=== PATIENT | male | born 1945 | race Caucasian/White ===

== ENCOUNTER 2019-07-17 12:06 | Outpatient (CLI) | payer MEDICARE, SELFPAY ==
[2019-07-17 12:46] LABS: CRP < 0.5 mg/dL (<1.0)
[2019-07-17 12:52] LABS: Erythrocyte Sedimentation Rate 23 mm/hr (0-20)
[2019-07-17 13:43] LABS: Vitamin D 25 Hydroxy 44.3 ng/mL
[2019-07-20 03:39] LABS: Homocysteine 6.4 umol/L (<11.4)
== END 2019-07-17 12:07 | disposition home or self-care (01) ==
PROVIDERS: PCP Internal Medicine; Visit Provider Internal Medicine
DX: R53.1 Weakness (principal); E55.9 Vitamin D deficiency, unspecified; I11.0 Hypertensive heart disease with heart failure
CPT/HCPCS: 36415; 82306; 83090; 85652; 86140

== ENCOUNTER 2019-08-30 15:19 | Outpatient (CLI) | payer MEDICARE, SELFPAY ==
--- NOTE | ~2019-08-30 | CT_ITS ---
EXAMINATION: CT lung screening DATE: 08/30/2019 15:47 INDICATION: Personal history of nicotine dependence, prior smoker with 35 pack year history TECHNIQUE: Computed tomography (CT) of the chest was performed without intravenous contrast. The dose -length product (DLP) was 03/01/2019 mGy-cm. Automated exposure control and iterative reconstruction technique were employed. COMPARISON: 03/01/2019 FINDINGS: There is a stable 7 mm nodule of the left lower lobe on image 82. Also seen is a stable 6 m m nodule adjacent to the hemidiaphragm the left lower lobe on image 87. A 7 mm nodule is present in t he right upper lobe on image 43 not currently identified on the prior examination, possibly infectiou s or inflammatory. There is moderate emphysema. There is no pleural effusion or pneumothorax. No path ologically enlarged thoracic lymph nodes are identified. The heart size is normal. Calcified right hi lar lymph nodes are consistent with old granulomatous disease. Stones are present in the nondistended gallbladder. There are bridging osteophytes at multiple levels in the spine, consistent with diffuse idiopathic skeletal hyperostosis (DISH). IMPRESSION: 1. Lung-RADS category 4A: Findings for which additional diagnostic testing and/or tissue sampling is recommended. Follow-up CT in three months is recommended. Reviewed, dictated and finalized at location [facility]. IMPRESSION: 1. Lung-RADS category 4A: Findings for which additional diagnostic testing and/ or tissue sampling is recommended. Follow-up CT in three months is recommended.
== END 2019-08-30 15:20 | disposition home or self-care (01) ==
LOC: ANHIMG 15:28
PROVIDERS: PCP Internal Medicine; Visit Provider Internal Medicine
DX: Z12.2 Encounter for screening for malignant neoplasm of respiratory organs (principal); Z87.891 Personal history of nicotine dependence
CPT/HCPCS: G0297

== ENCOUNTER 2019-11-13 13:24 | Outpatient (CLI) | payer MEDICARE, SELFPAY ==
[2019-11-13 14:13] LABS: Anion Gap 7 mmol/L (8-16); Blood Urea Nitrogen 15 mg/dL (9-20); Calcium 8.8 mg/dL (8.4-10.2); Carbon Dioxide 29 mmol/L (22-30); Chloride 104 mmol/L (98-107); Cholesterol 163 mg/dL (0-200); Estimated Glomerular Filt Rate > 60; Glucose 106 mg/dL (75-110); HDL Direct 63 mg/dL; Potassium 4.7 mmol/L (3.4-5.0); Sodium 140 mmol/L (137-145); Triglycerides 120 mg/dL (<150)
[2019-11-13 14:23] LABS: LDL Cholesterol Direct 78 mg/dL
[2019-11-13 14:32] LABS: Hemoglobin A1C 5.6 % (<5.7)
== END 2019-11-13 13:25 | disposition home or self-care (01) ==
PROVIDERS: PCP Internal Medicine; Visit Provider Internal Medicine
DX: Z12.5 Encounter for screening for malignant neoplasm of prostate (principal); E78.2 Mixed hyperlipidemia; I10 Essential (primary) hypertension; Z79.899 Other long term (current) drug therapy
CPT/HCPCS: 36415; 80048; 80061; 83036; 84153; 84443; G0103

== ENCOUNTER 2019-12-06 08:50 | Outpatient (CLI) | payer MEDICARE, SELFPAY ==
--- NOTE | ~2019-12-06 | CT_ITS ---
EXAMINATION: CT chest abdomen wo con DATE: 12/06/2019 09:37 INDICATION: Multiple pulmonary nodules TECHNIQUE: Computed tomography (CT) of the chest and abdomen was performed without intravenous contra st. Automated exposure control and iterative reconstruction technique were employed. Exam dose: 983. 87 mGy-cm total exam DLP. COMPARISON: 08/30/2019 CT lung screening FINDINGS: CHEST CT: Moderate emphysematous changes are again noted. Discoid atelectasis or scarring, lateral right upper lobe. 4 mm nodular density along right greater fissure, possibly a fissural node (series 4 image 70). New approximately 8 mm opacity in the posterior right lower lobe (image 94), associated with linear d iscoid opacity, Stable 7.5 mm peripheral left lower lobe nodule (image 87). Stable 7 mm opacity at posterolateral left lung base, left lower lobe (image 90). No pulmonary consolidation. Heart size is within normal range. Coronary artery calcification. Is aortic and great vessel calcific ation. No hilar or mediastinal mass lesion or lymphadenopathy. ABDOMEN CT: There are numerous small stones in the dependent aspect of the gallbladder. No gallbladder wall thick ening or pericholecystic fluid. No hepatic space-occupying mass lesion. No bile duct or pancreatic duct dilatation. No pancreatic mas s lesion, or calcification. Normal splenic size. There are calcified splenic granulomas consistent with old granulomatous disease . Normal morphology of the adrenal glands. Approximately 4 mm and 3 mm contiguous lower pole nonobstructing left renal calculi. No hydronephrosi s of either kidney. Approximately 2 cm exophytic upper pole right renal cyst. Otherwise no renal space occupying mass les ion is evident on this limited noncontrast examination. There is extensive calcification of the abdominal aorta, celiac, superior mesenteric and renal arteri es as well as common iliac arteries. No abdominal aortic aneurysm. No intraperitoneal or retroperitoneal mass lesion or adenopathy or ascites. Normal appendix. Multiple diverticula of the colon. No bowel obstruction, bowel wall thickening, pneu matosis or intraperitoneal free air. Degenerative changes of the cervical, thoracic and lumbar spine. No suspicious osteolytic or osteobla stic lesions are noted. IMPRESSION: New approximately 9 opacity in the posterior right lower lobe; recommend [address] ches t follow-up Additional stable pulmonary nodules Emphysema Cholelithiasis Nonobstructive left nephrolithiasis 2 cm exophytic upper pole right renal cyst Diverticulosis of the colon Reviewed, dictated and finalized at [facility]. Reviewed, dictated and finalized at location [facility]. IMPRESSION: New approximately 9 opacity in the posterior right lower lobe; rec ommend [address] chest follow-up Additional stable pulmonary nodules Emphysema Cholelithiasis Nonobstructive left nephrolithiasis 2 cm exophytic upper pole right renal cyst Diverticulosis of the colon
== END 2019-12-06 08:51 | disposition home or self-care (01) ==
LOC: ANHIMG 08:51
PROVIDERS: PCP Internal Medicine; Visit Provider Internal Medicine
DX: R91.8 Other nonspecific abnormal finding of lung field (principal); K57.30 Diverticulosis of large intestine without perforation or abscess without bleeding; N28.1 Cyst of kidney, acquired; K80.20 Calculus of gallbladder without cholecystitis without obstruction; J43.9 Emphysema, unspecified
CPT/HCPCS: 71250; 74150

== ENCOUNTER 2020-01-08 09:44 | Outpatient (CLI) | payer MEDICARE, SELFPAY ==
[2020-01-08 10:24] LABS: Alanine Aminotransferase 43 U/L (4-50); Albumin Level 4.2 g/dL (3.5-5.1); Alkaline Phosphatase 56 U/L (38-126); Anion Gap 9 mmol/L (8-16); Aspartate Amino Transferase 38 U/L (17-59); Bilirubin,Total 0.5 mg/dL (0.2-1.3); Blood Urea Nitrogen 18 mg/dL (9-20); Calcium 9.8 mg/dL (8.4-10.2); Carbon Dioxide 31 mmol/L (22-30); Chloride 101 mmol/L (98-107); Cholesterol 160 mg/dL (0-200); Estimated Glomerular Filt Rate > 60; Glucose 115 mg/dL (75-110); HDL Direct 62 mg/dL; Potassium 4.2 mmol/L (3.4-5.0); Sodium 141 mmol/L (137-145); Triglycerides 156 mg/dL (<150)
[2020-01-08 10:35] LABS: LDL Cholesterol Direct 71 mg/dL
[2020-01-11 11:34] LABS: Homocysteine 12.6 umol/L (<11.4)
[2020-01-12 08:01] LABS: Vitamin D 1,25 (OH)2 Total 46 pg/mL (18-72); Vitamin D2 1,25 (OH)2 <8 pg/mL; Vitamin D3 1,25 (OH)2 46 pg/mL
== END 2020-01-08 09:45 | disposition home or self-care (01) ==
PROVIDERS: PCP Internal Medicine; Visit Provider Internal Medicine
DX: E78.2 Mixed hyperlipidemia (principal); E55.9 Vitamin D deficiency, unspecified; I10 Essential (primary) hypertension; R79.89 Other specified abnormal findings of blood chemistry
CPT/HCPCS: 36415; 80048; 80061; 80076; 82652; 83090

== ENCOUNTER 2020-04-03 10:34 | Outpatient (CLI) | payer MEDICARE, SELFPAY ==
--- NOTE | ~2020-04-03 | CT_ITS ---
EXAMINATION: CT diagnostic chest wo con DATE: 04/03/2020 11:15 INDICATION: Multiple pulmonary nodules TECHNIQUE: Computed tomography (CT) of the chest was performed without intravenous contrast. Automate d exposure control and iterative reconstruction technique were employed. Exam dose: 173.97 mGy-cm to miguel ángel exam DLP. COMPARISON: 12/06/2019 CT chest abdomen 08/30/2019 and 03/01/2019 CT lung screening FINDINGS: Emphysematous changes are noted. Chronic discoid scarring, right upper lobe, stable since 12/06/2019 Stable small right greater fissural node. There is diminished prominence of discoid change in the right lower lobe. No new or enlarging right p ulmonary mass lesion is noted. Stable 7.5 mm peripheral left lower lobe pulmonary opacity. No significant change of subcentimeter nodular density at the posterolateral left lung base. Normal heart size. No pericardial or pleural effusion. No hilar or mediastinal mass lesion or lymphadenopathy. Aortic arch calcification. Coronary artery, aortic and great vessel calcifications. Multiple dependent gallstones. No gallbladder wall thickening is evident. Normal morphology of the adrenal glands. Stable exophytic upper pole right renal cyst. IMPRESSION: No new or enlarging pulmonary mass Emphysema Reviewed, dictated and finalized at [facility]. Reviewed, dictated and finalized at [facility]. 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
== END 2020-04-03 10:35 | disposition home or self-care (01) ==
LOC: ANHIMG 10:34
PROVIDERS: Family Provider Internal Medicine; PCP Internal Medicine; Visit Provider Internal Medicine
DX: R91.8 Other nonspecific abnormal finding of lung field (principal); J43.9 Emphysema, unspecified
CPT/HCPCS: 71250

== ENCOUNTER 2020-06-10 13:43 | Outpatient (CLI) | payer MEDICARE, SELFPAY ==
[2020-06-10 15:38] LABS: Hemoglobin A1C 5.8 % (<5.7)
[2020-06-10 15:41] LABS: Alanine Aminotransferase 25 U/L (4-50); Alkaline Phosphatase 53 U/L (38-126); Anion Gap 4 mmol/L (8-16); Aspartate Amino Transferase 26 U/L (17-59); Bilirubin,Total 0.4 mg/dL (0.2-1.3); Blood Urea Nitrogen 10 mg/dL (9-20); Calcium 8.8 mg/dL (8.4-10.2); Carbon Dioxide 32 mmol/L (22-30); Chloride 106 mmol/L (98-107); Cholesterol 153 mg/dL (0-200); Estimated Glomerular Filt Rate > 60; Glucose 101 mg/dL (75-110); HDL Direct 51 mg/dL; Potassium 3.7 mmol/L (3.4-5.0); Sodium 142 mmol/L (137-145); Triglycerides 109 mg/dL (<150)
[2020-06-10 15:51] LABS: LDL Cholesterol Direct 78 mg/dL
[2020-06-10 16:11] LABS: Prostate Specific Antigen 2.3 ng/mL (< OR = 4.0)
== END 2020-06-10 13:44 | disposition home or self-care (01) ==
LOC: ANHLAB 13:46
PROVIDERS: PCP Internal Medicine; Visit Provider Internal Medicine
DX: E78.2 Mixed hyperlipidemia (principal); Z79.899 Other long term (current) drug therapy; Z12.5 Encounter for screening for malignant neoplasm of prostate; I10 Essential (primary) hypertension
CPT/HCPCS: 36415; 80053; 80061; 83036; 84153; 84443; G0103

== ENCOUNTER 2020-11-18 10:48 | Outpatient (CLI) | payer MEDICARE, SELFPAY ==
--- NOTE | ~2020-11-18 | CT_ITS ---
EXAMINATION: CT diagnostic chest wo con DATE: 11/18/2020 11:08 INDICATION: Pulmonary nodules TECHNIQUE: Computed tomography (CT) of the chest was performed without intravenous contrast. The dose -length product (DLP) was 418.96 mGy-cm. Automated exposure control and iterative reconstruction tech [employer] were employed. COMPARISON: 04/03/2020, 12/06/2019, 08/30/2019 FINDINGS: There is moderate emphysema. There is a stable 7 mm subpleural nodule of the left lower lob e. Also seen is a stable 6 mm nodule of the left lower lobe adjacent to the hemidiaphragm on image 81 . No new or suspicious pulmonary nodules are identified. There is mild dependent atelectasis. No pleu ral effusion or pneumothorax is identified. No pathologically enlarged thoracic lymph nodes are ident ified. The heart size is normal. There is moderate bilateral gynecomastia. Calcified coronary artery atherosclerosis is noted. Calcified right hilar lymph nodes are consistent with old granulomatous dis ease. Cholelithiasis is noted. There are bridging osteophytes at multiple levels in the spine, consis tent with diffuse idiopathic skeletal hyperostosis (DISH). IMPRESSION: 1. Stable pulmonary nodules, consistent with old granulomatous disease. Reviewed, dictated and finalized at location A.
== END 2020-11-18 10:49 | disposition home or self-care (01) ==
LOC: ANHIMG 10:49
PROVIDERS: PCP Internal Medicine; Visit Provider Internal Medicine
DX: R91.8 Other nonspecific abnormal finding of lung field (principal)
CPT/HCPCS: 71250

== ENCOUNTER 2020-11-30 08:42 | Outpatient (CLI) | payer MEDICARE, SELFPAY ==
[2020-11-30 09:02] LABS: Basophils Percent Auto 0.3 % (0.2-1.2); Eosinophils Absolute Auto 0.4 K/mm3 (0-0.3); Eosinophils Percent Auto 5.6 % (0-4.4); Hematocrit 43.2 % (42.0-52.0); Hemoglobin 14.6 g/dL (14.0-18.0); Immature Granulocyte Absolute 0.03 K/mm3 (0.00-0.031); Immature Granulocyte Percent A 0.4 % (0-0.5); Lymphocytes Absolute Auto 2.46 K/mm3 (0.9-3.2); Lymphocytes Percent Auto 31.9 % (18.3-44.2); Mean Corpuscular HGB Conc 33.8 g/dl (32-36); Mean Corpuscular Hemoglobin 34.7 pg (26-34); Mean Corpuscular Volume 102.6 fl (80-100); Mean Platelet Volume 10.4 fl (7.4-10.4); Monocytes Absolute Auto 0.9 K/mm3 (0.1-0.6); Monocytes Percent Auto 11.3 % (2.6-8.5); Neutrophils Absolute Auto 3.9 K/mm3 (1.3-6.7); Neutrophils Percent Auto 50.5 % (45.5-73.1); Platelet Count Result 141 k/mm3 (150-375); Red Blood Count 4.21 M/mm3 (4.6-6.20); Red Cell Distribution Width 12.2 % (11.5-14.5); White Blood Count 7.7 K/mm3 (4.5-10.0)
[2020-11-30 09:11] LABS: Anion Gap 9 mmol/L (8-16); Blood Urea Nitrogen 16 mg/dL (9-20); Calcium 9.4 mg/dL (8.4-10.2); Carbon Dioxide 30 mmol/L (22-30); Chloride 102 mmol/L (98-107); Cholesterol 169 mg/dL (0-200); Estimated Glomerular Filt Rate > 60; Glucose 115 mg/dL (65-110); HDL Direct 82 mg/dL; Potassium 3.8 mmol/L (3.4-5.0); Sodium 141 mmol/L (137-145); Triglycerides 138 mg/dL (<150)
[2020-11-30 09:22] LABS: LDL Cholesterol Direct 71 mg/dL
[2020-11-30 09:52] LABS: Hemoglobin A1C 5.7 % (<5.7)
== END 2020-11-30 08:43 | disposition home or self-care (01) ==
PROVIDERS: PCP Internal Medicine; Visit Provider Internal Medicine
DX: E78.2 Mixed hyperlipidemia (principal); I10 Essential (primary) hypertension; Z79.899 Other long term (current) drug therapy
CPT/HCPCS: 36415; 80048; 80061; 83036; 85025

== ENCOUNTER → 2020-12-02 02:33 | Outpatient (CLI) | payer MEDICARE, SELFPAY ==
[2020-12-03 07:19] LABS: SARS-CoV-2 RNA PCR Negative
== END ==
PROVIDERS: PCP Internal Medicine; Visit Provider Internal Medicine
DX: Z20.822 Contact with and (suspected) exposure to COVID-19 (principal)
CPT/HCPCS: C9803; U0003; U0005

== ENCOUNTER 2020-12-16 15:48 | Outpatient (CLI) | payer MEDICARE, SELFPAY ==
--- NOTE | ~2020-12-16 | XR_ITS ---
XR ankle LT min 3V DATE: 12/16/2020 16:33 INDICATION: Chronic swelling, increasing in severity TECHNIQUE: 3 standing views; no true lateral view COMPARISON: None FINDINGS: There is generalized soft tissue swelling of the ankle. There is osteopenia. No fracture or dislocation of the ankle or disruption of the ankle mortise is detected. No periosteal reaction or bone destruction. Slight plantar calcaneal enthesopathy. IMPRESSION: Osteopenia Soft tissue swelling Slight plantar calcaneal enthesopathy Reviewed, dictated and finalized at location [facility].
== END 2020-12-16 15:49 | disposition home or self-care (01) ==
LOC: ANHIMG 16:01
PROVIDERS: PCP Internal Medicine; Visit Provider Podiatrist Foot & Ankle Surgery
DX: M21.172 Varus deformity, not elsewhere classified, left ankle (principal); M85.872 Other specified disorders of bone density and structure, left ankle and foot; M79.89 Other specified soft tissue disorders
CPT/HCPCS: 73610

== ENCOUNTER 2021-04-16 09:28 | Outpatient (CLI) | payer MEDICARE, SELFPAY ==
--- NOTE | 2021-04-16 09:51 | ECHO_ITS ---
Patient Info Name: Ruperto Clements Age: 75 years : 1945 Gender: Male Ht: 71 in Wt: 235 lbs BSA: 2.34 m2 HR: 81 bpm BP: 123 / 67 mmHg Heart Rhythm: Sinus Rhythm Technical Quality: Fair Exam Date: 04/16/2021 10:09 AM Exam Location: [facility] Patient Status: Outpatient Admit Date: 04/16/2021 Staff Ordering Physician: Geraldo Bearden MD Auditing Specialist: Cat Andujar RDCS Attending Provider: Geraldo Bearden MD Referring Physician: Suleiman QUINONEZ; Exam Type: CA echo doppler color flow Study Info Indications - NON RHEUMATIC aortic valve stenosis Complete two-dimensional, color flow and Doppler transthoracic echocardiogram is performed. Summary 1. Complete two-dimensional, color flow and Doppler transthoracic echocardiogram is performed. 2. There is mild concentric increased left ventricular wall thickness. 3. Left ventricular systolic function is normal, estimated at 60-65%. 4. Left atrial chamber dimension is mildly enlarged. 5. There is mild aortic valve stenosis with a peak velocity of 245 cm/s, mean gradient of 14 mmHg, and aortic valve area of 1.6 cm2. Left Ventricle Left ventricular chamber dimension is normal. Left ventricular systolic function is normal, estimated at 60-65%. There is mild concentric increased left ventricular wall thickness. The left ventricular diastolic function is grade I diastolic dysfunction. Right Ventricle Right ventricular chamber dimension is normal. Left Atria Left atrial chamber dimension is mildly enlarged. Right Atria Right atrial chamber dimension is normal. Aortic Valve The aortic valve is trileaflet. There is moderate aortic valve sclerosis. There is mild aortic valve stenosis with a peak velocity of 245 cm/s, mean gradient of 14 mmHg, and aortic valve area of 1.6 cm2. Pulmonic Valve The pulmonic valve is not well visualized. Mitral Valve The mitral valve has normal leaflets. Tricuspid Valve The tricuspid valve leaflets are normal. Pericardium/Pleural The pericardium appears normal. Aorta The aortic root size at the sinus of Valsalva is normal. Left Ventricular Outflow Tract Name Value Normal LVOT 2D LVOT Diameter 2.1 cm LVOT Doppler LVOT Peak Gradient 6 mmHg LVOT Mean Gradient 4 mmHg LVOT VTI 25 cm LVOT VTI/AV VTI Ratio 0.5 LVOT Stroke Volume 86 ml LVOT CO 19.0 l/min LVOT CI 8.1 l/min/m2 Pulmonic Valve Name Value Normal PV Doppler PV Peak Gradient 4 mmHg Mitral Valve Name Value Normal
== END 2021-04-16 09:29 | disposition home or self-care (01) ==
LOC: ANHCARD 09:29
PROVIDERS: PCP Internal Medicine; Visit Provider Internal Medicine
DX: I35.0 Nonrheumatic aortic (valve) stenosis (principal)
CPT/HCPCS: 93306

== ENCOUNTER 2021-05-10 09:41 | Outpatient (CLI) | payer MEDICARE, SELFPAY ==
[2021-05-10 10:06] LABS: Basophils Percent Auto 0.4 % (0.2-1.2); Eosinophils Absolute Auto 0.3 K/mm3 (0-0.3); Eosinophils Percent Auto 3.6 % (0-4.4); Hematocrit 43.3 % (42.0-52.0); Hemoglobin 14.9 g/dL (14.0-18.0); Immature Granulocyte Absolute 0.04 K/mm3 (0.00-0.031); Immature Granulocyte Percent A 0.4 % (0-0.5); Lymphocytes Absolute Auto 2.02 K/mm3 (0.9-3.2); Lymphocytes Percent Auto 21.2 % (18.3-44.2); Mean Corpuscular HGB Conc 34.4 g/dl (32-36); Mean Corpuscular Hemoglobin 35.1 pg (26-34); Mean Corpuscular Volume 102.1 fl (80-100); Mean Platelet Volume 10.6 fl (7.4-10.4); Monocytes Absolute Auto 0.9 K/mm3 (0.1-0.6); Monocytes Percent Auto 9.7 % (2.6-8.5); Neutrophils Absolute Auto 6.2 K/mm3 (1.3-6.7); Neutrophils Percent Auto 64.7 % (45.5-73.1); Platelet Count Result 185 k/mm3 (150-375); Red Blood Count 4.24 M/mm3 (4.6-6.20); Red Cell Distribution Width 12.2 % (11.5-14.5); White Blood Count 9.5 K/mm3 (4.5-10.0)
[2021-05-10 10:22] LABS: Alanine Aminotransferase 46 U/L (4-50); Albumin Level 4.5 g/dL (3.5-5.1); Alkaline Phosphatase 58 U/L (38-126); Anion Gap 10 mmol/L (8-16); Aspartate Amino Transferase 47 U/L (17-59); Bilirubin,Total 0.8 mg/dL (0.2-1.3); Blood Urea Nitrogen 15 mg/dL (9-20); Calcium 9.2 mg/dL (8.4-10.2); Carbon Dioxide 30 mmol/L (22-30); Chloride 99 mmol/L (98-107); Cholesterol 163 mg/dL (0-200); Estimated Glomerular Filt Rate > 60; Glucose 130 mg/dL (65-110); HDL Direct 63 mg/dL; Potassium 3.4 mmol/L (3.4-5.0); Sodium 139 mmol/L (137-145); Triglycerides 118 mg/dL (<150)
[2021-05-10 10:24] LABS: Hemoglobin A1C 5.6 % (<5.7)
[2021-05-10 10:34] LABS: LDL Cholesterol Direct 69 mg/dL
[2021-05-10 10:40] LABS: Free T4 Free Thyroxine 0.99 ng/mL (0.78-2.19); Vitamin D 25 Hydroxy 46.2 ng/mL
[2021-05-10 11:31] LABS: Folic Acid 15.5 ng/mL (2.76->20); Vitamin B12 > 1000.0 pg/mL (239-931)
== END 2021-05-10 09:42 | disposition home or self-care (01) ==
LOC: ANHLAB 09:47
PROVIDERS: PCP Internal Medicine; Visit Provider Internal Medicine
DX: Z13.29 Encounter for screening for other suspected endocrine disorder (principal); Z79.899 Other long term (current) drug therapy; E53.8 Deficiency of other specified B group vitamins; R73.09 Other abnormal glucose; E78.2 Mixed hyperlipidemia; I10 Essential (primary) hypertension; E55.9 Vitamin D deficiency, unspecified
CPT/HCPCS: 36415; 80053; 80061; 82306; 82607; 82746; 83036; 84439; 84443; 85025

== ENCOUNTER 2021-10-06 09:15 | Outpatient (CLI) | payer MEDICARE, SELFPAY ==
[2021-10-06 10:10] LABS: Alanine Aminotransferase 27 U/L (6-50); Albumin Level 4.3 g/dL (3.5-5.1); Alkaline Phosphatase 55 U/L (38-126); Anion Gap 13 mmol/L (8-16); Aspartate Amino Transferase 26 U/L (17-59); Bilirubin,Total 0.4 mg/dL (0.2-1.3); Blood Urea Nitrogen 17 mg/dL (9-20); Calcium 9.3 mg/dL (8.4-10.2); Carbon Dioxide 22 mmol/L (22-30); Chloride 105 mmol/L (98-107); Cholesterol 158 mg/dL (0-200); Estimated Glomerular Filt Rate > 60; Glucose 102 mg/dL (65-110); HDL Direct 54 mg/dL; Potassium 3.6 mmol/L (3.4-5.0); Sodium 140 mmol/L (137-145); Triglycerides 159 mg/dL (<150)
[2021-10-06 10:21] LABS: LDL Cholesterol Direct 64 mg/dL
[2021-10-06 10:25] LABS: Free T4 Free Thyroxine 0.96 ng/mL (0.78-2.19); Vitamin D 25 Hydroxy 44.6 ng/mL
[2021-10-06 10:28] LABS: Hemoglobin A1C 5.6 % (<5.7)
== END 2021-10-06 09:16 | disposition home or self-care (01) ==
PROVIDERS: PCP Internal Medicine; Visit Provider Internal Medicine
DX: E78.2 Mixed hyperlipidemia (principal); I10 Essential (primary) hypertension; Z13.29 Encounter for screening for other suspected endocrine disorder; Z79.899 Other long term (current) drug therapy; R73.09 Other abnormal glucose; E55.9 Vitamin D deficiency, unspecified
CPT/HCPCS: 36415; 80053; 80061; 82306; 83036; 84439; 84443

== ENCOUNTER 2022-03-21 10:00 | Outpatient (CLI) | payer MEDICARE, SELFPAY ==
[2022-03-21 10:30] LABS: Alanine Aminotransferase 28 U/L (6-50); Albumin Level 4.4 g/dL (3.5-5.1); Alkaline Phosphatase 54 U/L (38-126); Anion Gap 7 mmol/L (8-16); Aspartate Amino Transferase 29 U/L (17-59); Bilirubin,Total 0.7 mg/dL (0.2-1.3); Blood Urea Nitrogen 16 mg/dL (9-20); Calcium 8.8 mg/dL (8.4-10.2); Carbon Dioxide 30 mmol/L (22-30); Chloride 102 mmol/L (98-107); Cholesterol 175 mg/dL (0-200); Estimated Glomerular Filt Rate > 60; Glucose 119 mg/dL (65-110); HDL Direct 82 mg/dL; Sodium 139 mmol/L (137-145); Triglycerides 88 mg/dL (<150)
[2022-03-21 10:41] LABS: LDL Cholesterol Direct 62 mg/dL
[2022-03-21 11:01] LABS: Prostate Specific Antigen 4.2 ng/mL (< OR = 4.0)
[2022-03-21 11:37] LABS: Hemoglobin A1C 5.6 % (<5.7)
[2022-03-21 12:40] LABS: Free T4 Free Thyroxine 0.99 ng/mL (0.78-2.19)
== END 2022-03-21 10:01 | disposition home or self-care (01) ==
LOC: ANHLAB 10:02
PROVIDERS: PCP Internal Medicine; Visit Provider Internal Medicine
DX: R73.09 Other abnormal glucose (principal); I10 Essential (primary) hypertension; Z79.899 Other long term (current) drug therapy; Z13.29 Encounter for screening for other suspected endocrine disorder; Z12.5 Encounter for screening for malignant neoplasm of prostate; E55.9 Vitamin D deficiency, unspecified; E78.2 Mixed hyperlipidemia
CPT/HCPCS: 36415; 80053; 80061; 82306; 83036; 84153; 84439; 84443; G0103

== ENCOUNTER 2022-03-30 13:36 | Outpatient (CLI) | payer MEDICARE, SELFPAY ==
--- NOTE | ~2022-03-30 | CT_ITS ---
EXAMINATION: CT diagnostic chest wo con DATE: 03/30/2022 13:57 INDICATION: Lung nodules TECHNIQUE: Computed tomography (CT) of the chest was performed without intravenous contrast. Addition al 3D reconstructions utilizing coronal maximum intensity projection (MIP) were performed. Automated exposure control and iterative reconstruction technique were employed. The dose-length product was 17 0.82 mGy-cm. COMPARISON: 11/18/2020 and 03/01/2019 FINDINGS: Moderate emphysema. No interval change in subpleural nodules in the basilar right left lower lobe eliza suring 8 x 5 mm subpleural nodule posterolaterally and 7 x 5 mm along the dome of the left hemidiaphr agm. New 3 mm right lower lobe nodule on series 4, image 83. Unchanged cluster of a few tiny nodules in the region of more severe emphysema in the left upper lobe. Mild atelectasis at the bilateral lung bases and dependent lower lobes. Additional mild discoid atelectasis posterior right upper lobe. No pneumonia, pulmonary edema or pleural effusion. A few calcified right hilar lymph nodes consistent wi th old granulomatous disease. No pathologically enlarged thoracic lymphadenopathy. Heart size is nor mal. Atherosclerotic coronary artery calcific location. Aortic valve calcific location. Small pericar dial effusion. Thoracic aorta is normal in caliber. There are a few very small gallstones in the depe ndent aspect of the normal gallbladder. 2 cm exophytic right renal cyst. There are small splenic calc ifications consistent with old granulomatous disease. Moderate thoracic spondylosis with bridging ost eophytes at multiple levels consistent with diffuse idiopathic skeletal hyperostosis (DISH). IMPRESSION: 1. New 3 mm right lower lobe nodule with prior Fleischner criteria consider 12 month follow-up low-do se noncontrast chest CT given the underlying moderate emphysema. A few additional larger but unchange d pulmonary nodules which are likely benign sequela of old granulomatous disease. 2. Cholelithiasis. Reviewed, dictated and finalized at location B. 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 New 3 mm right lower lobe nodule with prior Fleischner criteria consider 12 month follow-up low-dose noncontrast chest CT given the underlying moderate emp hysema. A few additional larger but unchanged pulmonary nodules which are likel y benign sequela of old granulomatous disease. 2. Cholelithiasis.
== END 2022-03-30 13:37 | disposition home or self-care (01) ==
PROVIDERS: PCP Internal Medicine; Visit Provider Internal Medicine
DX: R91.8 Other nonspecific abnormal finding of lung field (principal); Z87.891 Personal history of nicotine dependence; K80.20 Calculus of gallbladder without cholecystitis without obstruction
CPT/HCPCS: 71250

== ENCOUNTER 2022-04-13 13:07 | Outpatient (CLI) | payer MEDICARE, SELFPAY ==
--- NOTE | ~2022-04-13 | XR_ITS ---
AP and oblique views of the bilateral ribs, and PA and lateral chest radiographs Clinical History: Pain Findings: No rib fracture is seen. Osseous alignment is anatomic. Lungs are clear, without focal cons olidation or pleural effusion. Cardiomediastinal contour is within normal limits. Soft tissues are un remarkable. Impression: No rib fracture is seen. Reviewed, dictated and finalized at [facility]. 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
== END 2022-04-13 13:08 | disposition home or self-care (01) ==
LOC: ANHIMG 13:10
PROVIDERS: PCP Internal Medicine; Visit Provider Internal Medicine
DX: R07.89 Other chest pain (principal)
CPT/HCPCS: 71046; 71110

== ENCOUNTER 2022-07-29 11:55 | Outpatient (CLI) | payer MEDICARE, SELFPAY ==
[2022-07-29 12:30] LABS: Basophils Percent Auto 0.2 % (0.2-1.2); Eosinophils Absolute Auto 0.5 K/mm3 (0-0.3); Eosinophils Percent Auto 5.8 % (0-4.4); Hematocrit 45.8 % (42.0-52.0); Hemoglobin 15.3 g/dL (14.0-18.0); Immature Granulocyte Absolute 0.03 K/mm3 (0.00-0.031); Immature Granulocyte Percent A 0.4 % (0-0.5); Lymphocytes Absolute Auto 2.67 K/mm3 (0.9-3.2); Lymphocytes Percent Auto 31.6 % (18.3-44.2); Mean Corpuscular HGB Conc 33.4 g/dl (32-36); Mean Corpuscular Hemoglobin 32.6 pg (26-34); Mean Corpuscular Volume 97.7 fl (80-100); Monocytes Absolute Auto 0.8 K/mm3 (0.1-0.6); Monocytes Percent Auto 9.2 % (2.6-8.5); Neutrophils Absolute Auto 4.5 K/mm3 (1.3-6.7); Neutrophils Percent Auto 52.8 % (45.5-73.1); Platelet Count Result 170 k/mm3 (150-375); Red Blood Count 4.69 M/mm3 (4.6-6.20); Red Cell Distribution Width 12.5 % (11.5-14.5); White Blood Count 8.4 K/mm3 (4.5-10.0)
[2022-07-29 12:59] LABS: LDL Cholesterol Direct 71 mg/dL
[2022-07-29 13:29] LABS: Free T4 Free Thyroxine 0.87 ng/mL (0.78-2.19); Vitamin D 25 Hydroxy 49.3 ng/mL
[2022-07-29 13:36] LABS: Hemoglobin A1C 5.8 % (<5.7)
[2022-07-29 14:09] LABS: Alanine Aminotransferase 30 U/L (6-50); Albumin Level 4.7 g/dL (3.5-5.1); Alkaline Phosphatase 56 U/L (38-126); Anion Gap 7 mmol/L (8-16); Aspartate Amino Transferase 28 U/L (17-59); Bilirubin,Total 0.8 mg/dL (0.2-1.3); Blood Urea Nitrogen 10 mg/dL (9-20); Calcium 9.3 mg/dL (8.4-10.2); Carbon Dioxide 32 mmol/L (22-30); Chloride 103 mmol/L (98-107); Cholesterol 173 mg/dL (0-200); Estimated Glomerular Filt Rate > 60; Glucose 114 mg/dL (65-110); HDL Direct 76 mg/dL; Potassium 3.8 mmol/L (3.4-5.0); Sodium 142 mmol/L (137-145); Triglycerides 136 mg/dL (<150)
== END 2022-07-29 11:56 | disposition home or self-care (01) ==
LOC: ANHLAB 11:57
PROVIDERS: PCP Internal Medicine; Visit Provider Internal Medicine
DX: Z13.29 Encounter for screening for other suspected endocrine disorder (principal); I10 Essential (primary) hypertension; Z79.899 Other long term (current) drug therapy; E55.9 Vitamin D deficiency, unspecified; R73.09 Other abnormal glucose; E78.2 Mixed hyperlipidemia
CPT/HCPCS: 36415; 80053; 80061; 82306; 83036; 84439; 84443; 85025

== ENCOUNTER 2022-09-30 14:20 | Outpatient (CLI) | payer MEDICARE, SELFPAY ==
--- NOTE | ~2022-09-30 | US_ITS ---
EXAMINATION: US carotid duplex BI DATE: 09/30/2022 15:15 INDICATION: Personal history of TIA. TECHNIQUE: Grayscale, color Doppler, and pulsed Doppler images of the cervical carotid arteries were obtained. The degree of vessel stenosis is placed in one of the following categories: normal, <50%, 5 0-69%, >=70% but less than near-occlusion, near-occlusion, or total occlusion. Note that percent sten osis relative to normal distal artery lumen diameter is indirectly measured from velocity measurement s as described by Tremayne, et al. Radiology 2003; 229:340-346. Notes: Normal: Peak systolic velocity <125 centimeters/sec and no plaque <50%. Peak systolic velocity <125 ( EDV <40; ICA/CCA PSV ratio <2.0; used these factors only a tandem lesions or low cardiac output or co ntralateral disease) 50-69 %: PSV 125-230 (EDV 40-100; ratio 2-4) >= 70% but less than near occlusion: PSV greater than 230 (EDV > 100; ratio> 4.0) Near Occlusion: PSV that is variable; markedly narrowed lumen Occlusion: Absent flow on color/spectral Doppler and no lumen on romero scale. COMPARISON: None. FINDINGS: RIGHT: The right common carotid artery (CCA) peak systolic velocity (PSV) is 69 cm/s. The right internal car otid artery (ICA) PSV is 62 cm/s. The right ICA end-diastolic velocity (EDV) is 23 cm/s. The right IC A/CCA PSV ratio is 0.9. The external carotid artery (ECA) PSV is 76 cm/s. There is antegrade flow in the right vertebral artery. LEFT: The left CCA PSV is 67 cm/s. The left ICA PSV is 62 cm/s. The left ICA EDV is 12 cm/s. The left ICA/C CA PSV ratio is 0.9. The ECA PSV is 59 cm/s. There is antegrade flow in the left vertebral artery. IMPRESSION: 1. Less than 50% stenosis in the right internal carotid artery by sonographic criteria. 2. Less than 50% stenosis in the left internal carotid artery by sonographic criteria. Reviewed, dictated and finalized at location A. IMPRESSION: 1. Less than 50% stenosis in the right internal carotid artery by sonographic c julius. 2. Less than 50% stenosis in the left internal carotid artery by sonographic ramon avalos.
== END 2022-09-30 14:21 | disposition home or self-care (01) ==
PROVIDERS: PCP Internal Medicine; Visit Provider Internal Medicine
DX: R01.1 Cardiac murmur, unspecified (principal); Z86.73 Personal history of transient ischemic attack (TIA), and cerebral infarction without residual deficits; I65.23 Occlusion and stenosis of bilateral carotid arteries
CPT/HCPCS: 93880

== ENCOUNTER 2022-11-21 15:24 | Outpatient (NON) | payer MEDICARE, SELFPAY | END 2022-11-21 15:25 | disposition home or self-care (01) | LOC: ANHLAB 15:28 | PROVIDERS: PCP Internal Medicine; Visit Provider Nurse Practitioner | DX: C44.329 Squamous cell carcinoma of skin of other parts of face (principal) | CPT/HCPCS: 88305 ==

== ENCOUNTER 2022-12-12 12:52 | Outpatient (NON) | payer MEDICARE, SELFPAY | END 2022-12-12 12:53 | disposition home or self-care (01) | LOC: ANHLAB 12:52 | PROVIDERS: PCP Internal Medicine; Visit Provider Nurse Practitioner | DX: C44.320 Squamous cell carcinoma of skin of unspecified parts of face (principal) | CPT/HCPCS: 88305; 88331 ==

== ENCOUNTER 2022-12-26 13:03 | Outpatient (CLI) | payer MEDICARE, SELFPAY ==
[2022-12-26 13:33] LABS: Appearance Urine Clear (Clear); Bilirubin Urine Negative (Negative); Blood Urine Negative (Negative); Color Urine Yellow (Yellow); Glucose Urine UA Negative (Negative); Ketones Urine Negative (Negative); Leukocyte Esterase Ur Negative LEU/UL (Negative); Nitrate Urine Negative (Negative); Protein Urine Negative (Negative); Specific Grav Ur 1.018 (1.001-1.035); pH Urine 7.5 (5.0-9.0)
[2022-12-26 13:41] LABS: Add Urine Microscopic? NO
[2022-12-26 13:44] LABS: Alanine Aminotransferase 25 U/L (6-50); Albumin Level 4.4 g/dL (3.5-5.1); Alkaline Phosphatase 54 U/L (38-126); Anion Gap 8 mmol/L (8-16); Aspartate Amino Transferase 26 U/L (17-59); Bilirubin,Total 0.7 mg/dL (0.2-1.3); Blood Urea Nitrogen 15 mg/dL (9-20); Calcium 9.3 mg/dL (8.4-10.2); Carbon Dioxide 29 mmol/L (22-30); Chloride 105 mmol/L (98-107); Cholesterol 176 mg/dL (0-200); Estimated Glomerular Filt Rate > 60; Glucose 104 mg/dL (65-110); HDL Direct 69 mg/dL; Potassium 3.9 mmol/L (3.4-5.0); Sodium 142 mmol/L (137-145); Triglycerides 146 mg/dL (<150)
[2022-12-26 13:56] LABS: LDL Cholesterol Direct 78 mg/dL
[2022-12-26 15:43] LABS: Hemoglobin A1C 5.5 % (<5.7)
[2022-12-27 10:01] LABS: Prostate Specific Antigen 3.1 ng/mL (< OR = 4.0)
== END 2022-12-26 13:04 | disposition home or self-care (01) ==
LOC: ANHLAB 13:05
PROVIDERS: PCP Internal Medicine; Visit Provider Internal Medicine
DX: I10 Essential (primary) hypertension (principal); Z79.899 Other long term (current) drug therapy; R73.09 Other abnormal glucose; E78.2 Mixed hyperlipidemia; Z12.5 Encounter for screening for malignant neoplasm of prostate
CPT/HCPCS: 36415; 80053; 80061; 81003; 83036; 84153; G0103

== ENCOUNTER 2023-02-03 00:38 | Emergency (ER) | payer MEDICARE, SELFPAY ==
[2023-02-03] VITALS (8 sets, daily range): BP systolic 65–110; BP diastolic 46–74; PULSE 82–100; RESP 15–25; TEMP 36.2–37; O2SAT 95–98
--- NOTE | ~2023-02-03 | CT_ITS ---
CT head without contrast Indication: Trauma COMPARISON: 02/19/2019 Technique: Serial scans were obtained through the brain without the administration of contrast. Dose reduction technique was used on this scan by utilizing automated exposure control and iterative recon struction technique. The dose-length product (DLP) was 681.00 mGy-cm. Findings: There is no evidence of intracranial hemorrhage, mass lesion, or acute infarct. The ventri cles and subarachnoid spaces are dilated, consistent with mild atrophy. Low attenuation regions are seen within the periventricular white matter bilaterally, likely representing changes from chronic mi crovascular ischemic disease. There is no evidence of edema, mass effect or midline shift. Left cran iotomy again noted. The visualized paranasal sinuses and mastoid air cells are clear. Impression: No intracranial hemorrhage, mass, or acute infarct. Atrophy and chronic white matter changes, as above. Reviewed, dictated and finalized at [facility]. 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 Atrophy and chronic white matter changes, as above.
--- NOTE | ~2023-02-03 | CT_ITS ---
Noncontrast CT scan of the cervical spine Technique: Multiple contiguous axial [address] images of the cervical spine were obtained and rec onstructed in 2D sagittal and coronal planes on the acquisition scanner. Dose reduction technique was used on this scan by utilizing automated exposure control, adjustment of the mA and/or kV according to patient size. The dose-length product (DLP) was 493.02 mGy-cm. Clinical History: Pain Findings: No fractures or dislocations. There is moderate to advanced degenerative disc change throu ghout the cervical spine. There is bilateral neural foraminal narrowing at C3-C4, C4-C5, C5-C6, and C 6-C7. No prevertebral soft tissue swelling. Impression: No fracture or subluxation of the cervical spine. Degenerative change, as above. Reviewed, dictated and finalized at [facility]. 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 Degenerative change, as above.
--- NOTE | ~2023-02-03 | CT_ITS ---
Clinical Indication: Trauma CT Scan of the Chest, Abdomen, and Pelvis with Contrast: Technique: Contiguous sections were acquired throughout the chest, abdomen, and pelvis after intraven ous administration of 100 cc of Omnipaque 350. Dose reduction technique was used on this scan by uti lizing automated exposure control and iterative reconstruction technique. The dose-length product (DL P) was 1739.39 mGy-cm. Findings: There is no evidence of any significant mediastinal, hilar or axillary lymphadenopathy. The mediastin al soft tissues and vascular structures appear normal. There is no evidence of pleural or pericardial effusion. The lungs are clear, aside from mild dependent atelectatic change. There is moderate emphysema in the left upper lobe. There are acute fractures of the left eighth, ninth, 10th, 11th rib.. There is irregularity of the inferior spleen, compatible with splenic laceration. There is perispleni c and perihepatic hemorrhagic ascites. There is an 11 mm round focus of avid contrast enhancement at the inferior margin of the spleen (axial image 124), consistent with a pseudoaneurysm or active extra vasation. The liver, pancreas, adrenal glands are within normal limits. Small gallstones are present. Small non obstructing left lower pole renal stones measuring up to 5 mm. Probable small right renal cyst. There are atherosclerotic calcifications of the aorta. No lymphadenopathy. No bowel obstruction or bowel wall thickening. There is no evidence to suggest acute appendicitis. Urinary bladder is unremarkable. Prostate gland and seminal vesicles are unremarkable. Small amount o f pelvic ascites present. Impression: Splenic laceration, probably grade 3, with 11 mm focus of active extravasation versus pseudoaneurysm of the inferior aspect. Hemorrhagic ascites in the perihepatic, perisplenic, and pelvic regions. Acute fractures of the and left eighth, ninth, 10th, 11th ribs. Cholelithiasis and left nephrolithiasis. Moderate emphysema left upper lobe. Reviewed, dictated and finalized at location [facility] 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 Hemorrhagic ascites in the perihepatic, perisplenic, and pelvic regions. Acute fractures of the and left eighth, ninth, 10th, 11th ribs. Cholelithiasis and left nephrolithiasis. Moderate emphysema left upper lobe.
[2023-02-03 01:44] LABS: Basophils Percent Auto 0.4 % (0.2-1.2); Eosinophils Absolute Auto 0.2 K/mm3 (0-0.3); Eosinophils Percent Auto 1.3 % (0-4.4); Hematocrit 35.4 % (42.0-52.0); Hemoglobin 11.4 g/dL (14.0-18.0); Immature Granulocyte Absolute 0.11 K/mm3 (0.00-0.031); Lymphocytes Absolute Auto 1.61 K/mm3 (0.9-3.2); Lymphocytes Percent Auto 14.3 % (18.3-44.2); Mean Corpuscular HGB Conc 32.2 g/dl (32-36); Mean Corpuscular Hemoglobin 32.9 pg (26-34); Mean Platelet Volume 11.3 fl (7.4-10.4); Monocytes Absolute Auto 0.7 K/mm3 (0.1-0.6); Monocytes Percent Auto 6.2 % (2.6-8.5); Neutrophils Absolute Auto 8.6 K/mm3 (1.3-6.7); Neutrophils Percent Auto 76.8 % (45.5-73.1); Platelet Count Result 150 k/mm3 (150-375); Red Blood Count 3.47 M/mm3 (4.6-6.20); Red Cell Distribution Width 12.7 % (11.5-14.5); White Blood Count 11.2 K/mm3 (4.5-10.0)
[2023-02-03] MEDS: SODIUM CHLORIDE 0.9% IV 1,000 ML 999 ML IV CONT ×3 (01:46→03:28)
[2023-02-03 02:00] LABS: Alanine Aminotransferase 20 U/L (6-50); Albumin Level 3.4 g/dL (3.5-5.1); Alkaline Phosphatase 49 U/L (38-126); Anion Gap 12 mmol/L (8-16); Aspartate Amino Transferase 23 U/L (17-59); Bilirubin,Total 0.3 mg/dL (0.2-1.3); Blood Urea Nitrogen 12 mg/dL (9-20); Calcium 8.2 mg/dL (8.4-10.2); Carbon Dioxide 20 mmol/L (22-30); Chloride 110 mmol/L (98-107); Estimated Glomerular Filt Rate > 60; Glucose 130 mg/dL (65-110); Potassium 3.7 mmol/L (3.4-5.0); Sodium 142 mmol/L (137-145)
[2023-02-03 02:01] LABS: Ethanol 137 mg/dL (<10)
--- NOTE | 2023-02-03 03:27 | ECG_ITS ---
Measurements Intervals [place] Rate: 92 P: 42 MA: 218 QRS: 18 QRSD: 86 T: 67 QT: 368 QTc: 457 Interpretive Statements SINUS RHYTHM WITH FIRST DEGREE AV BLOCK LOW QRS VOLTAGE IN PRECORDIAL LEADS [QRS DEFLECTION < 1.0 mV IN CHEST LEADS] NONSPECIFIC T-WAVE ABNORMALITY ABNORMAL ECG NO PREVIOUS ECG AVAILABLE FOR COMPARISON Electronically Signed On 02-03-2023 13:23:19 GLAZE CARRIER by Anurag Anne M.D.
--- NOTE | 2023-02-03 03:48 | ED.GENADULT ---
HPI - General Adult General Chief complaint: Fall Stated complaint: fall, hit head Time Seen by Provider: 02/03/23 01:03 Related Data Home Medications Medication Instructions Recorded Confirmed ascorbic acid (vitamin C) 500 mg mg PO 09/18/19 01/06/23 capsule cholecalciferol (vitamin D3) 50 50 mcg PO DAILY 03/24/22 01/06/23 mcg (2,000 unit) capsule Allergies Allergy/AdvReac Type Severity Reaction Status Date / Time No Known Allergies Allergy Verified 01/06/23 10:37 [facility] Past Medical History Medical History (Updated 02/03/23 @ 03:57 by Santana López MD) Abnormal finding of blood chemistry, unspecified Abnormal tandem gait test Actinic keratosis Aortic stenosis BMI 30.0-30.9,adult BMI 31.0-31.9,adult BMI 32.0-32.9,adult Carotid bruit Change in mole Chest pain Closed fracture of right ankle Colon cancer screening Elevated glucose Elevated homocysteine Elevated PSA Encounter for Medicare annual wellness exam Encounter for routine adult health examination with abnormal findings Encounter for routine adult health examination without abnormal findings Fracture of shaft of fibula (11/03/17) Fuchs' corneal dystrophy Gait disorder Hearing loss History of CVA in adulthood HTN (hypertension), benign Hx of nicotine dependence Hyperlipidemia Hypersomnia Hypokalemia Left-sided weakness Lung nodules Murmur Occipital cerebral infarction 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 Orthostatic hypotension Other specified abnormal findings of blood chemistry Pedal edema Peripheral neuropathy Skin lesion of face Symptoms of cerebrovascular accident (CVA) Vascular disease Vitamin D deficiency Family History Family History Father Hypertension Mother Hypertension Social History Social History Smoking status: Former smoker Tobacco type: smokeless tobacco Smokeless tobacco user: other Smoking end date: 03/06/99 Alcohol intake: current Substance use: never Lack of Transportation: No Lack of Food: Never True Current Housing: I Have Housing Concerned About Future Housing: No Difficulty Paying Gas/Electric Bills: No Difficulty Paying for Meds: No Currently Unemployed: No Education: Master's Degree or Higher Difficulty w/ Childcare or Family Care: No Living arrangements: with family Occupation/Education: retired Gender identity (if verbalized by the patient): Male Course Vital Signs Vital signs: Vital Signs Temperature 37.0 C 02/03/23 00:39 Pulse Rate 100 02/03/23 00:39 Respiratory Rate 25 H 02/03/23 00:39 Blood Pressure 65/46 L 02/03/23 00:39 Pulse Oximetry 97 02/03/23 00:39 Oxygen Delivery Room Air 02/03/23 00:39 Temperature 37.0 C 02/03/23 00:39 Pulse Rate 90 02/03/23 03:24 Respiratory Rate 15 02/03/23 03:24 Blood Pressure 74/50 L 02/03/23 03:24 Pulse Oximetry 98 02/03/23 03:24 Oxygen Delivery Room Air 02/03/23 00:39 Medical Decision Making MDM Narrative Medical decision making narrative: differential diagnosis includes traumatic injury, rib fractures, CT scan of the head C-spine showed no acute abnormalities. CT chest abdomen pelvis showed a fracture of the left posterior 9th 10th and 11th ribs also the patient was found to have a grade 3 splenic laceration with active hemorrhage and moderate. Splenic hematoma and moderate hemoperitoneum Vital Signs Vital Signs: Vital Signs Temperature 37.0 C 02/03/23 00:39 Pulse Rate 100 02/03/23 00:39 Respiratory Rate 25 H 02/03/23 00:39 Blood Pressure 65/46 L 02/03/23 00:39 Pulse Oximetry 97 02/03/23 00:39 Oxygen Delivery Room Air 02/03/23 00:39 Temperature 37.0 C 02/03/23 00:39 Pulse Rate 90 02/03/23 03:24 Respiratory Rate 15 02/03/23 03:24 Blood Pressure 74/50 L 02/03/23 03:24 Pulse Oximetry 98 02/03/23 03:24 Oxygen Deli
[2023-02-03 03:59] LABS: Troponin I < 0.012 ng/mL (0.000-0.034)
[2023-02-03] MEDS: fentaNYL CITRATE INJ (*CRX) 100 MCG/2 ML VIAL 50 MCG IV PUSH (04:17)
[2023-02-03] MEDS: SODIUM CHLORIDE 0.9% IV 250 ML 30 ML IV CONT (04:19)
[2023-02-03] MEDS: TUBING, BLOOD SET 1 EACH XX ×2 (04:31→05:21)
[2023-02-03 04:43] LABS: Lactic Acid Reflex 3.5 mmol/L (0.7-2.0)
[2023-02-03] MEDS: SODIUM CHLORIDE 0.9% IV 250 ML 500 ML (05:21)
--- NOTE | 2023-02-03 05:34 | PC.NURSE ---
Patient transferred with blood transfusing.
[2023-02-03 07:24] LABS: Reflex Lactic Acid Yes or No Add Lactic
== END 2023-02-03 05:36 | disposition short-term general hospital (02) ==
PROVIDERS: Emergency Provider Emergency Medicine; PCP Internal Medicine
DX: S22.42XA Multiple fractures of ribs, left side, initial encounter for closed fracture (principal); S36.039A Unspecified laceration of spleen, initial encounter; I10 Essential (primary) hypertension; I99.9 Unspecified disorder of circulatory system; E78.5 Hyperlipidemia, unspecified; E55.9 Vitamin D deficiency, unspecified; H18.519 Endothelial corneal dystrophy, unspecified eye; G62.9 Polyneuropathy, unspecified; Z86.73 Personal history of transient ischemic attack (TIA), and cerebral infarction without residual deficits; Z87.891 Personal history of nicotine dependence; Z87.442 Personal history of urinary calculi; Z79.82 Long term (current) use of aspirin; K80.20 Calculus of gallbladder without cholecystitis without obstruction; N20.0 Calculus of kidney; J43.9 Emphysema, unspecified; I44.0 Atrioventricular block, first degree; R94.31 Abnormal electrocardiogram [ECG] [EKG]; W19.XXXA Unspecified fall, initial encounter
CPT/HCPCS: 36415; 36430; 70450; 71260; 72125; 74177; 80053; 80307; 83605; 84484; 85025; 86900; 86901; 86920; 93005; 96361; 96374; 99285; J3010; J7030; J7050; P9016; Q9967

== ENCOUNTER 2023-02-21 16:17 | Outpatient (CLI) | payer MEDICARE, SELFPAY ==
[2023-02-21 17:06] LABS: Basophils Percent Auto 0.4 % (0.2-1.2); Eosinophils Absolute Auto 0.3 K/mm3 (0-0.3); Hemoglobin 12.4 g/dL (14.0-18.0); Immature Granulocyte Absolute 0.03 K/mm3 (0.00-0.031); Immature Granulocyte Percent A 0.4 % (0-0.5); Lymphocytes Absolute Auto 2.23 K/mm3 (0.9-3.2); Lymphocytes Percent Auto 28.9 % (18.3-44.2); Mean Corpuscular Hemoglobin 30.8 pg (26-34); Mean Corpuscular Volume 99.5 fl (80-100); Mean Platelet Volume 10.6 fl (7.4-10.4); Monocytes Absolute Auto 0.9 K/mm3 (0.1-0.6); Monocytes Percent Auto 11.4 % (2.6-8.5); Neutrophils Absolute Auto 4.2 K/mm3 (1.3-6.7); Neutrophils Percent Auto 54.9 % (45.5-73.1); Platelet Count Result 263 k/mm3 (150-375); Red Blood Count 4.02 M/mm3 (4.6-6.20); Red Cell Distribution Width 13.5 % (11.5-14.5); White Blood Count 7.7 K/mm3 (4.5-10.0)
[2023-02-21 17:21] LABS: Anion Gap 10 mmol/L (8-16); Blood Urea Nitrogen 12 mg/dL (9-20); Calcium 9.5 mg/dL (8.4-10.2); Carbon Dioxide 26 mmol/L (22-30); Chloride 105 mmol/L (98-107); Estimated Glomerular Filt Rate > 60; Glucose 100 mg/dL (65-110); Potassium 3.8 mmol/L (3.4-5.0); Sodium 141 mmol/L (137-145)
== END 2023-02-21 16:18 | disposition home or self-care (01) ==
LOC: ANHLAB 16:20
PROVIDERS: PCP Internal Medicine; Visit Provider Internal Medicine
DX: D62 Acute posthemorrhagic anemia (principal); Z79.899 Other long term (current) drug therapy
CPT/HCPCS: 36415; 80048; 85025

== ENCOUNTER 2023-04-04 14:36 | Outpatient (CLI) | payer MEDICARE, SELFPAY ==
--- NOTE | ~2023-04-04 | CT_ITS ---
CT Scan of the Chest without Contrast: Clinical Indication: Nonspecific abnormal finding of lung field, former smoker Technique: Contiguous sections were acquired throughout the chest without intravenous contrast. Dose reduction technique was used on this scan by utilizing automated exposure control and iterative recon struction technique. The dose-length product (DLP) was 342.36 mGy-cm. COMPARISON: 02/03/2023 Findings: There is no evidence of any significant mediastinal, hilar or axillary lymphadenopathy. There are ath erosclerotic calcifications of the aorta and coronary arteries. There is no evidence of pleural or pericardial effusion. There is probable minimal chronic bibasilar interstitial change. There is emphysematous change, most prominent in the left upper lobe. Images through the upper abdomen reveal cholelithiasis. Impression: Probable minimal bibasilar chronic interstitial change. Emphysema, most prominent left upper lobe. Cholelithiasis. Reviewed, dictated and finalized at [facility]. 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 Emphysema, most prominent left upper lobe. Cholelithiasis.
== END 2023-04-04 14:37 | disposition home or self-care (01) ==
LOC: ANHIMG 14:37
PROVIDERS: PCP Internal Medicine; Visit Provider Internal Medicine
DX: J43.9 Emphysema, unspecified (principal); K80.20 Calculus of gallbladder without cholecystitis without obstruction; R91.8 Other nonspecific abnormal finding of lung field
CPT/HCPCS: 71250

== ENCOUNTER 2023-05-23 12:06 | Outpatient (CLI) | payer MEDICARE, SELFPAY ==
[2023-05-23 12:59] LABS: Basophils Percent Auto 0.3 % (0.2-1.2); Eosinophils Absolute Auto 0.5 K/mm3 (0-0.3); Eosinophils Percent Auto 6.1 % (0-4.4); Hematocrit 45.7 % (42.0-52.0); Immature Granulocyte Absolute 0.03 K/mm3 (0.00-0.031); Immature Granulocyte Percent A 0.4 % (0-0.5); Lymphocytes Absolute Auto 2.82 K/mm3 (0.9-3.2); Lymphocytes Percent Auto 37.7 % (18.3-44.2); Mean Corpuscular HGB Conc 32.8 g/dl (32-36); Mean Corpuscular Hemoglobin 31.4 pg (26-34); Mean Corpuscular Volume 95.8 fl (80-100); Mean Platelet Volume 11.3 fl (7.4-10.4); Monocytes Absolute Auto 0.7 K/mm3 (0.1-0.6); Monocytes Percent Auto 8.7 % (2.6-8.5); Neutrophils Absolute Auto 3.5 K/mm3 (1.3-6.7); Neutrophils Percent Auto 46.8 % (45.5-73.1); Platelet Count Result 175 k/mm3 (150-375); Red Blood Count 4.77 M/mm3 (4.6-6.20); Red Cell Distribution Width 14.3 % (11.5-14.5); White Blood Count 7.5 K/mm3 (4.5-10.0)
[2023-05-23 13:05] LABS: Alanine Aminotransferase 24 U/L (6-50); Albumin Level 4.3 g/dL (3.5-5.1); Alkaline Phosphatase 60 U/L (38-126); Anion Gap 8 mmol/L (8-16); Aspartate Amino Transferase 26 U/L (17-59); Bilirubin,Total 0.7 mg/dL (0.2-1.3); Blood Urea Nitrogen 18 mg/dL (9-20); Calcium 9.4 mg/dL (8.4-10.2); Carbon Dioxide 29 mmol/L (22-30); Chloride 103 mmol/L (98-107); Cholesterol 176 mg/dL (0-200); Estimated Glomerular Filt Rate > 60; Glucose 156 mg/dL (65-110); HDL Direct 57 mg/dL; Potassium 3.5 mmol/L (3.4-5.0); Sodium 140 mmol/L (137-145); Triglycerides 144 mg/dL (<150)
[2023-05-23 13:16] LABS: LDL Cholesterol Direct 100 mg/dL
[2023-05-23 13:18] LABS: Hemoglobin A1C 5.9 % (<5.7)
[2023-05-23 13:27] LABS: Free T4 Free Thyroxine 0.83 ng/mL (0.78-2.19)
== END 2023-05-23 12:07 | disposition home or self-care (01) ==
PROVIDERS: PCP Internal Medicine; Visit Provider Internal Medicine
DX: E78.2 Mixed hyperlipidemia (principal); I10 Essential (primary) hypertension; R73.09 Other abnormal glucose; Z79.899 Other long term (current) drug therapy; Z13.29 Encounter for screening for other suspected endocrine disorder
CPT/HCPCS: 36415; 80053; 80061; 83036; 84439; 84443; 85025

== ENCOUNTER 2023-09-29 13:57 | Outpatient (CLI) | payer MEDICARE, SELFPAY ==
[2023-09-29 14:51] LABS: Alanine Aminotransferase 20 U/L (6-50); Albumin Level 4.4 g/dL (3.5-5.1); Alkaline Phosphatase 49 U/L (38-126); Anion Gap 9 mmol/L (4-12); Aspartate Amino Transferase 22 U/L (17-59); Bilirubin,Total 0.5 mg/dL (0.2-1.3); Blood Urea Nitrogen 12 mg/dL (9-20); Calcium 9.7 mg/dL (8.4-10.2); Carbon Dioxide 28 mmol/L (22-30); Chloride 102 mmol/L (98-107); Cholesterol 157 mg/dL (0-200); Estimated Glomerular Filt Rate > 60; Glucose 102 mg/dL (65-110); HDL Direct 54 mg/dL; Potassium 3.9 mmol/L (3.4-5.0); Sodium 139 mmol/L (137-145); Triglycerides 150 mg/dL (<150)
[2023-09-29 14:54] LABS: Hemoglobin A1C 5.8 % (<5.7)
[2023-09-29 15:02] LABS: LDL Cholesterol Direct 78 mg/dL
== END 2023-09-29 13:58 | disposition home or self-care (01) ==
LOC: ANHLAB 14:00
PROVIDERS: PCP Internal Medicine; Visit Provider Internal Medicine
DX: E78.2 Mixed hyperlipidemia (principal); E55.9 Vitamin D deficiency, unspecified; R73.03 Prediabetes; I10 Essential (primary) hypertension
CPT/HCPCS: 36415; 80053; 80061; 82306; 83036

== ENCOUNTER 2024-02-05 10:41 | Outpatient (CLI) | payer MEDICARE, SELFPAY ==
[2024-02-05 11:28] LABS: Alanine Aminotransferase 21 U/L (6-50); Albumin Level 4.5 g/dL (3.5-5.1); Alkaline Phosphatase 59 U/L (38-126); Anion Gap 4 mmol/L (4-12); Aspartate Amino Transferase 22 U/L (17-59); Bilirubin,Total 0.7 mg/dL (0.2-1.3); Blood Urea Nitrogen 12 mg/dL (9-20); Calcium 9.6 mg/dL (8.4-10.2); Carbon Dioxide 31 mmol/L (22-30); Chloride 107 mmol/L (98-107); Cholesterol 180 mg/dL (0-200); Estimated Glomerular Filt Rate > 60; Glucose 97 mg/dL (65-110); HDL Direct 68 mg/dL; Potassium 4.4 mmol/L (3.4-5.0); Sodium 142 mmol/L (137-145); Triglycerides 197 mg/dL (<150)
[2024-02-05 11:34] LABS: Add Urine Microscopic? YES; Appearance Urine Clear (Clear); Bacteria Urine None Seen /hpf; Bilirubin Urine Negative (Negative); Blood Urine Negative (Negative); Calcium Oxalate Crystals Urine Present /hpf; Color Urine Dark Yellow (Yellow); Glucose Urine UA Negative (Negative); Hyaline Casts Urine Present /lpf; Ketones Urine Trace mg/dL (Negative); Leukocyte Esterase Ur 2+ LEU/UL (Negative); Need Manual Microscopic Reviewed; Nitrate Urine Positive (Negative); Protein Urine Negative (Negative); RBC Urine 0-2 /hpf (0-2); Specific Grav Ur 1.016 (1.001-1.035); Squamous Epithelial Cell Urine Occasional /hpf (Few); WBC Urine 21-50 /hpf (0-3)
[2024-02-05 11:40] LABS: LDL Cholesterol Direct 71 mg/dL
[2024-02-05 11:54] LABS: Hemoglobin A1C 5.6 % (<5.7)
[2024-02-05 12:06] LABS: Free T4 Free Thyroxine 0.93 ng/mL (0.78-2.19)
[2024-02-05 12:40] LABS: Folic Acid > 20.0 ng/mL (2.76->20); Vitamin B12 > 1000.0 pg/mL (239-931)
== END 2024-02-05 10:42 | disposition home or self-care (01) ==
PROVIDERS: PCP Internal Medicine; Visit Provider Internal Medicine
DX: E78.5 Hyperlipidemia, unspecified (principal); I10 Essential (primary) hypertension; E55.9 Vitamin D deficiency, unspecified; R73.03 Prediabetes; Z79.899 Other long term (current) drug therapy
CPT/HCPCS: 36415; 80053; 80061; 81001; 82607; 82746; 83036; 84439; 84443; 87086

== ENCOUNTER 2024-02-15 01:28 | Day surgery (SDC) | payer MEDICARE, SELFPAY ==
[2024-02-05 13:02] VITALS: BMI 29.2
[2024-02-15 07:42] VITALS: BP 130/79; PULSE 91; RESP 18; TEMP 37; O2SAT 97
[2024-02-15] MEDS: LACTATED RINGERS 1,000 ML 150 ML IV CONT (07:52)
--- NOTE | 2024-02-15 08:09 | P.PNAN_ITS ---
Anes - Initial Pre Proc Eval Procedure: Operation Date: 02/15/24 09:00 Proposed Procedures p Screening Colonoscopy - Juanjose Pozo MD Date/Time: 02/15/24 08:09 Surgeon: Juanjose Pozo MD Pre Op Diagnosis: personal hx colon polyps Patient Data Age: 78 Gender: M Height: 1.8 m Weight: 95.5 kg Last Vital Signs Temp 98.6 F 02/15/24 07:42 Pulse 91 02/15/24 07:42 Resp 18 02/15/24 07:42 BP 130/79 02/15/24 07:42 Pulse Ox 97 02/15/24 07:42 O2 Del Method Room Air 02/15/24 07:42 Allergies Allergy/AdvReac Type Severity Reaction Status Date / Time No Known Allergies Allergy Verified 02/05/24 12:58 Home Medications ?Medication ?Instructions ?Recorded ?Confirmed ?Type multivitamin 1 cap PO DAILY #90 caps 02/04/19 02/15/24 Rx cyanocobalamin (vitamin B-12) 1,000 mcg PO DAILY 02/08/23 02/15/24 History 1,000 mcg tablet folic acid 1 mg tablet 1 mg PO DAILY 02/08/23 02/15/24 History omega-3 fatty acids 1,000 mg 3,000 mg PO DAILY 02/08/23 02/15/24 History capsule acetaminophen 500 mg tablet 1,000 mg (2 x 500 mg) PO Q6H #90 02/16/23 02/15/24 Rx tabs tamsulosin 0.4 mg capsule 0.4 mg PO HS #30 caps 02/16/23 02/15/24 Rx olmesartan 5 mg tablet 10 mg (2 x 5 mg) PO DAILY #90 tabs 12/11/23 02/15/24 Rx rosuvastatin 20 mg tablet See Rx Instructions .Route 12/18/23 02/15/24 Rx .COMPLEX #90 tabs Aspir-81 81 mg PO DAILY 02/05/24 02/15/24 History aspirin 81 mg chewable tablet 1 tablet PO DAILY 02/05/24 02/15/24 History ciprofloxacin HCl 500 mg tablet 500 mg PO Q12H #20 tabs 02/05/24 02/15/24 Rx peg 3350-electrolytes 236 240 ml PO Q15M #4,000 mL 02/07/24 Rx gram-22.74 gram-6.74 gram-5.86 gram solution (Golytely) Patient hx anesthesia problems: none Family hx anesthesia problems: none Results Review: All pre-operative results and documents have been reviewed as part of the pre- operative evaluation. [facility] Past Medical History Medical History Abnormal finding of blood chemistry, unspecified Abnormal tandem gait test Actinic keratosis Aortic stenosis BMI 30.0-30.9,adult BMI 31.0-31.9,adult BMI 32.0-32.9,adult Carotid bruit Change in mole Chest pain Chronic seasonal allergic rhinitis Closed fracture of right ankle Colon cancer screening Elevated glucose Elevated homocysteine Elevated PSA Embolism of splenic artery Encounter for Medicare annual wellness exam Encounter for routine adult health examination with abnormal findings Encounter for routine adult health examination without abnormal findings Fracture of shaft of fibula (11/03/17) Fuchs' corneal dystrophy Gait disorder Hearing loss History of CVA in adulthood HTN (hypertension), benign Hx of nicotine dependence Hyperlipidemia Hypersomnia Hypokalemia Impacted cerumen of both ears Left-sided weakness Lung nodules Murmur Occipital cerebral infarction 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 Orthostatic hypotension Other specified abnormal findings of blood chemistry Pedal edema Peripheral neuropathy Pre-diabetes Skin lesion of face Symptoms of cerebrovascular accident (CVA) UTI (urinary tract infection) Vascular disease Vitamin D deficiency Family History Family History Father Hypertension Mother Hypertension Social History Social History Smoking status: Former smoker Tobacco type: cigarettes Smokeless tobacco user: other Smoking end date: 03/06/99 Additional smoking assessment comments: CURRENTLY USES NICOTINE GUM Alcohol intake: current Drinks per week: 7 Substance use: current Substance use type: does not use Lack of Transportation: No Lack of Food: Never True Current Housing: I Have Housing Concerned About Future Housing: No Difficulty Paying Gas/Electric Bills: No Difficulty Paying for Meds: No Currently Unemployed: No Education: Master's Degree or Higher Difficulty w/ Childcare or Family Care: No Living arrangements: with family Occupation/Education: retired Gender identity (if verbalized by the patient): Male Spiritual care concerns: No Anes - Eval Final PreProcedure Day of Procedure 02/15/24 08:09 Patient weight: normal Heart: regular rate and rhythm Lungs: clear to auscultation Airway: Mallampati scale class II Neurological: alert and oriented Last oral intake: >/= 8 hours ASA classification: III Emergent: no Anesthetic plan: proceed Anesthesia type and monitoring: general GIVS and standard monitoring Results Review: All pre-operative results and documents have been reviewed as part of the pre- operative evaluation. Informed Consent: The patient's anesthetic plan and its attendant risks and benefits were discussed with the patient/family/POA. Questions were solicited and answers provided to the satisfaction of the patient/family/POA.
--- NOTE | 2024-02-15 08:39 | PM.HPGS ---
History of Present Illness History of Present Illness Consent: Risks, benefits, and alternatives have been discussed and questions answered. Patient agrees to proceed with procedure. Chief complaint: personal hx colon polyps Narrative: Ruperto Clements is a 78 year old male with colon polyp 2017 Review of Systems Review of Systems: All systems reviewed & are unremarkable except as noted in HPI and below PMFSH Past Medical History Medical History (Updated 02/15/24 @ 08:40 by Juanjose Pozo MD) Colon polyp Impacted cerumen of both ears Pre-diabetes Embolism of splenic artery UTI (urinary tract infection) BMI 32.0-32.9,adult Encounter for routine adult health examination without abnormal findings Encounter for routine adult health examination with abnormal findings BMI 30.0-30.9,adult Chronic seasonal allergic rhinitis Colon cancer screening Elevated PSA Encounter for Medicare annual wellness exam BMI 31.0-31.9,adult Orthostatic hypotension Closed fracture of right ankle Hypersomnia Fracture of shaft of fibula (11/03/17) Change in mole Carotid bruit Abnormal tandem gait test Peripheral neuropathy Hypokalemia History of CVA in adulthood Skin lesion of face Pedal edema Elevated glucose Other specified abnormal findings of blood chemistry Symptoms of cerebrovascular accident (CVA) Elevated homocysteine Vitamin D deficiency Lung nodules Actinic keratosis Vascular disease Chest pain Abnormal finding of blood chemistry, unspecified Aortic stenosis Occipital cerebral infarction 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 Fuchs' corneal dystrophy Hearing loss Gait disorder Left-sided weakness Murmur Hx of nicotine dependence Hyperlipidemia HTN (hypertension), benign Family History Family History Father Hypertension Mother Hypertension Social History Social History Smoking status: Former smoker Tobacco type: cigarettes Smokeless tobacco user: other Smoking end date: 03/06/99 Additional smoking assessment comments: CURRENTLY USES NICOTINE GUM Alcohol intake: current Drinks per week: 7 Substance use: current Substance use type: does not use Lack of Transportation: No Lack of Food: Never True Current Housing: I Have Housing Concerned About Future Housing: No Difficulty Paying Gas/Electric Bills: No Difficulty Paying for Meds: No Currently Unemployed: No Education: Master's Degree or Higher Difficulty w/ Childcare or Family Care: No Living arrangements: with family Occupation/Education: retired Gender identity (if verbalized by the patient): Male Spiritual care concerns: No Meds Home Medications and Allergies Home Medications ?Medication ?Instructions ?Recorded ?Confirmed ?Type multivitamin 1 cap PO DAILY #90 caps 02/04/19 02/15/24 Rx cyanocobalamin (vitamin B-12) 1,000 mcg PO DAILY 02/08/23 02/15/24 History 1,000 mcg tablet folic acid 1 mg tablet 1 mg PO DAILY 02/08/23 02/15/24 History omega-3 fatty acids 1,000 mg 3,000 mg PO DAILY 02/08/23 02/15/24 History capsule acetaminophen 500 mg tablet 1,000 mg (2 x 500 mg) PO Q6H #90 02/16/23 02/15/24 Rx tabs tamsulosin 0.4 mg capsule 0.4 mg PO HS #30 caps 02/16/23 02/15/24 Rx olmesartan 5 mg tablet 10 mg (2 x 5 mg) PO DAILY #90 tabs 12/11/23 02/15/24 Rx rosuvastatin 20 mg tablet See Rx Instructions .Route 12/18/23 02/15/24 Rx .COMPLEX #90 tabs Aspir-81 81 mg PO DAILY 02/05/24 02/15/24 History aspirin 81 mg chewable tablet 1 tablet PO DAILY 02/05/24 02/15/24 History ciprofloxacin HCl 500 mg tablet 500 mg PO Q12H #20 tabs 02/05/24 02/15/24 Rx peg 3350-electrolytes 236 240 ml PO Q15M #4,000 mL 02/07/24 Rx gram-22.74 gram-6.74 gram-5.86 gram solution (Golytely) Allergies Allergy/AdvReac Type Severity Reaction Status Date / Time No Known Allergies Allergy Verified 02/05/24 12:58 Vital Signs Vital Signs - 24 hr 02/15/24 07:42 Temperature 98.6 F Pulse Rate 91 Respiratory Rate 18 Blood Pressure 130/79 Pulse Oximetry 97 Oxygen Delivery Room Air Exam Const: General: comfortable and no acute distress HENMT: Face/Nose/Sinus: Normal nares present Eyes: General: appearance normal, both eyes and all related structures Neck: Neck: no JVD Resp: Auscultation: clear to auscultation bilaterally Cardio: Rate: regular rate Rhythm: regular rhythm GI: Inspection: non-distended GI Palp: Yes Soft to palpation Skin: General skin exam: normal color Neuro: General: gait normal Speech: normal speech Extrem: General: normal to inspection Psych: Mental Status: mental status grossly normal Assessment and Plan Assessment and plan (1) Colon polyp: Code(s): K63.5 - Polyp of colon Status: Acute Assessment and Plan: colonoscopy
[2024-02-15 08:54] VITALS: BP 88/53; PULSE 71; RESP 20; O2SAT 98
[2024-02-15 09:04] VITALS: BP 96/57; PULSE 68; RESP 18; O2SAT 99
[2024-02-15 09:14] VITALS: BP 122/64; PULSE 60; RESP 18; O2SAT 100
== END 2024-02-15 09:27 | disposition home or self-care (01) ==
PROVIDERS: PCP Internal Medicine; Visit Provider Internal Medicine Gastroenterology
PROC: 0DJD8ZZ Inspection of Lower Intestinal Tract, Via Natural or Artificial Opening Endoscopic (ICD-10-PCS; CPT 45378; principal; 2024-02-15 09:00)
DX: Z12.11 Encounter for screening for malignant neoplasm of colon (principal); D12.2 Benign neoplasm of ascending colon; K57.30 Diverticulosis of large intestine without perforation or abscess without bleeding; K64.8 Other hemorrhoids; Z87.891 Personal history of nicotine dependence
CPT/HCPCS: 45385; 88305; J2003; J2704; J7120

== ENCOUNTER 2024-04-16 09:31 | Outpatient (CLI) | payer MEDICARE, SELFPAY ==
--- NOTE | ~2024-04-16 | CT_ITS ---
CT Scan of the Chest without Contrast: Clinical Indication: Lung cancer screening, nicotine dependence Technique: Contiguous sections were acquired throughout the chest without intravenous contrast. Dose reduction technique was used on this scan by utilizing automated exposure control and iterative recon struction technique. The dose-length product (DLP) was 148.92 mGy-cm. COMPARISON: 04/04/2023 Findings: There is no evidence of any significant mediastinal, hilar or axillary lymphadenopathy. Atherosclerot ic calcifications of the aorta and coronary arteries are present. There is no evidence of pleural or pericardial effusion. Stable 5 mm peripheral left lower lobe pulmonary nodule (axial image 82). There are mild peripheral c hronic interstitial changes in the lungs. Mild emphysema. Images through the upper abdomen reveal small gallstones. 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 Impression: Lung RADS 2: Benign appearance. 12 month follow-up screening CT advised. Reviewed, dictated and finalized at [facility]. NG FELLER Impression: Lung RADS 2: Benign appearance. 12 month follow-up screening CT advised.
--- OUTSIDE RECORDS SUMMARY | 2024-04-16 10:24 | XMS_ITS | Referral Summary ---
Author Organization [facility] Address [address] [place] [address] Care Team Providers Care Crime Scene Photographer Name Role Phone Geraldo Bearden MD Primary Care Provider [phone] Source Comments [facility],non-owned Affiliates and Associated Physician Practices is amultiple site organization consisting of ambulatory clinics and hospital sitesin [place], [place], [place] and [place]. This disclosure is being madepursuant to the Care Everywhere program and may not contain all information available regarding this patient. Last updated 17.[facility] Allergies No known active allergies Medications * Be aware that medications may not be up to date on this document. Alwaysverify current medications with the patient. Medication Sig Dispensed Refills Start Date End Date Status aspirin (ASPIRIN) 81 MG tablet Take 1 (one) tablet by mouth once daily Active Liberty-3 Fatty Acids (FISH OIL) 1200 MG Active multivitamin daily (THERAGRAN) tablet Take 1 tablet by mouth daily with food Active Cyanocobalamin 1000 MCG Take 1,000 mcg by mouth once daily Active tamsulosin (Flomax) 0.4 MG capsule Take 1 (one) capsule by mouth at bedtime 01/27/2023 Active acetaminophen (Tylenol) 500 MG tablet Take 2 (two) tablets by mouth every 6 hours Maximum allowable Acetaminophen amount = 4 Grams (4000 mg) / 24 hours. 02/08/2023 Active rosuvastatin (Crestor) 10 MG tablet Take 1 (one) tablet by mouth once daily 02/08/2023 Active lidocaine (Lidoderm) 5 % patch Apply 2 (two) patches to skin every 24 hours Apply patch to most painful area and remove after 12 hours. May reapply a new patch 12 hours later. 02/08/2023 Active folic acid (Folvite) 1 MG tablet Take 1 (one) tablet by mouth once daily 02/09/2023 Active polyethylene glycol 3350 (Miralax) 17 g packet Take 17 (seventeen) g by mouth once daily 02/09/2023 Active senna-docusate (Senokot-S) 8.6-50 MG tablet Take 1 (one) tablet by mouth 2 times daily 02/08/2023 Active melatonin 3 MG tablet Take 1 (one) tablet by mouth at bedtime 02/08/2023 Active thiamine (Vitamin B-1) 100 MG tablet Take 1 (one) tablet by mouth once daily 02/09/2023 Active oxyCODONE, immediate release, (Roxicodone) 5 MG tabletIndications:A cute Pain Take 1 (one) tablet by mouth every 4 hours as needed Reasons: Acute Pain 02/08/2023 Active Active Problems Problem Noted Date Diagnosed Date Acute pain due to injury 02/05/2023 Hypoxia 02/05/2023 Fracture of multiple ribs of left side 3 Impaired mobility and ADLs 02/05/2023 Acute blood loss anemia 02/05/2023 Laceration of spleen, initial encounter 02/04/20 23 Immunizations Name Administration Dates Next Due HIB-PRP-T 4 DOSE 02/08/2023(Deferred: Patient Re fused) INFLUENZA VACCINE, ADJUVANTE D, QUADR. (FLUAD QUADRIVALENT; 65Y+) (AIIV4) 02/08/2023(Deferred: Patient Refused) INFLUENZA VACCINE, HIGH-DOSE , QUADR. (FLUZONE HIGH-DOSE QUADRIVALENT; 65Y+), 0.7 ML (HD-IIV4) 11/27/2019,12/22/2017 MENINGOCOCCAL CONJUGATE (MCV4P) 02/08/2023(Defer red: Patient Refused) Meningococcal B Recombinant 2 Dose, IM 3(Deferred: Patient Refused) PNEUMOCOCCAL PCV20 CONJ VAC IM 02/08/2023(Deferr ed: Patient Refused) Social History Tobacco Use Types Packs/Day Years Used Date Smoking Tobacco: Never Passive Smoke Exposure: Never Smokeless Tobacco: Never Tobacco Cessation:Counseling Given: Not Answered Alcohol Use Standard Drinks/Week Comments Yes 14 (1 standard drink = 0.6 oz pu re alcohol) AUDIT-C Answer Date Recorded Q1: How often do you have a drink containing alcohol? 4 or more times a week 02/03/2023 Q2: How many drinks containi ng alcohol do you have on a typical day when you are drinking? 1 or 2 3 Q3: How often do you have si x or more drinks on one occasion? Monthly 02/03/2023 Overall Financial Resource Strain (CARDIA) Answe r Date Recorded How hard is it for you to pa y for the very basics like food, housing, medical care, and heating? Not very hard 02/03/2023 [facility] - Occupational Stress Questionnaire Answer Date Recorded Do you feel stress - tense, restless, nervous, or anxious, or unable to sleep at night because your mind is troubled all the time - these days? Not at all 02/03/2023 Hunger Vital Sign Answer Date Recorded Within the past 12 months, y ou worried that your food would run out before you got the money to buy more. Never true 02/05/20 23 Within the past 12 months, t he food you bought just didn't last and you didn't have money to get more. Never true 02/04/2023 PRAPARE - Transportation Answer Date Re corded In the past 12 months, has l ack of transportation kept you from medical appointments or from getting medications? No 03/2022 In the past 12 months, has l ack of transportation kept you from meetings, work, or from getting things needed for daily living? No 02/03/2023 Housing Stability Vital Sign Answer Bienvenido e Recorded In the last 12 months, was t here a time when you were not able to pay the mortgage or rent on time? No 02/03/2023 In the last 12 months, how many places have you lived? 1 02/03/2023 In the last 12 months, was t here a time when you did not have a steady place to sleep or slept in a correction (including now)? No 02/03/2023 Sex and Gender Information Value Date Recorded Sex Assigned at Not on file Gender Identity Not on file Sexual Orientation Not on file Last Filed Vital Signs Vital Sign Reading Time Taken Comments Blood Pressure 144/67 02/08/2023 8:04 AM SCHOOL PHOTOGRAPHER Pulse 71 02/08/2023 8:04 AM SCHOOL PHOTOGRAPHER Temperature 36.6 C (97.9 F) 02/08/2023 8:04 AM SCHOOL PHOTOGRAPHER Respiratory Rate 20 02/07/2023 12:20 PM SCHOOL PHOTOGRAPHER Oxygen Saturation 94% 02/08/2023 8:04 AM SCHOOL PHOTOGRAPHER Inhaled Oxygen Concentration - - Weight 104.3 kg (230 lb) 02/03/2023 6:11 AM SCHOOL PHOTOGRAPHER Height 180.3 cm (5' 11 ) 02/03/2023 6:11 AM SCHOOL PHOTOGRAPHER Body Mass Index 32.08 02/03/2023 6:11 AM SCHOOL PHOTOGRAPHER Functional Status Functional Status Response Date of Assess ment Is person deaf or have serious hearing difficult y? Yes 02/03/2023 Is person blind or have serious difficulty seein g? No 02/03/2023 Does person have serious dif ficulty walking/climbing stairs? No 02/03/2023 Does person have difficulty dressing/bathing? No 02/03/2023 Does person have difficulty doing errands alone? No 02/03/2023 Cognitive Status Response Date of Assessm ent Does person have difficulty concentrating/remembering/making decisions? No 02/03/2023 Plan of Treatment Not on file Medical Devices Implanted Type Area Credentials Specialist Device Identifier Shelf Expiration Date Model / Serial / Lot Plug Ocl 7mm Mvp Gian Vasc [facility] V03 Strl Implanted:Qty: 1 on 02/03/2023 by Santiago Ruelas MD at [facility] Left: Arterial [employer] 06/03/2024 MVP-[id number] / / [id number] Advance Directives * Full Code (Latest Code Status on File) Date Activated Date Inactivated Comments 02/03/2023 7:07 AM 02/08/2023 1:53 PM Care Teams Crime Scene Photographer Relationship Specialty Start Date End Date Geraldo Bearden MD [address] [place] [id number] PCP - General 01/05/10
--- OUTSIDE RECORDS SUMMARY | 2024-04-16 10:24 | XMS_ITS | Patient Health Summary ---
Author Organization [facility] x[facility] Address [address] [place] [address] Care Team Providers Care Stem Frazer Name Role Phone Geraldo Bearden MD Primary Care Provider [phone] Note from [facility],non-owned Affiliates and Associated Physician Practices is amultiple site organization consisting of ambulatory clinics and hospital sitesin [place], [place], [place]. This disclosure is being madepursuant to the Care Everywhere program and may not contain all information available regarding this patient. Last updated 17.[facility] Allergies No known active allergies Medications * Be aware that medications may not be up to date on this document. Alwaysverify current medications with the patient. * aspirin (ASPIRIN) 81 MG tablet Take 1 (one) tablet by mouth once daily * Plato-3 Fatty Acids (FISH OIL) 1200 MG * multivitamin daily (THERAGRAN) tablet Take 1 tablet by mouth daily with food * Cyanocobalamin 1000 MCG Take 1,000 mcg by mouth once daily * tamsulosin (Flomax) 0.4 MG capsule(Started 01/27/2023) Take 1 (one) capsule by mouth at bedtime * acetaminophen (Tylenol) 500 MG tablet(Started 02/08/2023) Take 2 (two) tablets by mouth every 6 hours Maximum allowable Acetaminophen amount = 4 Grams (4000 mg) / 24 hours. * rosuvastatin (Crestor) 10 MG tablet(Started 02/08/2023) Take 1 (one) tablet by mouth once daily * lidocaine (Lidoderm) 5 % patch(Started 02/08/2023) Apply 2 (two) patches to skin every 24 hours Apply patch to most painful area and remove after 12 hours. May reapply a new patch 12 hours later. * folic acid (Folvite) 1 MG tablet(Started 02/09/2023) Take 1 (one) tablet by mouth once daily * polyethylene glycol 3350 (Miralax) 17 g packet(Started 02/09/2023) Take 17 (seventeen) g by mouth once daily * senna-docusate (Senokot-S) 8.6-50 MG tablet(Started 02/08/2023) Take 1 (one) tablet by mouth 2 times daily * melatonin 3 MG tablet(Started 02/08/2023) Take 1 (one) tablet by mouth at bedtime * thiamine (Vitamin B-1) 100 MG tablet(Started 02/09/2023) Take 1 (one) tablet by mouth once daily * oxyCODONE, immediate release, (Roxicodone) 5 MG tablet(Started 02/08/2023) Take 1 (one) tablet by mouth every 4 hours as needed Reasons: Acute Pain Active Problems Problem Noted Date Diagnosed Date Acute pain due to injury 02/05/2023 Hypoxia 02/05/2023 Fracture of multiple ribs of left side 3 Impaired mobility and ADLs 02/05/2023 Acute blood loss anemia 02/05/2023 Laceration of spleen, initial encounter 02/04/20 23 Immunizations * INFLUENZA VACCINE, HIGH-DOSE, QUADR. (FLUZONE HIGH-DOSE QUADRIVALENT; 65Y+), 0.7 ML (HD-IIV4)(Given 11/27/2019, 12/22/2017) Social History Tobacco Use Types Packs/Day Years [...] care, and heating? Not very hard 02/03/2023 [facility] [place] [facility] Occupat ional Health - Occupational Stress [...] place to sleep or slept in a custodial (including now)? No 02/03/2023 Sex and Gender Information Value Date Recorded Sex Assigned at Not on file Gender Identity Not on file Sexual Orientation Not on file Last Filed Vital Signs Vital Sign Reading Time Taken Comments Blood Pressure 144/67 02/08/2023 8:04 AM RN [facility] Pulse 71 02/08/2023 8:04 AM RN [facility] Temperature 36.6 C (97.9 F) 02/08/2023 8:04 AM RN [facility] Respiratory Rate 20 02/07/2023 12:20 PM RN [facility]ATAL ICU Oxygen Saturation 94% 02/08/2023 8:04 AM RN [facility]AT[facility] ICU Inhaled Oxygen Concentration - - Weight 104.3 kg (230 lb) 02/03/2023 6:11 AM RN [facility] ICU Height 180.3 cm (5' 11 ) 02/03/2023 6:11 AM RN [facility] ICU Body Mass Index 32.08 02/03/2023 6:11 AM RN [facility]ONATAL ICU Medical Devices Implanted Type Area Manager Critical Care Device Identifier Shelf Expiration Date Model / Serial / Lot Plug Ocl 7mm Mvp Gian Vasc [facility] V03 Strl Implanted:Qty: 1 on 02/03/2023 by Santiago Ruelas MD at [facility] Left: Arterial [employer] 06/03/2024 MVP-7Q / / [id number] Procedures * CBC W/O DIFFERENTIAL(Performed 02/07/2023) * CBC W/O DIFFERENTIAL(Performed 02/06/2023) * CT CHEST ABDOMEN PELVIS W CONT(Performed 02/05/2023) Performed for Laceration of spleen, initial encounter * PHOSPHORUS BLOOD(Performed 02/05/2023) * MAGNESIUM BLOOD(Performed 02/05/2023) * CBC W/O DIFFERENTIAL(Performed 02/05/2023) * BASIC METABOLIC PANEL (CALCIUM TOTAL)(Performed 02/05/2023) * CBC W/O DIFFERENTIAL(Performed 02/04/2023) * HEMOGLOBIN A1C(Performed 02/03/2023) * VITAMIN B12(Performed 02/03/2023) * FOLATE(Performed 02/03/2023) * VITAMIN B1(Performed 02/03/2023) * MAGNESIUM BLOOD(Performed 02/03/2023) * PHOSPHORUS BLOOD(Performed 02/03/2023) * CALCIUM IONIZED WHOLE BLOOD(Performed 02/03/2023) * CBC W/O DIFFERENTIAL(Performed 02/03/2023) * BASIC METABOLIC PANEL (CALCIUM TOTAL)(Performed 02/03/2023) * CBC W/O DIFFERENTIAL(Performed 02/03/2023) * TEG 6S PLATELET MAPPING(Performed 02/03/2023) * BLOOD TYPE VERIFICATION(Performed 02/03/2023) * CBC W/O DIFFERENTIAL(Performed 02/03/2023) * PREPARE PLATELET PHERESIS UNIT(S)(Performed 02/03/2023) * IR VISCERAL ANGIO(Performed 02/03/2023) Performed for Laceration of spleen, initial encounter * URINE DRUG SCREEN IMMUNOASSAY(Performed 02/03/2023) * TYPE + SCREEN PANEL(Performed 02/03/2023) * TEG 6S PLATELET MAPPING(Performed 02/03/2023) * TEG 6 GLOBAL HEMOSTASIS W/ LYSIS(Performed 02/03/2023) * PTT SLH(Performed 02/03/2023) * PT-INR SL(Performed 02/03/2023) * CBC W AUTO DIFFERENTIAL(Performed 02/03/2023) * BASIC METABOLIC PANEL (CALCIUM TOTAL)(Performed 02/03/2023) * ALCOHOL ETHYL BLOOD(Performed 02/03/2023) * CT LUMBAR SPINE WO CONTRAST(Performed 02/03/2023) Performed for Fall, initial encounter * CT THORACIC SPINE WO CONTRAST(Performed 02/03/2023) Performed for Fall, initial encounter * CT CHEST ABDOMEN PELVIS W CONT(Performed 02/03/2023) Performed for Fall, initial encounter * CT CERVICAL SPINE WO CONTRAST(Performed 02/03/2023) Performed for Fall, initial encounter * CT HEAD WO CONTRAST(Performed 02/03/2023) Performed for Fall, initial encounter * XR PELVIS 1 OR 2VW(Performed 02/03/2023) Performed for Fall, initial encounter * XR CHEST 1VW PORTABLE(Performed 02/03/2023) Performed for Fall, initial encounter * INFLUENZA A+B - POINT OF CARE (AMB)(Performed 03/02/2017) Performed for Influenza A Results * (ABNORMAL) CBC W/O DIFFERENTIAL (02/07/2023 1:55 AM RN [facility] ICU) Only the most recent of7 resultswithin the time period is included. WBC 9.4 3.5 - 10.5 10 3/uL 02/07/2023 3:32 AM [facility] RBC 3.25(L) 4.30 - 5.70 10 6/uL 02/07/2023 3:32 AM [facility] Hemoglobin 10.4(L) 12.0 - 17.6 g/dL 02/07/2023 3:32 AM [facility] Hematocrit 30.9(L) 35.2 - 51.7 % 02/07/2023 3:32 AM [facility] MCV 95.1 80.7 - 98.3 fL 02/07/2023 3:32 AM [facility] MCH 32.0 26.7 - 34.0 pg 02/07/2023 3:32 AM [facility] MCHC 33.7 30.8 - 35.9 g/dL 02/07/2023 3:32 AM [facility] RDW-SD 49.1 36.0 - 50.0 fL 02/07/2023 3:32 AM [facility] RDW-CV 14.0 11.2 - 14.8 % 02/07/2023 3:32 AM [facility] Platelet Count 146(L) 150 - 400 10 3/uL 02/07/2023 3:32 AM [facility] MPV 11.5 9.4 - 12.9 fL 02/07/2023 3:32 AM [facility] Immature Platelet Fraction 7.8(H) 1.1 - 6.2 % 02/07/2023 3:32 AM [facility] nRBC Absolute 0.00 0 10 3/uL 02/07/2023 3:32 AM [facility] nRBC Auto 0.0 0 /100 WBC 02/07/2023 3:32 AM [facility] Blood BLOOD SPECIMEN / Unknown Lab Venipuncture / Unknown 02/07/2023 1:55 AM RN [facility] 02/07/2023 3:25 AM RN [facility] ICU Jia Moreira LEAD ELECTRICAL CONTROLS ENGINEER-LETTERSET PRESS SET UP OPERATOR LAB - HEMATOLOGY ORDERABLES [facility] [address] [place] [id number], [facility] [phone] * CT CHEST ABDOMEN PELVIS W CONT (02/05/2023 3:55 PM RN [facility] ICU) Only the most recent of2 resultswithin the time period is included. Anatomical Region Laterality Modality Chest, Abdomen, Pelvis Computed Tomography 02/05/2023 4:30 PM RN [facility] Impressions 02/05/2023 4:39 PM RN [facility] ICU IMPRESSION: 1. Again seen is a splenic laceration with perisplenic hematoma, similar to prior. Interval development of moderate hemoperitoneum in the pelvis, likely due to hemorrhage from the spleen. 2. Increased size of small bilateral pleural effusions with lower lung atelectasis. 3. Multiple rib fractures again seen. 4. Intestinal malrotation. 5. Liver surface nodularity could represent hepatic parenchyma disease. > Interpreting Provider: Lalito Thomas MD on 02/05/2023 4:39 PM Narrative 02/05/2023 4:39 PM RN [facility] ICU PROCEDURE: CT CHEST ABDOMEN PELVIS W CONT DATE/TIME OF EXAM: 02/05/2023 4:13 PM CLINICAL INFORMATION: None relevant/not provided if blank. Indication: S36.039A: Laceration of spleen, initial encounter Additional History: COMPARISON: 02/03/2023. TECHNIQUE: CT of the chest, abdomen and pelvis was performed following intravenous contrast utilizing standard protocol. CT dose reduction technique was used, including Automated Exposure Control. CONTRAST: IOPAMIDOL 76 % IV SOLN:100 mL FINDINGS: Chest: Interval increased size of moderate bilateral pleural effusion with lung atelectasis. There is no pneumothorax. There is a focal area of lucency in the left upper lobe seen on series 4 image 39, similar to prior could represent emphysema or congenital hyperinflation. Heart is normal in size. There is no pericardial effusion. Thoracic aorta is normal in caliber with atherosclerotic calcifications. There are coronary artery calcifications and calcifications of the great vessels in the thorax. There is no chest lymphadenopathy. Abdomen and pelvis: The liver is normal in size. There is no focal there is mild liver surface nodularity that could represent hepatic parenchymal disease. There is vicarious excretion of contrast into the gallbladder. Again seen is a splenic laceration with perisplenic hematoma, similar to the prior exam. There are also calcified splenic granulomas. Both adrenal glands are normal. The pancreas is normal. Both kidneys are normal in size with no hydronephrosis with symmetric enhancement. There is a cyst in the upper pole of the right kidney and nonobstructive left kidney stones. The urinary bladder is normal. Interval development of moderate volume hemoperitoneum in the pelvis, likely due to the splenic laceration. The small and large bowel are normal in caliber with no bowel obstruction. There is intestinal malrotation. There is no free intraperitoneal gas. Abdominal aorta is normal in caliber with atherosclerotic calcifications. Portal vein is patent. Multiple rib fractures again seen.. Procedure Note Lalito Thomas MD - 02/05/2023 PROCEDURE: CT CHEST ABDOMEN PELVIS W CONT DATE/TIME OF EXAM: 02/05/2023 4:13 PM CLINICAL INFORMATION: None relevant/not provided if blank. Indication: S36.039A: Laceration of spleen, initial encounter Additional History: COMPARISON: 02/03/2023. TECHNIQUE: CT of the chest, abdomen and pelvis was performed following intravenous contrast utilizing standard protocol. CT dose reduction technique was used, including Automated ExposureControl. CONTRAST: IOPAMIDOL 76 % IV SOLN:100 mL FINDINGS: Chest: Interval increased size of moderate bilateral pleural effusion with lung atelectasis. There is no pneumothorax. There is a focal area of lucency in the left upper lobe seen on series 4 image 39, similar to prior could represent emphysema or congenital hyperinflation. Heart is normal in size. There is no pericardial effusion. Thoracicaorta is normal in caliber with atherosclerotic calcifications. There are coronary artery calcifications and calcifications of the great vesselsin the thorax. There is no chest lymphadenopathy. Abdomen and pelvis: The liver is normal in size. There is no focal there is mild liversurface nodularity that could represent hepatic parenchymal disease. There is vicarious excretion of contrast into the gallbladder. Again seen is a splenic laceration with perisplenic hematoma, similar to the prior exam. There are also calcified splenic granulomas. Both adrenal glands are normal. The pancreas is normal. Both kidneys are normal in size with no hydronephrosis with symmetric enhancement. There is a cyst in the upper pole of the right kidney and nonobstructive left kidney stones. The urinary bladder is normal. Interval development of moderate volume hemoperitoneum in the pelvis, likely due to the splenic laceration. The small and large bowel are normal in caliber with no bowelobstruction. There is intestinal malrotation. There is no free intraperitoneal gas. Abdominal aorta is normal in caliber with atheroscleroticcalcifications. Portal vein is patent. Multiple rib fractures again seen.. IMPRESSION: 1. Again seen is a splenic laceration with perisplenic hematoma, similarto prior. Interval development of moderate hemoperitoneum in the pelvis, likely due to hemorrhage from the spleen. 2. Increased size of small bilateral pleural effusions with lower lung atelectasis. 3. Multiple rib fractures again seen. 4. Intestinal malrotation. 5. Liver surface nodularity could represent hepatic parenchyma disease. > Interpreting Provider: Lalito Thomas MD on 02/05/2023 4:39 PM Jia Moreira LEAD ELECTRICAL CONTROLS ENGINEER-LETTERSET PRESS SET UP OPERATOR CT ORDERABLES * (ABNORMAL) BASIC METABOLIC PANEL (CALCIUM TOTAL) (02/05/2023 3:02 AM RN [facility]ONAT[facility] ICU) Only the most recent of3 resultswithin the time period is included. BUN 8 7 - 26 mg/dL 02/05/2023 4:47 AM [facility] Creatinine 0.68(L) 0.71 - 1.16 mg/dL 02/05/2023 4:47 AM [facility] Sodium 139 136 - 145 mmol/L 02/05/2023 4:47 AM [facility] Potassium 3.9 3.5 - 4.5 mmol/L 02/05/2023 4:47 AM [facility] Chloride 107 98 - 107 mmol/L 02/05/2023 4:47 AM [facility] CO2 24 22 - 29 mmol/L 02/05/2023 4:47 AM [facility] Glucose 85 70 - 115 mg/dL 02/05/2023 4:47 AM [facility] Calcium 8.7 8.4 - 10.2 mg/dL 02/05/2023 4:47 AM [facility] Anion Gap 8 6 - 16 02/05/2023 4:47 AM [facility] BUN/Creatinine Ratio 12 7 - 23 02/05/2023 4:47 AM [facility] Osmolality Calculated 286 275 - 295 mOsm/kg 02/05/2023 4:47 AM [facility] eGFR by CKD-EPI >90 >=90 mL/min/1.7 3 m2 02/05/2023 4:47 AM [facility] Blood BLOOD SPECIMEN / Unknown Lab Venipuncture / Unknown 02/05/2023 3:02 AM RN [facility] ICU 02/05/2023 4:11 AM [facility] Jia Moreira LEAD ELECTRICAL CONTROLS ENGINEER-LETTERSET PRESS SET UP OPERATOR LAB - CHEMISTRY O RDERABLES [address] [address], [facility] [phone] * PHOSPHORUS BLOOD (02/05/2023 3:02 AM RN [facility]ONATAL ICU) Only the most recent of2 resultswithin the time period is included. Phosphorus 2.8 2.8 - 5.1 mg/dL 02/05/2023 4:47 AM RN NEONATAL ICU [facility] Blood BLOOD SPECIMEN / Unknown Lab Venipuncture / Unknown 02/05/2023 3:02 AM RN [facility] ICU 02/05/2023 4:11 AM RN [facility] ICU Jia Edgar Harish LEAD ELECTRICAL CONTROLS ENGINEER-LETTERSET PRESS SET UP OPERATOR LAB - CHEMISTRY O RDERABLES [address] [address], [facility] [phone] * MAGNESIUM BLOOD (02/05/2023 3:02 AM RN NEONATAL ICU) Only the most recent of2 resultswithin the time period is included. Magnesium 1.7 1.6 - 2.6 mg/dL 02/05/2023 4:47 AM RN NEONATAL ICU [facility] Blood BLOOD SPECIMEN / Unknown Lab Venipuncture / Unknown 02/05/2023 3:02 AM RN [facility] 02/05/2023 4:11 AM RN [facility] ICU Jia Tala Harish LEAD ELECTRICAL CONTROLS ENGINEER-LETTERSET PRESS SET UP OPERATOR LAB - CHEMISTRY O RDERABLES Performing Organization Address [facility]/ZIP Co de Phone Number [address] [address], [place] [phone] * (ABNORMAL) CALCIUM IONIZED WHOLE BLOOD (02/03/2023 11:36 PM RN NEONATAL ICU) Calcium Ionized 1.16 mmol/L 02/03/2023 11:44 PM RN NEONATAL ICU [facility] pH 7.35 7.35 - 7.45 pH 02/03/2023 11:44 PM RN NEONATAL ICU [facility] Ionized Calcium pH Adjusted 1.14(L) 1.19 - 1.34 mmol/L 02/03/2023 11:44 PM RN NEONATAL ICU [facility] Blood BLOOD SPECIMEN / Unknown Venipuncture / Unknown 02/03/2023 11:36 PM RN [facility] ICU 02/03/2023 11:40 PM RN [facility]ONATAL ICU Jeff Schulz PA-C LAB - CHEMISTRY O RDERABLES [address] [place] [address], [facility] [phone] * VITAMIN B1 (02/03/2023 11:36 PM RN NEONATAL ICU) Pathologist [facility] Vitamin B1 Whole Blood 178 70 - 180 nmol/L 02/08/2023 4:30 AM RN NEONATAL ICU [facility] ([facility]) Comment: INTERPRETIVE INFORMATION: Vitamin B1, Whole Blood This assay measures the concentration of thiamine diphosphate (TDP), the primary active form of vitamin B1. Approximately 90 percent of vitamin B1 present in whole blood is TDP. Thiamine and thiamine monophosphate, which comprise the remaining 10 percent, are not measured. This test was developed and its performance characteristics determined by [facility]. It has not been cleared or approved by the US Food and Drug Administration. This test was performed in a CLIA certified laboratory and is intended for clinical purposes. Performed By: [facility] [employer] [address] [place] [address] Blueprint Clerk: Matti Rodriguez MD, PhD CLIA Number: [id number] Blood BLOOD SPECIMEN / Unknown Venipuncture / Unknown 02/03/2023 11:36 PM RN [facility]AT[facility] ICU 02/03/2023 11:41 PM RN NEONATAL ICU Jeff Schulz PA-C LAB - CHEMISTRY O RDERABLES [facility]) [address] [place] [address] * HEMOGLOBIN A1C (02/03/2023 11:36 PM RN NEONATAL ICU) [facility] Hemoglobin A1c 5.4 <=5.6 % 02/04/2023 1:23 PM RN NEONATAL ICU [facility] Estimated Average Glucose 108 mg/dL 02/04/2023 1:23 PM RN NEONATAL ICU [facility] Comment: HbA1c Interpretation: Normal : < 5.7% Pre-diabetes: 5.7-6.4% Diabetes: Equal to or greater than 6.5% Test results diagnostic of diabetes should be repeated for confirmation. Treatment target values recommended by ADA and other clinical organizations should be used to evaluate metabolic control in patients. Reference: [place] [employer], Standards of Care in Diabetes -2020 In patients 70 years and older consider HbA1c target range of 7.0-7.5% (Reference: Fuentes A, et al. MARVINDA. 2012) The Sebia assay for the measurement of HbA1c is a National Glycohemoglobin Standardization Program (NGSP) certified method. Blood BLOOD SPECIMEN / Unknown Venipuncture / Unknown 02/03/2023 11:36 PM RN [facility] ICU 02/03/2023 11:42 PM RN [facility]ONATAL ICU Jeff Schulz PA-C LAB - CHEMISTRY O RDERAJESS Performing Organization Address City/[facility]/ZIP Co de Phone Number [address] [address], [place] [phone] * FOLATE (02/03/2023 11:36 PM RN NEONATAL ICU) Folate 17.5 7.0 - 31.4 ng/mL 02/04/2023 1:19 AM RN NEONATAL ICU [facility] Blood BLOOD SPECIMEN / Unknown Venipuncture / Unknown 02/03/2023 11:36 PM RN [facility]AT[facility] ICU 02/03/2023 11:42 PM RN NEONATAL ICU Jeff Schulz PA-C LAB - CHEMISTRY O RDERABLES Performing Organization Address [facility] Co de Phone Number [address] [address], [place] [phone] * (ABNORMAL) VITAMIN B12 (02/03/2023 11:36 PM RN NEONATAL ICU) Vitamin B12 >2,000(H) 213 - 816 pg/mL 02/04/2023 1:08 AM RN NEONATAL ICU [facility] Blood BLOOD SPECIMEN / Unknown Venipuncture / Unknown 02/03/2023 11:36 PM RN [facility]AT[facility] ICU 02/03/2023 11:42 PM RN NEONATAL ICU Jeff Schulz PA-C LAB - CHEMISTRY O RDERABLES Performing Organization Address City/[facility] Co de Phone Number [address] [address], [place] [phone] * (ABNORMAL) TEG 6S PLATELET MAPPING (02/03/2023 6:33 PM RN NEONATAL ICU) Only the most recent of2 resultswithin the time period is included. TEGPLM (Max Amplitude) [place] 65.6 53.0 - 68.0 mm 02/03/2023 7:54 PM [facility] TEGPLM (Max Amplitude) ACTF 13.8 2.0 - 19.0 mm 02/03/2023 7:54 PM [facility] TEGPLM (Max Amplitude) ADP 47.4 45.0 - 69.0 mm 02/03/2023 7:54 PM [facility] TEGPLM (Max Amplitude) AA 59.1 51.0 - 71.0 mm 02/03/2023 7:54 PM [facility] TEGPLM %Inhibition ADP 35.1(H) 0.0 - 17.0 % 02/03/2023 7:54 PM [facility] TEGPLM %Inhibition AA 12.5(H) 0.0 - 11.0 % 02/03/2023 7:54 PM [facility] TEGPLM %Aggregation ADP 64.9(L) 83.0 - 100.0 % 02/03/2023 7:54 PM [facility] TEGPLM % Aggregation AA 87.5(L) 89.0 - 100.0 % 02/03/2023 7:54 PM [facility] Blood BLOOD SPECIMEN / Unknown Venipuncture / Unknown 02/03/2023 6:33 PM RN [facility] ICU 02/03/2023 6:44 PM RN NEONATAL ICU Jeff Schulz PA-C LAB - HEMATOLOGY ORDERABLES [address] [address], [facility] [phone] * BLOOD TYPE VERIFICATION (02/03/2023 6:30 PM RN NEONATAL ICU) ABO Rh A POS 02/03/2023 6:5 8 PM RN NEONATAL ICU [facility] BLOOD BANK LAB Blood Bank BLOOD SPECIMEN / Unknown 02/03/2023 6:30 PM RN NEONATAL ICU 02/03/2023 6:38 PM RN NEONATAL ICU Clarke Hinojosa MD LAB - BLOOD BANK ORD ERABLES Performing Organization Address City/[facility]/ZIP Co de Phone Number [facility] BLOOD BANK LAB [address] [place] [address], [facility] [phone] * TRANSFUSE PLATELET PHERESIS UNIT(S) (02/03/2023 1:56 PM RN NEONATAL ICU) Ayana Love DO NURSING - BLOOD PRO D TRANSFUSION * PREPARE PLATELET PHERESIS UNIT(S), 1 Units (02/03/2023 1:10 PM RN NEONATAL ICU) Unit Description LR PLT Phere B7 [facility] BLOOD BANK LAB Unit ABO A [facility] BLOOD [facility]ANK LAB Unit Rh POS [facility] BLOOD BANK LAB Product Number P28 [facility] B LOOD BANK LAB Unit Donor # [id number] [facility] BLOOD BANK LAB Unit Status transfused [facility] BLO OD BANK LAB Product Code [id number] [facility] BLO OD BANK LAB Blood Type Barcode 6200 [facility] BLOOD BANK LAB Expiration Date S BLOOD BANK LAB Blood Bank BLOOD SPECIMEN / Unknown 02/03/2023 7:00 AM RN NEONATAL ICU Ayana Love DO LAB - BLOOD BANK OR DERABLES Performing Organization Address [facility] Co de Phone Number [facility] BLOOD BANK LAB [address] [place] [address], [facility] [phone] * IR VISCERAL ANGIO (02/03/2023 8:40 AM RN NEONATAL ICU) Anatomical Region Laterality Modality Abdomen X-Ray Angiograph y 02/25/2023 1:28 PM RN NEONATAL ICU Impressions 02/25/2023 1:46 PM RN NEONATAL ICU IMPRESSION: Successful endovascular plug embolization of the mid splenic artery to treat active contrast extravasation status post traumatic fracture of the spleen. I, Dr. Ruelas, was present and performed/supervised the entire procedure. Moderate sedation on this adult patient was ordered by me, administered intravenously in my presence, and monitored by the procedure nurse as an independent trained observer who was present throughout the procedure. The following parameters were monitored: oxygen saturation, heart rate, blood pressure, and response to care. Intra-service sedation start time was 0743 hours and end time was 0835 hours during which I was present. For details on pre-moderate sedation and post-moderate sedation patient evaluation, please review the evaluation forms in [facility]. For details on monitored clinical parameters during the intra-service sedation time, please review the procedure nurse documentation in [facility]. > Interpreting Provider: Santiago Ruelas MD on 02/25/2023 1:46 PM Narrative 02/25/2023 1:46 PM RN NEONATAL ICU Procedure: Splenic artery angiogram. Splenic artery embolization. Preprocedure diagnosis: Splenic laceration, trauma. Postprocedure diagnosis: Same. Attending: Santiago Ruelas M.D. Resident: Almaz Anesthesia: Local anesthesia ~ 10 mL of 1% lidocaine Intravenous conscious sedation: Versed 1 mg and Fentanyl 50 mcg Other medications: None. Consent: The procedure, risks, and possible complications were explained to the patient in detail and informed consent was obtained. Procedure/findings: Patient was brought to interventional radiology suite and placed on table supine. [place] time out protocol performed. The right groin region was prepped and draped in the usual aseptic fashion. After infiltration of the skin soft tissues with 1% lidocaine, the right common femoral artery was punctured using a 21-gauge needle under direct ultrasound visualization. Next, using standard Seldinger technique a 5 Algerian vascular sheath was inserted. Working through sheath and over a guidewire a 5 Algerian angiographic catheter was advanced and utilized to selectively catheterize the celiac artery DSA images demonstrate normal conventional 3 vessel anatomy. Superselective catheterization of the splenic artery was performed. DSA images obtained demonstrate a lacerated spleen with the positive contrast extravasation. Next, the indwelling 5 Algerian vascular sheath was removed and exchanged for a 6 Algerian [facility] vascular sheath the tip of which was placed in the proximal splenic artery over a guidewire. This point a endovascular 5-7 mm MVP plug device was advanced and successfully deployed in the mid segment of the splenic artery, distal to the origin of the dorsal pancreatic artery, without difficulty. Follow-up DSA imaging demonstrates persistent flow through the clot. A very small amount of Gelfoam slurry was injected to achieve complete stasis. Follow-up DSA imaging demonstrates complete stasis and patency of the dorsal pancreatic artery postembolization. Procedure was ended at this point. Lines and catheters removed. Puncture site successfully closed using a 6 Algerian Angio-Seal device. Procedure was ended at this point. Patient tolerated the procedure well. Complications: None. EBL: None. DISPOSITION: Back to his room in good condition. Procedure Note Santiago Ruelas MD - 02/25/2023 Procedure: Splenic artery angiogram. Splenic artery embolization. Preprocedure diagnosis: Splenic laceration, trauma. Postprocedure diagnosis: Same. Attending: Santiago Ruelas M.D. Resident: None Anesthesia: Local anesthesia ~ 10 mL of 1% lidocaine Intravenous conscious sedation: Versed 1 mg and Fentanyl 50 mcg Other medications: None. Consent: The procedure, risks, and possible complications were explainedto the patient in detail and informed consent was obtained. Procedure/findings: Patient was brought to interventional radiologysuite and placed on table supine. [place] time out protocol performed. The right groin region was prepped and draped in the usual asepticfashion. After infiltration of the skin soft tissues with 1% lidocaine, the right common femoral artery was punctured using a 21-gauge needle under direct ultrasound visualization. Next, using standard Seldinger technique a 5 Algerian vascular sheath was inserted. Working through sheath and over a guidewire a 5 Algerian angiographic catheter was advanced and utilized to selectively catheterize the celiac artery DSA images demonstrate normal conventional 3 vessel anatomy. Superselective catheterization of the splenic artery was performed. DSA images obtained demonstrate alacerated spleen with the positive contrast extravasation. Next, the indwelling 5 Algerian vascular sheath was removed and exchanged for a 6 Algerian [facility] vascular sheath the tip of which was placed in the proximal splenicartery over a guidewire. This point a endovascular 5-7 mm MVP plug device was advanced and successfully deployed in the mid segment of the splenic artery, distal to the origin of the dorsal pancreatic artery, without difficulty. Follow-up DSA imaging demonstrates persistent flow throughthe clot. A very small amount of Gelfoam slurry was injected to achieve complete stasis. Follow-up DSA imaging demonstrates complete stasis and patency of the dorsal pancreatic artery postembolization. Procedure was ended at this point. Lines and catheters removed. Puncture site successfully closed using a 6 Algerian Angio-Seal device. Procedure was ended at this point. Patient tolerated the procedure well. Complications: None. EBL: None. DISPOSITION: Back to his room in good condition. IMPRESSION: Successful endovascular plug embolization of the mid splenic artery to treat active contrast extravasation status post traumatic fracture of the spleen. I, Dr. Ruelas, was present and performed/supervised the entire procedure. Moderate sedation on this adult patient was ordered by me, administered intravenously in my presence, and monitored by theprocedure nurse as an independent trained observer who was present throughout the procedure. The following parameters were monitored: oxygen saturation, heart rate, blood pressure, and response to care. Intra-service sedation start time was 0743 hours and end time was 0835 hours during which I was present. For details on pre-moderate sedation and post-moderate sedation patient evaluation, please review the evaluation forms in [facility]. Fordetails on monitored clinical parameters during the intra-service sedation time, please review the procedure nurse documentation in [facility]. > Interpreting Provider: Santiago Ruelas MD on 02/25/2023 1:46PM Santiago Ruelas MD IR ORDERABL ES * (ABNORMAL) URINE DRUG SCREEN IMMUNOASSAY (02/03/2023 7:05 AM [facility]) Amphetamines Screen Urine Negative Negative : < 1000 ng/mL 02/03/2023 7:35 AM [facility] Barbiturates Screen Urine Negative Negative : < 200 ng/mL 02/03/2023 7:35 AM [facility] Benzodiazepine Screen Urine Negative Negative : < 200 ng/mL 02/03/2023 7:35 AM [facility] Opiates Urine Negative Negative : < 300 ng/mL 02/03/2023 7:35 AM [facility] Cocaine Metabolites Urine Negative Negative : < 300 ng/mL 02/03/2023 7:35 AM [facility] Phencyclidine Screen Urine Negative Negative : < 25 ng/ml 02/03/2023 7:35 AM [facility] Cannabinoids Screen Urine Negative Negative : <50 ng/mL 02/03/2023 7:35 AM [facility] Methadone Screen Urine Negative Negative : < 300 ng/mL 02/03/2023 7:35 AM [facility] Fentanyl Screen Urine Positive(A) Negative : <1.5 ng/mL 02/03/2023 7:35 AM [facility] Comment:Positive urine fenta nyl screening results should be confirmed by another generally accepted non-immunological method such as gas chromatography or mass spectrometry. Urine URINE / Unknown Collection / Unknown 02/03/2023 7:05 AM RN NEONATAL ICU 02/03/2023 7:10 AM RN NEONATAL ICU Narrative [facility] - 02/03/2023 7:35 AM RN NEONATAL ICU The Urine Toxicology Screening Panel does not screen for Propoxyphene, Meprobamate, Carisoprodol, Trazodone, [id number] medications and/or volatiles (Acetone, Isopropanol, Methanol or Ethylene Glycol). Ethanol, Salicylate, Acetaminophen, Tricyclic Antidepressants and several therapeutic drugs may be individually assayed in serum or plasma specimen. Toxicology testing by the [facility] is an aid to medical diagnosis and treatment of patients. No documented chain of custody was maintained. Results are intended to be used for clinical purposes only. Clarke Hinojosa MD LAB - URINE CHEMISTR Y ORDERABLES [facility] [address] [place] [id number], [facility] [phone] * TEG 6 GLOBAL HEMOSTASIS W/ LYSIS (02/03/2023 6:52 AM RN NEONATAL ICU) Citrated Kaolin R (Reaction Time) 4.6 4.6 - 9.1 min 02/03/2023 8:04 AM [facility] Citrated Kaolin LY30 (Lysis) 0.0 0.0 - 2.6 % 02/03/2023 8:04 AM [facility] Citrated Functional Fibrinogen MA (Max Amplitude) 19.6 15.0 - 32.0 mm 02/03/2023 8:04 AM [facility] Citrated RapidTEG MA (Max Amplitude) 59.9 52.0 - 70.0 mm 02/03/2023 8:04 AM [facility] Blood BLOOD SPECIMEN / Unknown Venipuncture / Unknown 02/03/2023 6:52 AM RN NEONATAL ICU 02/03/2023 6:57 AM RN NEONATAL ICU Clarke Hinojosa MD LAB - HEMATOLOGY ORD ERABLES Performing Organization Address City/[facility]/ZIP Co de Phone Number [facility] [address] [place] [address], [facility] [phone] * PTT [facility] (02/03/2023 6:52 AM RN NEONATAL ICU) APTT 24.7 23.0 - 38.4 Seconds 02/03/2023 7:18 AM [facility] Comment:Suggested therapeuti c range for full dose I.V. unfractionated heparin therapy for venous thromboembolism is 71 to 109 seconds. Blood BLOOD SPECIMEN / Unknown Venipuncture / Unknown 02/03/2023 6:52 AM RN NEONATAL ICU 02/03/2023 6:57 AM RN NEONATAL ICU Clarke Hinojosa MD LAB - COAGULATION OR DERABLES Performing Organization Address [facility]/ZIP Co de Phone Number [address] [address], [facility] [phone] * PT-INR [facility] (02/03/2023 6:52 AM RN NEONATAL ICU) PT 14.0 12.1 - 14.8 Seconds 02/03/2023 7:18 AM RN NEONATAL ICU [facility] INR 1.1 See Comment 02/03/2023 7:18 AM RN NEONATAL ICU [facility] Comment:The suggested therap eutic range for standard coumadin (warfarin) therapy is an INR of 2.0-3.0. For high-risk patients (Mechanical Mitral Valve Prosthesis, etc.), the suggested prophylactic therapeutic range is an INR of 2.5-3.5. Blood BLOOD SPECIMEN / Unknown Venipuncture / Unknown 02/03/2023 6:52 AM RN NEONATAL ICU 02/03/2023 6:57 AM RN NEONATAL ICU Clarke Hinojosa MD LAB - COAGULATION OR DERABLES [facility] [address] [place] [id number], [place] [phone] * TYPE + SCREEN PANEL (02/03/2023 6:52 AM RN NEONATAL ICU) Antibody Screen NEG 7:37 AM [facility] BLOOD BANK LAB ABO Rh A POS 02/03/2023 7:37 AM [facility] BLOOD BANK LAB Blood Bank BLOOD SPECIMEN / Unknown Venipuncture / Unknown 02/03/2023 6:52 AM RN NEONATAL ICU 02/03/2023 7:00 AM [facility] Clarke Hinojosa MD LAB - BLOOD BANK ORD ERABLES [facility] BLOOD BANK LAB [address] [place] [address], [facility] [phone] * (ABNORMAL) CBC W AUTO DIFFERENTIAL (02/03/2023 6:52 AM [facility]) [facility] WBC 10.6(H) 3.5 - 10.5 10 3/uL 02/03/2023 7:08 AM [facility] RBC 3.67(L) 4.30 - 5.70 10 6/uL 02/03/2023 7:08 AM [facility] Hemoglobin 11.7(L) 12.0 - 17.6 g/dL 02/03/2023 7:08 AM [facility] Hematocrit 35.7 35.2 - 51.7 % 02/03/2023 7:08 AM [facility] MCV 97.3 80.7 - 98.3 fL 02/03/2023 7:08 AM [facility] MCH 31.9 26.7 - 34.0 pg 02/03/2023 7:08 AM [facility] MCHC 32.8 30.8 - 35.9 g/dL 02/03/2023 7:08 AM [facility] RDW-SD 52.5(H) 36.0 - 50.0 fL 02/03/2023 7:08 AM [facility] RDW-CV 14.7 11.2 - 14.8 % 02/03/2023 7:08 AM [facility] Platelet Count 105(L) 150 - 400 10 3/uL 02/03/2023 7:08 AM [facility] MPV 11.5 9.4 - 12.9 fL 02/03/2023 7:08 AM [facility] nRBC Absolute 0.00 0 10 3/uL 02/03/2023 7:08 AM [facility] nRBC Auto 0.0 0 /100 WBC 02/03/2023 7:08 AM [facility] Neutrophils % 76.0(H) 35.0 - 70.0 % 02/03/2023 7:08 AM [facility] Lymphocytes % 15.7(L) 20.0 - 43.0 % 02/03/2023 7:08 AM [facility] Monocytes % 7.3 5.0 - 13.0 % 02/03/2023 7:08 AM [facility] Eosinophils % 0.2 0.0 - 6.0 % 02/03/2023 7:08 AM [facility] Basophil % 0.2 0.0 - 2.0 % 02/03/2023 7:08 AM [facility] Neutrophils Absolute 8.06(H) 1.60 - 7.00 10 3/uL 02/03/2023 7:08 AM [facility] Lymphocyte Absolute 1.66 1.10 - 3.90 10 3/uL 02/03/2023 7:08 AM [facility] Monocytes Absolute 0.77 0.26 - 1.07 10 3/uL 02/03/2023 7:08 AM [facility] Eosinophils Absolute 0.02 0.00 - 0.47 10 3/uL 02/03/2023 7:08 AM [facility] Basophils Absolute 0.02 0.00 - 0.08 10 3/uL 02/03/2023 7:08 AM [facility] Immature Granulocytes % 0.6 0.0 - 1.0 % 02/03/2023 7:08 AM [facility] Immature Granulocytes Absolute 0.06 02/03/2023 7:08 AM [facility] Blood BLOOD SPECIMEN / Unknown Venipuncture / Unknown 02/03/2023 6:52 AM RN NEONATAL ICU 02/03/2023 6:57 AM RN NEONATAL ICU Clarke Hinojosa MD LAB - HEMATOLOGY ORD ERABLES [facility] [address] [place] [address], [facility] [phone] * (ABNORMAL) ALCOHOL ETHYL BLOOD (02/03/2023 6:52 AM RN NEONATAL ICU) Ethanol (mg/dL) 52(H) <10 mg/dL 7:24 AM RN NEONATAL ICU [facility] Ethanol Calculated (g/dL) 0.052(H) <=0.010 g/dL 02/03/2023 7:24 AM [facility] Blood BLOOD SPECIMEN / Unknown Venipuncture / Unknown 02/03/2023 6:52 AM RN NEONATAL ICU 02/03/2023 6:57 AM RN NEONATAL ICU Narrative [facility] - 02/03/2023 7:24 AM RN NEONATAL ICU Ethanol Interp <10: None Detected. 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 Ethanol's contribution to the osmolar gap can be estimated by dividing the concentration of ethanol in mg/dL by 4.6. This test is for clinical use only and does not equal a LARRY for legal purposes. Clarke Hinojosa MD LAB - CHEMISTRY BRIE [facility] Organization Address City/State/ZIP Co de Phone Number [place] [phone] [place] [address], [facility] [phone] * CT LUMBAR SPINE WO CONTRAST - T/L-spine trauma, Spine fracture (02/03/2023 6:49 AM RN NEONATAL ICU) Anatomical Region Laterality Modality Spine Computed Tomogra phy 02/03/2023 7:11 AM RN NEONATAL ICU Impressions 02/03/2023 9:18 AM RN NEONATAL ICU IMPRESSION: 1.No acute intracranial process. 2.No evidence of acute fracture in the cervical, thoracic, or lumbar spine. 3.Mildly displaced acute fractures of the posterior lateral left 10th and 11th ribs. 4.Splenic laceration with surrounding hemorrhage. Please refer to the report of concurrent CT of the abdomen and pelvis for further details. The report is dictated by Parveen Solo MD (president and ceo) Jorge Alberto Guthrie MD have personally reviewed and interpreted this examination/study. > Interpreting Provider: Jorge Alberto Iverson MD on 02/03/2023 9:18 AM Narrative 02/03/2023 9:18 AM RN NEONATAL ICU PROCEDURE: CT THORACIC SPINE WO CONTRAST, CT LUMBAR SPINE WO CONTRAST, CT CERVICAL SPINE WO CONTRAST, CT HEAD WO CONTRAST, DATE/TIME OF EXAM: 02/03/2023 6:50 AM, LOCATION [facility] INDICATION: Trauma EXAMINATION: 1.Computed tomography (CT) of the head without contrast 2.CT of the cervical spine without contrast 3.CT of the thoracic spine without contrast 4.CT of the lumbar spine without contrast TECHNIQUE: CT of the head and cervical spine were performed without contrast according to standard protocol. Reformatted axial, sagittal, and coronal images of the thoracic and lumbar spine were obtained by the technologist from a concurrently performed body CT and sent to the workstation for review. CT dose reduction technique was used, including Automated Exposure Control. COMPARISON: 03/12/2010 CT head FINDINGS: Head: The posterior fossa is degraded by streaky and beam hardening artifacts. 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 There is a small encephalomalacia in the high medial left frontal lobe. No acute intracranial hemorrhage or intra- or extra-axial fluid collections are identified. There is moderate cerebral volume loss with associated ex vacuo ventricular dilatation. The basal cisterns are patent. No mass effect or midline shift is seen. The romero-white matter differentiation is normal. Periventricular white matter hypoattenuation is a nonspecific finding that may be indicative of chronic small vessel ischemic disease. There is atherosclerotic calcification of the carotid siphons. Other than bilateral cataract extractions and mild paranasal sinus disease, the visualized portions of the orbits, paranasal sinuses, and mastoids appear normal. No acute calvarial fracture is identified. Cervical spine: The alignment is normal. The prevertebral soft tissue is normal in thickness. The bones are severely osteopenic. Vertebral bodies are normal in height without evidence of acute fracture. Other than middle atlantoaxial joint osteoarthritis, the craniocervical junction appears normal. There is moderate to severe multilevel degenerative disc disease. The central canal is patent. There are varying degrees of mild to moderate multiple facet osteoarthritis. There are varying degrees of mild to moderate multilevel uncovertebral joint osteoarthritis with the same degree of neural foraminal stenosis at these levels. There is atherosclerotic calcification of the carotid bifurcations. Thoracic spine: Chronic appearing anterior wedge compression deformity of T12 with approximately 25% height loss. Dextroscoliosis of the thoracic spine is seen. Otherwise, the alignment appears normal. The bones are severely osteopenic. Vertebral bodies are normal in height without evidence of acute fracture. There is up to moderate multilevel degenerative disc disease. There is fusion of the lower thoracic vertebral bodies. 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 The central canal is patent. There are varying degrees of mild facet osteoarthritis. No neural foraminal stenosis is seen. There is subsegmental atelectasis in the dependent portions of the lung bases. Atherosclerotic calcification of the thoracic aorta is seen. Lumbar spine: The alignment is normal. The bones are severely osteopenic. Vertebral bodies are normal in height without evidence of acute fracture. There is up to moderate multilevel degenerative disc disease. The central canal is patent. There are varying degrees of up to moderate facet osteoarthritis with the same degree of neural foraminal stenosis at these levels. Mildly displaced acute fractures of the posterior lateral left 10th and 11th ribs. There is a laceration in the right aspect of the spleen. There is moderate amount of a hemorrhage surrounding the spleen and the measures portions of the stomach. Atherosclerotic calcifications in the aorta and its major branches. Please refer to the report of a concurrent CT of the abdomen pelvis for further details. Procedure Note Jorge Alberto Iverson MD - 02/03/2023 PROCEDURE: CT THORACIC SPINE WO CONTRAST, CT LUMBAR SPINE WO CONTRAST,CT CERVICAL SPINE WO CONTRAST, CT HEAD WO CONTRAST, DATE/TIME OF EXAM: 02/03/2023 6:50 AM, LOCATION [facility] INDICATION: Trauma EXAMINATION: 1.Computed tomography (CT) of the head without contrast 2.CT of the cervical spine without contrast 3.CT of the thoracic spine without contrast 4.CT of the lumbar spine without contrast TECHNIQUE: CT of the head and cervical spine were performed without contrast according to standard protocol. Reformatted axial, sagittal,and coronal images of the thoracic and lumbar spine were obtained by the technologist from a concurrently performed body CT and sent to the workstation for review. CT dose reduction technique was used, including Automated Exposure Control. COMPARISON: 03/12/2010 CT head FINDINGS: Head: The posterior fossa is degraded by streaky and beam hardening artifacts. 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 There is a small encephalomalacia in the high medial left frontal lobe. No acute intracranial hemorrhage or intra- or extra-axial fluidcollections are identified. There is moderate cerebral volume loss with associatedex vacuo ventricular dilatation. The basal cisterns are patent. No masseffect or midline shift is seen. The romero-white matter differentiation isnormal. Periventricular white matter hypoattenuation is a nonspecific findingthat may be indicative of chronic small vessel ischemic disease. There is atherosclerotic calcification of the carotid siphons. Other than bilateral cataract extractions and mild paranasal sinusdisease, the visualized portions of the orbits, paranasal sinuses, and mastoids appear normal. No acute calvarial fracture is identified. Cervical spine: The alignment is normal. The prevertebral soft tissue is normal in thickness. The bones are severely osteopenic. Vertebral bodies arenormal in height without evidence of acute fracture. Other than middle atlantoaxial joint osteoarthritis, the craniocervical junction appears normal. There is moderate to severe multilevel degenerative discdisease. The central canal is patent. There are varying degrees of mild tomoderate multiple facet osteoarthritis. There are varying degrees of mild to moderate multilevel uncovertebral joint osteoarthritis with the samedegree of neural foraminal stenosis at these levels. There is atherosclerotic calcification of the carotid bifurcations. Thoracic spine: Chronic appearing anterior wedge compression deformity of T12 with approximately 25% height loss. Dextroscoliosis of the thoracic spine is seen. Otherwise, the alignment appears normal. The bones are severely osteopenic. Vertebral bodies are normal in height without evidence of acute fracture. There is up to moderate multilevel degenerative disc disease. There is fusion of thelower thoracic vertebral bodies. 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 The central canal is patent.There are varying degrees of mild facet osteoarthritis. No neural foraminal stenosis is seen. There is subsegmental atelectasis in the dependent portions of the lung bases. Atherosclerotic calcification of the thoracic aorta is seen. Lumbar spine: The alignment is normal. The bones are severely osteopenic. Vertebral bodies are normal in height without evidence of acute fracture. There isup to moderate multilevel degenerative disc disease. The central canal is patent. There are varying degrees of up to moderate facet osteoarthritis with the same degree of neural foraminal stenosis at these levels. Mildly displaced acute fractures of the posterior lateral left 10th and 11th ribs. There is a laceration in the right aspect of the spleen. There ismoderate amount of a hemorrhage surrounding the spleen and the measures portionsof the stomach. Atherosclerotic calcifications in the aorta and its major branches. Please refer to the report of a concurrent CT of the abdomen pelvis for further details. IMPRESSION: 1.No acute intracranial process. 2.No evidence of acute fracture in the cervical, thoracic, or lumbarspine. 3.Mildly displaced acute fractures of the posterior lateral left 10thand 11th ribs. 4.Splenic laceration with surrounding hemorrhage. Please refer to the report of concurrent CT of the abdomen and pelvis for further details. The report is dictated by Parveen Solo MD (president and ceo) Jorge Alberto Guthrie MD have personally reviewed and interpreted this examination/study. > Interpreting Provider: Jorge Alberto Iverson MD on 02/03/2023 9:18 AM Clarke Hinojosa MD CT ORDERABLES * CT THORACIC SPINE WO CONTRAST - T/L-spine trauma, spine fracture (02/03/2023 6:49 AM RN [facility]ONAT[facility] ICU) Anatomical Region Laterality Modality Spine Computed Tomogra phy 02/03/2023 7:11 AM RN [facility] ICU Impressions 02/03/2023 9:18 AM RN [facility]AT[facility] ICU IMPRESSION: 1.No acute intracranial process. 2.No evidence of acute fracture in the cervical, thoracic, or lumbar spine. 3.Mildly displaced acute fractures of the posterior lateral left 10th and 11th ribs. 4.Splenic laceration with surrounding hemorrhage. Please refer to the report of concurrent CT of the abdomen and pelvis for further details. The report is dictated by Parveen Solo MD (president and ceo) Jorge Alberto Guthrie MD have personally reviewed and interpreted this examination/study. > Interpreting Provider: Jorge Alberto Iverson MD on 02/03/2023 9:18 AM Narrative 02/03/2023 9:18 AM RN [facility]AT[facility] ICU PROCEDURE: CT THORACIC SPINE WO CONTRAST, CT LUMBAR SPINE WO CONTRAST, CT CERVICAL SPINE WO CONTRAST, CT HEAD WO CONTRAST, DATE/TIME OF EXAM: 02/03/2023 6:50 AM, LOCATION [facility] INDICATION: Trauma EXAMINATION: 1.Computed tomography (CT) of the head without contrast 2.CT of the cervical spine without contrast 3.CT of the thoracic spine without contrast 4.CT of the lumbar spine without contrast TECHNIQUE: CT of the head and cervical spine were performed without contrast according to standard protocol. Reformatted axial, sagittal, and coronal images of the thoracic and lumbar spine were obtained by the technologist from a concurrently performed body CT and sent to the workstation for review. CT dose reduction technique was used, including Automated Exposure Control. COMPARISON: 03/12/2010 CT head FINDINGS: Head: The posterior fossa is degraded by streaky and beam hardening artifacts. 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 There is a small encephalomalacia in the high medial left frontal lobe. No acute intracranial hemorrhage or intra- or extra-axial fluid collections are identified. There is moderate cerebral volume loss with associated ex vacuo ventricular dilatation. The basal cisterns are patent. No mass effect or midline shift is seen. The romero-white matter differentiation is normal. Periventricular white matter hypoattenuation is a nonspecific finding that may be indicative of chronic small vessel ischemic disease. There is atherosclerotic calcification of the carotid siphons. Other than bilateral cataract extractions and mild paranasal sinus disease, the visualized portions of the orbits, paranasal sinuses, and mastoids appear normal. No acute calvarial fracture is identified. Cervical spine: The alignment is normal. The prevertebral soft tissue is normal in thickness. The bones are severely osteopenic. Vertebral bodies are normal in height without evidence of acute fracture. Other than middle atlantoaxial joint osteoarthritis, the craniocervical junction appears normal. There is moderate to severe multilevel degenerative disc disease. The central canal is patent. There are varying degrees of mild to moderate multiple facet osteoarthritis. There are varying degrees of mild to moderate multilevel uncovertebral joint osteoarthritis with the same degree of neural foraminal stenosis at these levels. There is atherosclerotic calcification of the carotid bifurcations. Thoracic spine: Chronic appearing anterior wedge compression deformity of T12 with approximately 25% height loss. Dextroscoliosis of the thoracic spine is seen. Otherwise, the alignment appears normal. The bones are severely osteopenic. Vertebral bodies are normal in height without evidence of acute fracture. There is up to moderate multilevel degenerative disc disease. There is fusion of the lower thoracic vertebral bodies. 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 The central canal is patent. There are varying degrees of mild facet osteoarthritis. No neural foraminal stenosis is seen. There is subsegmental atelectasis in the dependent portions of the lung bases. Atherosclerotic calcification of the thoracic aorta is seen. Lumbar spine: The alignment is normal. The bones are severely osteopenic. Vertebral bodies are normal in height without evidence of acute fracture. There is up to moderate multilevel degenerative disc disease. The central canal is patent. There are varying degrees of up to moderate facet osteoarthritis with the same degree of neural foraminal stenosis at these levels. Mildly displaced acute fractures of the posterior lateral left 10th and 11th ribs. There is a laceration in the right aspect of the spleen. There is moderate amount of a hemorrhage surrounding the spleen and the measures portions of the stomach. Atherosclerotic calcifications in the aorta and its major branches. Please refer to the report of a concurrent CT of the abdomen pelvis for further details. Procedure Note Jorge Alberto Iverson MD - 02/03/2023 PROCEDURE: CT THORACIC SPINE WO CONTRAST, CT LUMBAR SPINE WO CONTRAST,CT CERVICAL SPINE WO CONTRAST, CT HEAD WO CONTRAST, DATE/TIME OF EXAM: 02/03/2023 6:50 AM, LOCATION [facility] INDICATION: Trauma EXAMINATION: 1.Computed tomography (CT) of the head without contrast 2.CT of the cervical spine without contrast 3.CT of the thoracic spine without contrast 4.CT of the lumbar spine without contrast TECHNIQUE: CT of the head and cervical spine were performed without contrast according to standard protocol. Reformatted axial, sagittal,and coronal images of the thoracic and lumbar spine were obtained by the technologist from a concurrently performed body CT and sent to the workstation for review. CT dose reduction technique was used, including Automated Exposure Control. COMPARISON: 03/12/2010 CT head FINDINGS: Head: The posterior fossa is degraded by streaky and beam hardening artifacts. 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 There is a small encephalomalacia in the high medial left frontal lobe. No acute intracranial hemorrhage or intra- or extra-axial fluidcollections are identified. There is moderate cerebral volume loss with associatedex vacuo ventricular dilatation. The basal cisterns are patent. No masseffect or midline shift is seen. The romero-white matter differentiation isnormal. Periventricular white matter hypoattenuation is a nonspecific findingthat may be indicative of chronic small vessel ischemic disease. There is atherosclerotic calcification of the carotid siphons. Other than bilateral cataract extractions and mild paranasal sinusdisease, the visualized portions of the orbits, paranasal sinuses, and mastoids appear normal. No acute calvarial fracture is identified. Cervical spine: The alignment is normal. The prevertebral soft tissue is normal in thickness. The bones are severely osteopenic. Vertebral bodies arenormal in height without evidence of acute fracture. Other than middle atlantoaxial joint osteoarthritis, the craniocervical junction appears normal. There is moderate to severe multilevel degenerative discdisease. The central canal is patent. There are varying degrees of mild tomoderate multiple facet osteoarthritis. There are varying degrees of mild to moderate multilevel uncovertebral joint osteoarthritis with the samedegree of neural foraminal stenosis at these levels. There is atherosclerotic calcification of the carotid bifurcations. Thoracic spine: Chronic appearing anterior wedge compression deformity of T12 with approximately 25% height loss. Dextroscoliosis of the thoracic spine is seen. Otherwise, the alignment appears normal. The bones are severely osteopenic. Vertebral bodies are normal in height without evidence of acute fracture. There is up to moderate multilevel degenerative disc disease. There is fusion of thelower thoracic vertebral bodies. 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 The central canal is patent.There are varying degrees of mild facet osteoarthritis. No neural foraminal stenosis is seen. There is subsegmental atelectasis in the dependent portions of the lung bases. Atherosclerotic calcification of the thoracic aorta is seen. Lumbar spine: The alignment is normal. The bones are severely osteopenic. Vertebral bodies are normal in height without evidence of acute fracture. There isup to moderate multilevel degenerative disc disease. The central canal is patent. There are varying degrees of up to moderate facet osteoarthritis with the same degree of neural foraminal stenosis at these levels. Mildly displaced acute fractures of the posterior lateral left 10th and 11th ribs. There is a laceration in the right aspect of the spleen. There ismoderate amount of a hemorrhage surrounding the spleen and the measures portionsof the stomach. Atherosclerotic calcifications in the aorta and its major branches. Please refer to the report of a concurrent CT of the abdomen pelvis for further details. IMPRESSION: 1.No acute intracranial process. 2.No evidence of acute fracture in the cervical, thoracic, or lumbarspine. 3.Mildly displaced acute fractures of the posterior lateral left 10thand 11th ribs. 4.Splenic laceration with surrounding hemorrhage. Please refer to the report of concurrent CT of the abdomen and pelvis for further details. The report is dictated by Parveen Solo MD (president and ceo) Jorge Alberto Guthrie MD have personally reviewed and interpreted this examination/study. > Interpreting Provider: Jorge Alberto Iverson MD on 02/03/2023 9:18 AM Clarke Hinojosa MD CT ORDERABLES * CT CERVICAL SPINE WO CONTRAST - C-Spine Trauma, Spine fracture (02/03/2023 6:49 AM RN [facility] ICU) Anatomical Region Laterality Modality Spine Computed Tomogra phy 02/03/2023 7:11 AM RN [facility] ICU Impressions 02/03/2023 9:18 AM RN [facility] ICU IMPRESSION: 1.No acute intracranial process. 2.No evidence of acute fracture in the cervical, thoracic, or lumbar spine. 3.Mildly displaced acute fractures of the posterior lateral left 10th and 11th ribs. 4.Splenic laceration with surrounding hemorrhage. Please refer to the report of concurrent CT of the abdomen and pelvis for further details. The report is dictated by Parveen Solo MD (president and ceo) Jorge Alberto Guthrie MD have personally reviewed and interpreted this examination/study. > Interpreting Provider: Jorge Alberto Iverson MD on 02/03/2023 9:18 AM Narrative 02/03/2023 9:18 AM RN [facility]ONAT[facility] ICU PROCEDURE: CT THORACIC SPINE WO CONTRAST, CT LUMBAR SPINE WO CONTRAST, CT CERVICAL SPINE WO CONTRAST, CT HEAD WO CONTRAST, DATE/TIME OF EXAM: 02/03/2023 6:50 AM, LOCATION [facility] INDICATION: Trauma EXAMINATION: 1.Computed tomography (CT) of the head without contrast 2.CT of the cervical spine without contrast 3.CT of the thoracic spine without contrast 4.CT of the lumbar spine without contrast TECHNIQUE: CT of the head and cervical spine were performed without contrast according to standard protocol. Reformatted axial, sagittal, and coronal images of the thoracic and lumbar spine were obtained by the technologist from a concurrently performed body CT and sent to the workstation for review. CT dose reduction technique was used, including Automated Exposure Control. COMPARISON: 03/12/2010 CT head FINDINGS: Head: The posterior fossa is degraded by streaky and beam hardening artifacts. 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 There is a small encephalomalacia in the high medial left frontal lobe. No acute intracranial hemorrhage or intra- or extra-axial fluid collections are identified. There is moderate cerebral volume loss with associated ex vacuo ventricular dilatation. The basal cisterns are patent. No mass effect or midline shift is seen. The romero-white matter differentiation is normal. Periventricular white matter hypoattenuation is a nonspecific finding that may be indicative of chronic small vessel ischemic disease. There is atherosclerotic calcification of the carotid siphons. Other than bilateral cataract extractions and mild paranasal sinus disease, the visualized portions of the orbits, paranasal sinuses, and mastoids appear normal. No acute calvarial fracture is identified. Cervical spine: The alignment is normal. The prevertebral soft tissue is normal in thickness. The bones are severely osteopenic. Vertebral bodies are normal in height without evidence of acute fracture. Other than middle atlantoaxial joint osteoarthritis, the craniocervical junction appears normal. There is moderate to severe multilevel degenerative disc disease. The central canal is patent. There are varying degrees of mild to moderate multiple facet osteoarthritis. There are varying degrees of mild to moderate multilevel uncovertebral joint osteoarthritis with the same degree of neural foraminal stenosis at these levels. There is atherosclerotic calcification of the carotid bifurcations. Thoracic spine: Chronic appearing anterior wedge compression deformity of T12 with approximately 25% height loss. Dextroscoliosis of the thoracic spine is seen. Otherwise, the alignment appears normal. The bones are severely osteopenic. Vertebral bodies are normal in height without evidence of acute fracture. There is up to moderate multilevel degenerative disc disease. There is fusion of the lower thoracic vertebral bodies. 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 The central canal is patent. There are varying degrees of mild facet osteoarthritis. No neural foraminal stenosis is seen. There is subsegmental atelectasis in the dependent portions of the lung bases. Atherosclerotic calcification of the thoracic aorta is seen. Lumbar spine: The alignment is normal. The bones are severely osteopenic. Vertebral bodies are normal in height without evidence of acute fracture. There is up to moderate multilevel degenerative disc disease. The central canal is patent. There are varying degrees of up to moderate facet osteoarthritis with the same degree of neural foraminal stenosis at these levels. Mildly displaced acute fractures of the posterior lateral left 10th and 11th ribs. There is a laceration in the right aspect of the spleen. There is moderate amount of a hemorrhage surrounding the spleen and the measures portions of the stomach. Atherosclerotic calcifications in the aorta and its major branches. Please refer to the report of a concurrent CT of the abdomen pelvis for further details. Procedure Note Jorge Alberto Iverson MD - 02/03/2023 PROCEDURE: CT THORACIC SPINE WO CONTRAST, CT LUMBAR SPINE WO CONTRAST,CT CERVICAL SPINE WO CONTRAST, CT HEAD WO CONTRAST, DATE/TIME OF EXAM: 02/03/2023 6:50 AM, LOCATION [facility] INDICATION: Trauma EXAMINATION: 1.Computed tomography (CT) of the head without contrast 2.CT of the cervical spine without contrast 3.CT of the thoracic spine without contrast 4.CT of the lumbar spine without contrast TECHNIQUE: CT of the head and cervical spine were performed without contrast according to standard protocol. Reformatted axial, sagittal,and coronal images of the thoracic and lumbar spine were obtained by the technologist from a concurrently performed body CT and sent to the workstation for review. CT dose reduction technique was used, including Automated Exposure Control. COMPARISON: 03/12/2010 CT head FINDINGS: Head: The posterior fossa is degraded by streaky and beam hardening artifacts. 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 There is a small encephalomalacia in the high medial left frontal lobe. No acute intracranial hemorrhage or intra- or extra-axial fluidcollections are identified. There is moderate cerebral volume loss with associatedex vacuo ventricular dilatation. The basal cisterns are patent. No masseffect or midline shift is seen. The roemro-white matter differentiation isnormal. Periventricular white matter hypoattenuation is a nonspecific findingthat may be indicative of chronic small vessel ischemic disease. There is atherosclerotic calcification of the carotid siphons. Other than bilateral cataract extractions and mild paranasal sinusdisease, the visualized portions of the orbits, paranasal sinuses, and mastoids appear normal. No acute calvarial fracture is identified. Cervical spine: The alignment is normal. The prevertebral soft tissue is normal in thickness. The bones are severely osteopenic. Vertebral bodies arenormal in height without evidence of acute fracture. Other than middle atlantoaxial joint osteoarthritis, the craniocervical junction appears normal. There is moderate to severe multilevel degenerative discdisease. The central canal is patent. There are varying degrees of mild tomoderate multiple facet osteoarthritis. There are varying degrees of mild to moderate multilevel uncovertebral joint osteoarthritis with the samedegree of neural foraminal stenosis at these levels. There is atherosclerotic calcification of the carotid bifurcations. Thoracic spine: Chronic appearing anterior wedge compression deformity of T12 with approximately 25% height loss. Dextroscoliosis of the thoracic spine is seen. Otherwise, the alignment appears normal. The bones are severely osteopenic. Vertebral bodies are normal in height without evidence of acute fracture. There is up to moderate multilevel degenerative disc disease. There is fusion of thelower thoracic vertebral bodies. 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 The central canal is patent.There are varying degrees of mild facet osteoarthritis. No neural foraminal stenosis is seen. There is subsegmental atelectasis in the dependent portions of the lung bases. Atherosclerotic calcification of the thoracic aorta is seen. Lumbar spine: The alignment is normal. The bones are severely osteopenic. Vertebral bodies are normal in height without evidence of acute fracture. There isup to moderate multilevel degenerative disc disease. The central canal is patent. There are varying degrees of up to moderate facet osteoarthritis with the same degree of neural foraminal stenosis at these levels. Mildly displaced acute fractures of the posterior lateral left 10th and 11th ribs. There is a laceration in the right aspect of the spleen. There ismoderate amount of a hemorrhage surrounding the spleen and the measures portionsof the stomach. Atherosclerotic calcifications in the aorta and its major branches. Please refer to the report of a concurrent CT of the abdomen pelvis for further details. IMPRESSION: 1.No acute intracranial process. 2.No evidence of acute fracture in the cervical, thoracic, or lumbarspine. 3.Mildly displaced acute fractures of the posterior lateral left 10thand 11th ribs. 4.Splenic laceration with surrounding hemorrhage. Please refer to the report of concurrent CT of the abdomen and pelvis for further details. The report is dictated by Parveen Solo MD (president and ceo) I, Jorge Alberto Iverson MD have personally reviewed and interpreted this examination/study. > Interpreting Provider: Jorge Alberto Iverson MD on 02/03/2023 9:18 AM Clarke Hinojosa MD CT ORDERABLES * CT HEAD WO CONTRAST - Head Trauma, CSF leak, mental status changes (02/03/2023 6:49 AM RN [facility] ICU) Anatomical Region Laterality Modality Head Computed Tomogra phy 02/03/2023 7:11 AM RN [facility] ICU Impressions 02/03/2023 9:18 AM RN NEONATAL ICU IMPRESSION: 1.No acute intracranial process. 2.No evidence of acute fracture in the cervical, thoracic, or lumbar spine. 3.Mildly displaced acute fractures of the posterior lateral left 10th and 11th ribs. 4.Splenic laceration with surrounding hemorrhage. Please refer to the report of concurrent CT of the abdomen and pelvis for further details. The report is dictated by Parveen Solo MD (president and ceo) I, Jorge Alberto Iverson MD have personally reviewed and interpreted this examination/study. > Interpreting Provider: Jorge Alberto Iverson MD on 02/03/2023 9:18 AM Narrative 02/03/2023 9:18 AM RN [facility]ONAT[facility] ICU PROCEDURE: CT THORACIC SPINE WO CONTRAST, CT LUMBAR SPINE WO CONTRAST, CT CERVICAL SPINE WO CONTRAST, CT HEAD WO CONTRAST, DATE/TIME OF EXAM: 02/03/2023 6:50 AM, LOCATION [facility] INDICATION: Trauma EXAMINATION: 1.Computed tomography (CT) of the head without contrast 2.CT of the cervical spine without contrast 3.CT of the thoracic spine without contrast 4.CT of the lumbar spine without contrast TECHNIQUE: CT of the head and cervical spine were performed without contrast according to standard protocol. Reformatted axial, sagittal, and coronal images of the thoracic and lumbar spine were obtained by the technologist from a concurrently performed body CT and sent to the workstation for review. CT dose reduction technique was used, including Automated Exposure Control. COMPARISON: 03/12/2010 CT head FINDINGS: Head: The posterior fossa is degraded by streaky and beam hardening artifacts. 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 There is a small encephalomalacia in the high medial left frontal lobe. No acute intracranial hemorrhage or intra- or extra-axial fluid collections are identified. There is moderate cerebral volume loss with associated ex vacuo ventricular dilatation. The basal cisterns are patent. No mass effect or midline shift is seen. The romero-white matter differentiation is normal. Periventricular white matter hypoattenuation is a nonspecific finding that may be indicative of chronic small vessel ischemic disease. There is atherosclerotic calcification of the carotid siphons. Other than bilateral cataract extractions and mild paranasal sinus disease, the visualized portions of the orbits, paranasal sinuses, and mastoids appear normal. No acute calvarial fracture is identified. Cervical spine: The alignment is normal. The prevertebral soft tissue is normal in thickness. The bones are severely osteopenic. Vertebral bodies are normal in height without evidence of acute fracture. Other than middle atlantoaxial joint osteoarthritis, the craniocervical junction appears normal. There is moderate to severe multilevel degenerative disc disease. The central canal is patent. There are varying degrees of mild to moderate multiple facet osteoarthritis. There are varying degrees of mild to moderate multilevel uncovertebral joint osteoarthritis with the same degree of neural foraminal stenosis at these levels. There is atherosclerotic calcification of the carotid bifurcations. Thoracic spine: Chronic appearing anterior wedge compression deformity of T12 with approximately 25% height loss. Dextroscoliosis of the thoracic spine is seen. Otherwise, the alignment appears normal. The bones are severely osteopenic. Vertebral bodies are normal in height without evidence of acute fracture. There is up to moderate multilevel degenerative disc disease. There is fusion of the lower thoracic vertebral bodies. 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 The central canal is patent. There are varying degrees of mild facet osteoarthritis. No neural foraminal stenosis is seen. There is subsegmental atelectasis in the dependent portions of the lung bases. Atherosclerotic calcification of the thoracic aorta is seen. Lumbar spine: The alignment is normal. The bones are severely osteopenic. Vertebral bodies are normal in height without evidence of acute fracture. There is up to moderate multilevel degenerative disc disease. The central canal is patent. There are varying degrees of up to moderate facet osteoarthritis with the same degree of neural foraminal stenosis at these levels. Mildly displaced acute fractures of the posterior lateral left 10th and 11th ribs. There is a laceration in the right aspect of the spleen. There is moderate amount of a hemorrhage surrounding the spleen and the measures portions of the stomach. Atherosclerotic calcifications in the aorta and its major branches. Please refer to the report of a concurrent CT of the abdomen pelvis for further details. Procedure Note Jorge Alberto Iverson MD - 02/03/2023 PROCEDURE: CT THORACIC SPINE WO CONTRAST, CT LUMBAR SPINE WO CONTRAST,CT CERVICAL SPINE WO CONTRAST, CT HEAD WO CONTRAST, DATE/TIME OF EXAM: 02/03/2023 6:50 AM, LOCATION [facility] INDICATION: Trauma EXAMINATION: 1.Computed tomography (CT) of the head without contrast 2.CT of the cervical spine without contrast 3.CT of the thoracic spine without contrast 4.CT of the lumbar spine without contrast TECHNIQUE: CT of the head and cervical spine were performed without contrast according to standard protocol. Reformatted axial, sagittal,and coronal images of the thoracic and lumbar spine were obtained by the technologist from a concurrently performed body CT and sent to the workstation for review. CT dose reduction technique was used, including Automated Exposure Control. COMPARISON: 03/12/2010 CT head FINDINGS: Head: The posterior fossa is degraded by streaky and beam hardening artifacts. 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 There is a small encephalomalacia in the high medial left frontal lobe. No acute intracranial hemorrhage or intra- or extra-axial fluidcollections are identified. There is moderate cerebral volume loss with associatedex vacuo ventricular dilatation. The basal cisterns are patent. No masseffect or midline shift is seen. The romero-white matter differentiation isnormal. Periventricular white matter hypoattenuation is a nonspecific findingthat may be indicative of chronic small vessel ischemic disease. There is atherosclerotic calcification of the carotid siphons. Other than bilateral cataract extractions and mild paranasal sinusdisease, the visualized portions of the orbits, paranasal sinuses, and mastoids appear normal. No acute calvarial fracture is identified. Cervical spine: The alignment is normal. The prevertebral soft tissue is normal in thickness. The bones are severely osteopenic. Vertebral bodies arenormal in height without evidence of acute fracture. Other than middle atlantoaxial joint osteoarthritis, the craniocervical junction appears normal. There is moderate to severe multilevel degenerative discdisease. The central canal is patent. There are varying degrees of mild tomoderate multiple facet osteoarthritis. There are varying degrees of mild to moderate multilevel uncovertebral joint osteoarthritis with the samedegree of neural foraminal stenosis at these levels. There is atherosclerotic calcification of the carotid bifurcations. Thoracic spine: Chronic appearing anterior wedge compression deformity of T12 with approximately 25% height loss. Dextroscoliosis of the thoracic spine is seen. Otherwise, the alignment appears normal. The bones are severely osteopenic. Vertebral bodies are normal in height without evidence of acute fracture. There is up to moderate multilevel degenerative disc disease. There is fusion of thelower thoracic vertebral bodies. 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 The central canal is patent.There are varying degrees of mild facet osteoarthritis. No neural foraminal stenosis is seen. There is subsegmental atelectasis in the dependent portions of the lung bases. Atherosclerotic calcification of the thoracic aorta is seen. Lumbar spine: The alignment is normal. The bones are severely osteopenic. Vertebral bodies are normal in height without evidence of acute fracture. There isup to moderate multilevel degenerative disc disease. The central canal is patent. There are varying degrees of up to moderate facet osteoarthritis with the same degree of neural foraminal stenosis at these levels. Mildly displaced acute fractures of the posterior lateral left 10th and 11th ribs. There is a laceration in the right aspect of the spleen. There ismoderate amount of a hemorrhage surrounding the spleen and the measures portionsof the stomach. Atherosclerotic calcifications in the aorta and its major branches. Please refer to the report of a concurrent CT of the abdomen pelvis for further details. IMPRESSION: 1.No acute intracranial process. 2.No evidence of acute fracture in the cervical, thoracic, or lumbarspine. 3.Mildly displaced acute fractures of the posterior lateral left 10thand 11th ribs. 4.Splenic laceration with surrounding hemorrhage. Please refer to the report of concurrent CT of the abdomen and pelvis for further details. The report is dictated by Parveen Solo MD (president and ceo) I, Jorge Alberto Iverson MD have personally reviewed and interpreted this examination/study. > Interpreting Provider: Jorge Alberto Iverson MD on 02/03/2023 9:18 AM Clarke Hinojosa MD CT ORDERABLES * XR PELVIS 1 OR 2VW (02/03/2023 6:29 AM RN NEONATAL ICU) Anatomical Region Laterality Modality Pelvis Radiographic Naya ging 02/03/2023 6:51 AM RN NEONATAL ICU Narrative 02/03/2023 9:50 AM RN NEONATAL ICU PROCEDURE: XR PELVIS 1 OR 2VW, DATE/TIME OF EXAM: 02/03/2023 6:29 AM, LOCATION [facility] INDICATION: Trauma Fracture suspected COMPARISON: None. FINDINGS: Residual contrast within the bladder partly degrading visualization of the bony pelvis. Overlying soft tissues also degrade visualization. No displaced pelvic fracture is present. There is no sacroiliac joint or pubic symphysis diastasis. Report dictated by Obed Flynn MD (president and ceo). Agapito Guthrie MD have personally reviewed and interpreted this examination/study. > Interpreting Provider: Agapito Lu MD on 02/03/2023 9:50 AM Procedure Note Agapito Lu MD - 02/03/2023 PROCEDURE: XR PELVIS 1 OR 2VW, DATE/TIME OF EXAM: 02/03/2023 6:29 AM, LOCATION [facility] INDICATION: Trauma Fracture suspected COMPARISON: None. FINDINGS: Residual contrast within the bladder partly degrading visualization ofthe bony pelvis. Overlying soft tissues also degrade visualization. No displaced pelvic fracture is present. There is no sacroiliac joint or pubic symphysis diastasis. Report dictated by Obed Flynn MD (president and ceo). Agapito Guthrie MD have personally reviewed and interpreted this examination/study. > Interpreting Provider: Agapito Lu MD on 02/03/2023 9:50 AM Clarke Hinojosa MD DIAGNOSTIC IMAGING O RDERABLES * XR CHEST 1VW PORTABLE (02/03/2023 6:28 AM RN NEONATAL ICU) Anatomical Region Laterality Modality Chest Radiographic Naya ging 02/03/2023 6:44 AM RN NEONATAL ICU Narrative 02/03/2023 9:42 AM RN NEONATAL ICU PROCEDURE: XR CHEST 1VW PORTABLE, DATE/TIME OF EXAM: 02/03/2023 6:29 AM, LOCATION [facility] INDICATION: Trauma COMPARISON: CT of chest on 02/03/2023 at 6:30 AM FINDINGS/IMPRESSION: Cervical collar is present. Lung volumes are low with bronchovascular crowding . There is no confluent consolidation, pleural effusion, or pneumothorax. Widening of upper mediastinal contour is most likely positional, comparing to the CT of chest. Multiple rib fractures in the left side are better visualized in the CT of the chest. Report dictated by Obed Flynn MD (president and ceo). Agapito Guthrie MD have personally reviewed and interpreted this examination/study. > Interpreting Provider: Agapito Lu MD on 02/03/2023 9:42 AM Procedure Note Agapito Lu MD - 02/03/2023 PROCEDURE: XR CHEST 1VW PORTABLE, DATE/TIME OF EXAM: 02/03/2023 6:29AM, LOCATION [facility] INDICATION: Trauma COMPARISON: CT of chest on 02/03/2023 at 6:30 AM FINDINGS/IMPRESSION: Cervical collar is present. Lung volumes are low with bronchovascular crowding . There is noconfluent consolidation, pleural effusion, or pneumothorax. Widening of upper mediastinal contour is most likely positional,comparing to the CT of chest. Multiple rib fractures in the left side are better visualized in the CTof the chest. Report dictated by Obed Flynn MD (president and ceo). IAgapito MD have personally reviewed and interpreted this examination/study. 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
--- OUTSIDE RECORDS SUMMARY | 2024-04-16 10:24 | XMS_ITS | Referral Summary ---
Author Organization [facility] [address] [facility] [address] Address [address] [place] [address] Care Team Providers Care Show Host Or Hostess Name Role Phone Geraldo Bearden MD Primary Care Provider Encounters Date Type Department Care Team Description 02/05/2024 10:00 AM CARPENTER FORM Office Visit [facility] Cardiology [address] [facility] [address] [place] [address] Anurag Anne MD Coronary artery disease involving [place] coronary artery of [place] heart without angina pectoris (Primary Dx) from Last 3 Months Allergies No known active allergies Medications candesartan (ATACAND) 16 mg tablet 1 tablet (16 mg total) daily 02/20/2019 Active omega-3 fatty acids-fish oil 360-1,200 mg capsule Take 1 tablet by mouth daily Active multivitamin capsule Take 1 capsule by mouth daily Active rosuvastatin (CRESTOR) 40 mg tablet Take 1 tablet (40 mg total) by mouth daily Active aspirin 81 mg enteric coated tablet Take 1 tablet (81 mg total) by mouth daily Active ascorbic acid (VITAMIN C) 500 mg tablet,chewable Acti ve cyanocobalamin, vitamin B-12, 5,000 mcg tablet, sublingual Place under the tongue Active Active Problems Problem Noted Date Diagnosed Date Coronary artery disease invo lving [place] coronary artery of [place] heart without angina pectoris 05/21/2019 Social History Tobacco Use Types Packs/Day Years Used Date Smoking Tobacco: Former Smokeless Tobacco: Never Tobacco Cessation:Counseling Given: Not Answered Sex and Gender Information Value Date Recorded Sex Assigned at Not on file Legal Sex Male 4:16 PM CARPENTER FORM Gender Identity Not on file Sexual Orientation Not on file Last Filed Vital Signs Vital Sign Reading Time Taken Comments Blood Pressure 130/70 02/05/2024 9:59 AM CARPENTER FORM Pulse 89 02/05/2024 9:59 AM CARPENTER FORM Temperature - - Respiratory Rate - - Oxygen Saturation 90% 02/05/2024 9:59 AM CARPENTER FORM Inhaled Oxygen Concentration - - Weight 98.4 kg (217 lb) 02/05/2024 9:59 AM CARPENTER FORM Height 180.3 cm (5' 11 ) 02/05/2024 9:59 AM CARPENTER FORM Body Mass Index 30.27 02/05/2024 9:59 AM CARPENTER FORM Plan of Treatment Not on file Insurance MEDICARE MEDICARE [facility] MEDICARE SUPPLEMENT Member Subscriber Plan / Payer (Ef fective 2024-Present) Name:Ruperto Jacobo Relation to Subscriber:Self Name:Ruperto Jacobo Payer ID:[id number] Group ID:Not on file Type:COMMERCIAL Address: [facility] [id number] [place] [id number] Care Teams Show Host Or Hostess Relationship Specialty Start Date End Date Geraldo Bearden MD [address] [place] [address] [facility]IC[facility] [place] [id number] PCP - General Internal Medicine 03/05/19
--- OUTSIDE RECORDS SUMMARY | 2024-04-16 10:24 | XMS_ITS | Clinical Summary ---
Author Organization [facility] Address [address] [place] [address] Care Team Providers Care Pourer Crane Ladle Name Role Phone Geraldo Bearden MD Primary Care Provider [phone] Social History Tobacco Use Types Packs/Day Years Used Date Smoking Tobacco: Never Assessed Sex and Gender Information Value Date Recorded Sex Assigned at Not on file Legal Sex Male 7:51 AM CDT Gender Identity Not on file Sexual Orientation Not on file Plan of Treatment Health Maintenance Due Date Last Done Comments Hepatitis C 09/23/1963 DTaP, Tdap and Td Vaccines (1 - Tdap) 1964 Annual Medicare Wellness Visit 2010 COVID-19 Vaccine ( season) 2023 12/09/2022, 12/06/2021, 06/25/2021, Additional history exists Influenza Adult (#1) 2023 12/27/2018, 12/23/19 18 Zoster Vaccines Completed 04/24/2019, 02/04/2019 Pneumococcal Vaccine: 65+ Years Completed 03/08/2023, 02/05/2020, 02/04/2019 RSV Immunization or 60+ Years Completed 03/08/2023 Meningococcal B Vaccine Aged Out No l onger eligible based on patient's age to complete this topic Meningococcal Vaccine Aged Out No thaddeus yessy eligible based on patient's age to complete this topic RSV Immunizations Under 20 Months Aged Out No longer eligible based on patient's age to complete this topic Insurance [facility] MEDICARE Care Teams Pourer Crane Ladle Relationship Specialty Start Date End Date Geraldo Bearden MD [address] [place] [address] PCP - General INTERNAL MEDICINE 06/09/23
--- OUTSIDE RECORDS SUMMARY | 2024-04-16 10:24 | XMS_ITS | Clinical Summary ---
Author Organization [facility] Address [address] [facility] [place] [address] Care Team Providers Care Senior Games Technician Name Role Phone Geraldo Bearden MD Primary Care Provider [phone] Source Comments [facility],non-owned Affiliates and Associated Physician Practices is amultiple site organization consisting of ambulatory clinics and hospital sitesin [place], [place], [place] and [place]. This disclosure is being madepursuant to the Care Everywhere program and may not contain all information available regarding this patient. Last updated 17.[facility] Allergies No known active allergies Medications * Be aware that medications may not be up to date on this document. Alwaysverify current medications with the patient. Medication Sig Dispensed Refills Start Date End Date Status aspirin (ASPIRIN) 81 MG tablet Take 1 (one) tablet by mouth once daily Active [place]-3 Fatty Acids (FISH OIL) 1200 MG Active [...] care, and heating? Not very hard 02/03/2023 [facility] - Occupational [...] place to sleep or slept in a jail (including now)? No 02/03/2023 Sex and Gender Information Value Date Recorded Sex Assigned at Not on file Gender Identity Not on file Sexual Orientation Not on file Last Filed Vital Signs Vital Sign Reading Time Taken Comments Blood Pressure 144/67 02/08/2023 8:04 AM INDIAN NANNY Pulse 71 02/08/2023 8:04 AM INDIAN NANNY Temperature 36.6 C (97.9 F) 02/08/2023 8:04 AM INDIAN NANNY Respiratory Rate 20 02/07/2023 12:20 PM INDIAN NANNY Oxygen Saturation 94% 02/08/2023 8:04 AM INDIAN NANNY Inhaled Oxygen Concentration - - Weight 104.3 kg (230 lb) 02/03/2023 6:11 AM INDIAN NANNY Height 180.3 cm (5' 11 ) 02/03/2023 6:11 AM INDIAN NANNY Body Mass Index 32.08 02/03/2023 6:11 AM INDIAN NANNY Plan of Treatment Health Maintenance Due Date Last Done Comments MEDICARE AWV 12 MONTHS 1945 HEPATITIS C SCREENING 09/18/1963 DTAP/TDAP/TD VACCINES (1 - Tdap) 1964 PNEUMOCOCCAL VACCINE 50+ (1 of 1 - PCV) 09/23/1995 ZOSTER VACCINE (1 of 2) 09/23/1995 Respiratory Syncytial Virus (RSV) Vaccine Pt: or over 60 yrs (1 - 1-dose 75+ series) 2020 COVID-19 VACCINE (3 - 2023-2 5 season) 2023 05/08/2020, 04/11/2020 INFLUENZA VACCINE (#1) 2023 0, 12/22/2017 DEPRESSION SCREENING 03/06/2024 HEPATITIS B VACCINE Aged Out No longe r eligible based on patient's age to complete this topic HIB VACCINE Aged Out No longer eligi ble based on patient's age to complete this topic HPV VACCINE Aged Out No longer eligi ble based on patient's age to complete this topic MENINGOCOCCAL (Group B) VACCINE Aged Out No longer eligible b ased on patient's age to complete this topic MENINGOCOCCAL VACCINE Aged Out No thaddeus yessy eligible based on patient's age to complete this topic Medical Devices Implanted Type Area Studio Model Device Identifier Shelf Expiration Date Model / Serial / Lot Plug Ocl 7mm Mvp Gian Vasc [facility] V03 Strl Implanted:Qty: 1 on 02/03/2023 by Santiago Ruelas MD at [facility] Left: Arterial [employer] 06/03/2024 MVP-[id number] / / [id number] Advance Directives * Full Code (Latest Code Status on File) Date Activated Date Inactivated Comments 02/03/2023 7:07 AM 02/08/2023 1:53 PM Care Teams Senior Games Technician Relationship Specialty Start Date End Date Geraldo Bearden MD [address] [place] [address] PCP - General 01/05/10
--- OUTSIDE RECORDS SUMMARY | 2024-04-16 10:24 | XMS_ITS | Clinical Summary ---
Author Organization [facility] [place] [address] [facility] [address] [place] [address] Care Team Providers Care Dietetic Intern Name Role Phone Geraldo Bearden MD Primary Care Provider [phone] Allergies No known active allergies Medications candesartan [...] Diagnosed Date Coronary artery disease invo lving [place] coronary artery of [place] heart without angina pectoris 05/21/2019 Encounters Date Type Department Care Team Description 02/05/2024 10:00 AM SUPERVISOR RIDES Office Visit [facility] Cardiology [address] [place] [address] Anurag Anne MD Coronary artery disease involving [place] coronary artery of [place] heart without angina pectoris (Primary Dx) from Last 3 Months Social History Tobacco Use Types Packs/Day Years Used Date Smoking Tobacco: Former Smokeless Tobacco: Never Tobacco Cessation:Counseling Given: Not Answered Sex and Gender Information Value Date Recorded Sex Assigned at Not on file Legal Sex Male 4:16 PM SUPERVISOR RIDES Gender Identity Not on file Sexual Orientation Not on file Obstetrics History Last Filed Vital Signs Vital Sign Reading Time Taken Comments Blood Pressure 130/70 02/05/2024 9:59 AM SUPERVISOR RIDES Pulse 89 02/05/2024 9:59 AM SUPERVISOR RIDES Temperature - - Respiratory Rate - - Oxygen Saturation 90% 02/05/2024 9:59 AM SUPERVISOR RIDES Inhaled Oxygen Concentration - - Weight 98.4 kg (217 lb) 02/05/2024 9:59 AM SUPERVISOR RIDES Height 180.3 cm (5' 11 ) 02/05/2024 9:59 AM SUPERVISOR RIDES Body Mass Index 30.27 02/05/2024 9:59 AM SUPERVISOR RIDES Plan of Treatment Health Maintenance Due Date Last Done Comments Depression Screening 1945 Fall Risk Assessment 1945 Hepatitis C Screening 1945 DTaP/Tdap/Td Vaccine (1 - Tdap) 1956 Hepatitis B Screening 09/23/1963 Well Visit 65+ 2010 Pneumococcal vaccine 65+ (2 of 2 - PPSV23 or PCV20) 02/05/2020 02/04/2019 Influenza Vaccine (#1) 2023 12/27/2018, 2017 Zoster Vaccine Completed 04/24/2019, 02/04/2019 Abdominal Aortic Aneurysm (AAA) Screen Completed , 02/03/2023 Insurance MEDICARE MEDICARE [facility] MEDICARE SUPPLEMENT Care Teams Dietetic Intern Relationship Specialty Start Date End Date Geraldo Bearden MD [address] [place] [address] INTERNAL MEDICINE [place], [place] [id number] PCP - General Internal Medicine 03/05/19
--- OUTSIDE RECORDS SUMMARY | 2024-04-16 10:24 | XMS_ITS | Continuity of Care Document ---
Author Organization [facility] Address [address] [place] [address] Phone Care Team Providers Care Mergers And Acquisitions Consultant Name Role Phone Taylor OD, Layo Unavailable Unavailable Procedures Procedure Date Optic Nerve Topography Optic Nerve Topography Office/outpatient Visit, Est Frames Deluxe Progressive Lens, Polycarb Tint Photochromatic, Polycarb 9 Anti-reflective Coating Polycarb Lens Per Lens Eye Exam & Treatment Refraction Optic Nerve Topography Optic Nerve Topography Visual Field Examination(s) Office/outpatient Visit, Est Office/outpatient Visit, Est Fundus Photography W/ Report Visual Field Examination(s) Office/outpatient Visit, Est Optic Nerve Topography Optic Nerve Topography Advance Directives Directive Yes / No Effective Date File Name No Information Encounters Encounter Description Practice Location Reason(s) For Visit Diagnoses Date Provider Providers Copied on Encounter [facility], [address], [place], [place], [address], [place] tel:[phone] [facility] No Information Dec- 5-201 0 Taylor OD Layo. [address] , [address], [place], [address], [place]. tel:[phone] Referring Provider: Layo Taylor OD A, [address], [place], [address]. tel:[phone] Office/outpat ient Visit, Est [facility], [address], [place], [place], [address], [place] tel:[phone] SEC [facility] No Information 0-201 0 Taylor OD Layo. [address] , [address], [place], [address], [place]. tel:[phone] [facility], [address], [place], [place], [address], [place] tel:[phone] SEC [facility] No Information 1200 [address] [employer] . [address] [facility], [address], [place], [place], [address], [place]. tel:[phone] Referring Provider: Layo Taylor OD A, [facility], [place], [address]. tel:[phone] g Provider: Angie Mistry, [address] [place], [address]. tel:[phone] [facility], [address], [place], [place], [address], [place] tel:[phone] SEC [facility] No Information 0-200 9 Taylor OD Layo. [address] , [address], [place], [address], [place]. tel:[phone] [facility], [address], [place], [place], [address], [place] tel:[phone] SEC [facility] No Information 0-200 9 Taylor OD Layo. [address] , [address], [place], [address], [place]. tel:[phone] Referring Provider: Layo Taylor OD A, [address], [place], [address]. tel:[phone] [facility], [address] [place] [address] [address], [place], [place], [address], tel:[phone] SEC [facility] No Information 3-200 9 Taylor OD Layo. [address] [place], [place] [address]ate [address], [address], [place], [place], [facility], [place]. tel:[phone] Referring Provider: Layo Taylor OD A, [facility] [address], [place], [facility]. tel:[phone] Office/outpat ient Visit, [facility], [address], [place], [place], [address], tel:[phone] SEC [facility] No Information 5-200 8 Taylor OD Layo. [address] [place], [place] [address]ate [address], [address], [place], [place], [facility], [place]. tel:[phone] Office/outpat ient Visit, [facility] [address] [place] [address] [address], [place], [place], [address], [place] tel:[phone] SEC [facility] No Information 8-200 7 Taylor OD Layo. [address] [place], [place] [address]ate [address], [address], [place], [address], [place]. tel:[phone] Referring Provider: Layo Taylor OD A, [facility] [address], [place], [address]. tel:[phone] [facility], [address] [place] [address] [address], [place], [place], [address], [place] tel:[phone] SEC [facility] No Information 3-200 7 Taylor OD Layo. [address] [place], [place] [address]ate [address], [address], [place], [place], [facility], [place]. tel:[phone] Referring Provider: Layo Taylor OD A, [address], [place], [address]. tel:[phone] Office/outpat ient Visit, Est [facility], [address] [place] [address] [address], [place], [place], [address], tel:[phone] SEC [facility] [place] No Information Apr-2 5-200 7 Taylor OD Layo. [address] [place] [address] , [address], [place], [address], [place]. tel:[phone] [facility], [address], [place], [place], [address], [place] tel:[phone] SEC [facility] No Information Dec-2 9-200 6 Taylor OD Layo. [address] [place] [address] , [address], [place], [address], [place]. tel:[phone] Referring Provider: Layo Campo, [address] [place], [place] [address]ate [place] [address], [place], [address]. tel:[phone] Family History Family Member Type Diagnosis Age At Onset No Information Payers Payer name Insurance type Covered republican ID Authoriza tion(s) No Information Social History Type Description Quantity Date Captured Comments Sex Male Smoking Status No Information Chief Complaint And Reason For Visit No Information Reason For Referral Reason For Referral No Information History Of Present Illness Encounter Date Complaint History Of Prese nt Illness No Information Functional Status Date Functional Assessmen t No Information Instructions Date Instruction Additional Infor mation No Information Assessments Type Assessment Date No Information Patient Care Teams Name Effective Dates (start - stop) Status Members No Information
== END 2024-04-16 09:32 | disposition home or self-care (01) ==
PROVIDERS: PCP Internal Medicine; Visit Provider Internal Medicine
DX: Z12.2 Encounter for screening for malignant neoplasm of respiratory organs (principal); Z87.891 Personal history of nicotine dependence; R91.8 Other nonspecific abnormal finding of lung field
CPT/HCPCS: 71271

== ENCOUNTER 2024-06-25 13:20 | Outpatient (CLI) | payer MEDICARE, SELFPAY ==
[2024-06-25 13:59] LABS: Alanine Aminotransferase 25 U/L (6-50); Albumin Level 4.2 g/dL (3.5-5.1); Alkaline Phosphatase 62 U/L (38-126); Anion Gap 7 mmol/L (4-12); Aspartate Amino Transferase 24 U/L (17-59); Bilirubin,Total 0.7 mg/dL (0.2-1.3); Blood Urea Nitrogen 9 mg/dL (9-20); Calcium 9.3 mg/dL (8.4-10.2); Carbon Dioxide 29 mmol/L (22-30); Chloride 105 mmol/L (98-107); Cholesterol 182 mg/dL (0-200); Estimated Glomerular Filt Rate > 60; Glucose 108 mg/dL (65-110); HDL Direct 53 mg/dL; Potassium 4.1 mmol/L (3.4-5.0); Sodium 141 mmol/L (137-145); Triglycerides 171 mg/dL (<150)
[2024-06-25 14:10] LABS: LDL Cholesterol Direct 85 mg/dL
[2024-06-25 14:24] LABS: Hemoglobin A1C 5.8 % (<5.7)
[2024-06-25 14:35] LABS: Vitamin D 25 Hydroxy 47.5 ng/mL
--- OUTSIDE RECORDS SUMMARY | 2024-06-25 15:08 | XMS_ITS | Clinical Summary ---
Author Organization [facility] Address [address] [place] [address] Care Team Providers Care Supervisor Spinning Name Role Phone Geraldo Bearden MD Primary Care Provider [phone] Source Comments [facility],non-owned Affiliates and Associated Physician Practices is amultiple site organization consisting of ambulatory clinics and hospital sitesin [place], [place], [place] and [place]. This disclosure is being madepursuant to the Care Everywhere program and may not contain all information available regarding this patient. Last updated 17.[facility] Allergies No known active allergies Medications * Be aware that medications may not be up to date on this document. Alwaysverify current medications with the patient. aspirin (ASPIRIN) 81 MG tablet Take 1 (one) tablet by mouth once daily Active [place]-3 Fatty Acids (FISH OIL) 1200 MG Active multivitamin daily (THERAGRAN) tablet Take 1 tablet by mouth daily with food Active Cyanocobalamin 1000 MCG Take 1,000 mcg by mouth once daily Active tamsulosin (Flomax) 0.4 MG capsule Take 1 (one) capsule by mouth at bedtime 3 Active acetaminophen (Tylenol) 500 MG tablet Take 2 (two) tablets by mouth every 6 hours Maximum allowable Acetaminophen amount = 4 Grams (4000 mg) / 24 hours. 3 Active rosuvastatin (Crestor) 10 MG tablet Take 1 (one) tablet by mouth once daily 3 Active lidocaine (Lidoderm) 5 % patch Apply 2 (two) patches to skin every 24 hours Apply patch to most painful area and remove after 12 hours. May reapply a new patch 12 hours later. 3 Active folic acid (Folvite) 1 MG tablet Take 1 (one) tablet by mouth once daily 3 Active polyethylene glycol 3350 (Miralax) 17 g packet Take 17 (seventeen) g by mouth once daily 3 Active senna-docusate (Senokot-S) 8.6-50 MG tablet Take 1 (one) tablet by mouth 2 times daily 3 Active melatonin 3 MG tablet Take 1 (one) tablet by mouth at bedtime 3 Active thiamine (Vitamin B-1) 100 MG tablet Take 1 (one) tablet by mouth once daily 3 Active oxyCODONE, immediate release, (Roxicodone) 5 MG tabletIndicati ons:Acute Pain Take 1 (one) tablet by mouth every 4 hours as needed Reasons: Acute Pain 3 Active Active Problems Problem Noted Date Diagnosed Date Acute pain due to injury 02/05/2023 Hypoxia 02/05/2023 Fracture of multiple ribs of left side 3 Impaired mobility and ADLs 02/05/2023 Acute blood loss anemia 02/05/2023 Laceration of spleen, initial encounter 02/04/20 23 Immunizations Immunization Administration Dates Next Due HIB-PRP-T 4 DOSE 02/08/2023(Deferred: Patient Re fused) INFLUENZA VACCINE, ADJUVANTE D, QUADR. (FLUAD QUADRIVALENT; 65Y+) (AIIV4) 02/08/2023(Deferred: Patient Refused) INFLUENZA VACCINE, HIGH-DOSE , QUADR. (FLUZONE HIGH-DOSE QUADRIVALENT; 65Y+), 0.7 ML (HD-IIV4) 11/27/2019,12/22/2017 MENINGOCOCCAL ACWY (MCV4P) VAC IM 02/08/2023(Def erred: Patient Refused) Meningococcal B Recombinant 2 Dose, [...] care, and heating? Not very hard 02/03/2023 [facility] [place] [facility] Occupat ional Health - Occupational Stress [...] place to sleep or slept in a residential (including now)? No 02/03/2023 Sex and Gender Information Value Date Recorded Sex Assigned at Not on file Legal Sex Male 6:56 PM DIRECTOR OF AVIATION Gender Identity Not on file Sexual Orientation Not on file Last Filed Vital Signs Vital Sign Reading Time Taken Comments Blood Pressure 144/67 02/08/2023 8:04 AM DIRECTOR OF AVIATION Pulse 71 02/08/2023 8:04 AM DIRECTOR OF AVIATION Temperature 36.6 C (97.9 F) 02/08/2023 8:04 AM DIRECTOR OF AVIATION Respiratory Rate 20 02/07/2023 12:20 PM DIRECTOR OF AVIATION Oxygen Saturation 94% 02/08/2023 8:04 AM DIRECTOR OF AVIATION Inhaled Oxygen Concentration - - Weight 104.3 kg (230 lb) 02/03/2023 6:11 AM DIRECTOR OF AVIATION Height 180.3 cm (5' 11 ) 02/03/2023 6:11 AM DIRECTOR OF AVIATION Body Mass Index 32.08 02/03/2023 6:11 AM DIRECTOR OF AVIATION Plan of Treatment Health Maintenance Due Date [...] - 2023-2 5 season) 2023 05/08/2020, 04/11/2020 DEPRESSION SCREENING 03/06/2024 INFLUENZA VACCINE (Season Ended) 2024 11/27/2019, 12/22/2017 HEPATITIS B VACCINE Aged Out No longe r eligible based on patient's age to complete this topic HIB VACCINE Aged Out No longer eligi ble based on patient's age to complete this topic HPV VACCINE Aged Out No longer eligi ble based on patient's age to complete this topic MENINGOCOCCAL (Group B) VACCINE SHARED DECISION-MAKING Aged Out No longer eligible based on patient's age to complete this topic MENINGOCOCCAL GROUPS A/C/Y/W VACCINE Aged Out No longer eligible b ased on patient's age to complete this topic Medical Devices Implanted Type Area Reinsurance Accountant Device Identifier Shelf Expiration Date Model / Serial / Lot Plug Ocl 7mm Mvp Gian [facility] V03 Strl Implanted:Qty: 1 on 02/03/2023 by Santiago Ruelas MD at [facility] Left: Arterial [employer] 06/03/2024 MVP-7Q / / [id number] Insurance MEDICARE ANTHEM MEDICARE Member Subscriber Plan / Payer (Ef fective 2010-Present) Name:JacoboHeriberto perea Member ID:[id number] Relation to Subscriber:Self Name:Heriberto Jacobo Subscriber ID:[id number] Payer ID:Not on file Group ID:Not on file Type:Medicare Address: [place] [phone] ANTHEM SELF PAY NO INSURANCE Member Subscriber Plan / Payer (Ef fective for All Dates) Name:Donnell Heriberto Kameron Member ID:Not on file Relation to Subscriber:Not on file Name:HERIBERTO JACOBO Subscriber ID:Not on file (Home) Address: [address] [place] [address] Payer ID:Not on file Group ID:Not on file Type:Self Pay Address: [place], [place] MEDICARE Member Subscriber Plan / Payer (Ef fective for All Dates) Name:Heriberto Jacobo Member ID:[id number] Relation to Subscriber:Self Name:Heriberto Jacobo Subscriber ID:[id number] Payer ID:Not on file Group ID:Not on file Type:Medicare Address: [place] [phone] MEDICARE Member Subscriber Plan / Payer (Ef fective for All Dates) Name:Heriberto Jacobo Member ID:[id number] Relation to Subscriber:Self Name:Heriberto Jacobo Subscriber ID:[id number] Payer ID:Not on file Group ID:Not on file Type:Medicare Address: [place] [phone] Advance Directives * Full Code (Latest Code Status on File) Date Activated Date Inactivated Comments 02/03/2023 7:07 AM 02/08/2023 1:53 PM Care Teams Supervisor Spinning Relationship Specialty Start Date End Date Geraldo Bearden MD [address] [place] [address] PCP - General 01/05/10
--- OUTSIDE RECORDS SUMMARY | 2024-06-25 15:08 | XMS_ITS | Clinical Summary ---
Author Organization [facility] Address [address] [place] [address] Care Team Providers Care General Maintenance Technician Name Role Phone Geraldo Bearden MD Primary Care Provider [phone] Social History Tobacco Use Types Packs/Day Years [...] 2023 12/09/2022, 12/06/2021, 06/25/2021, Additional history exists Zoster Vaccines Completed 04/24/2019, 02/04/2019 Pneumococcal Vaccine: 50+ Years Completed 03/08/2023, 02/05/2020, 02/04/2019 RSV Immunization [...] patient's age to complete this topic Insurance [facility] MEDICARE Care Teams General Maintenance Technician Relationship Specialty Start Date End Date Geraldo Bearden MD [address] [place] [id number] PCP - General INTERNAL MEDICINE 06/09/23
--- OUTSIDE RECORDS SUMMARY | 2024-06-25 15:08 | XMS_ITS | Clinical Summary ---
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 05/21/2019 Social History Tobacco Use Types Packs/Day Years Used Date Smoking Tobacco: Former Smokeless Tobacco: Never Tobacco Cessation:Counseling Given: Not Answered Sex and Gender Information Value Date Recorded Sex Assigned at Not on file Legal Sex Male 4:16 PM ELECTRIC SOLDERER Gender Identity Not on file Sexual Orientation Not on file Obstetrics History Last Filed Vital Signs Vital Sign Reading Time Taken Comments Blood Pressure 130/70 02/05/2024 9:59 AM ELECTRIC SOLDERER Pulse 89 02/05/2024 9:59 AM ELECTRIC SOLDERER Temperature - - Respiratory Rate - - Oxygen Saturation 90% 02/05/2024 9:59 AM ELECTRIC SOLDERER Inhaled Oxygen Concentration - - Weight 98.4 kg (217 lb) 02/05/2024 9:59 AM ELECTRIC SOLDERER Height 180.3 cm (5' 11 ) 02/05/2024 9:59 AM ELECTRIC SOLDERER Body Mass Index 30.27 02/05/2024 9:59 AM ELECTRIC SOLDERER Plan of Treatment Health Maintenance Due Date Last Done Comments Depression Screening 1945 Fall Risk Assessment 1945 Hepatitis C Screening 1945 DTaP/Tdap/Td Vaccine (1 - Tdap) 1956 Hepatitis B Screening 09/23/1963 Well Visit 65+ 2010 Pneumococcal vaccine 65+ (2 of 2 - PPSV23) 02/05/2020 02/04/2019 Influenza Vaccine (#1) 2023 12/27/2018, 2017 Zoster Vaccine Completed 04/24/2019, 02/04/2019 Abdominal Aortic Aneurysm (AAA) Screen Completed , 02/03/2023 Insurance MEDICARE MEDICARE [facility] MEDICARE SUPPLEMENT Care Teams Six Horse Hitch Driver Relationship Specialty Start Date End Date Geraldo Bearden MD [address] [facility] [address] [place] [address] [place] [address] PCP - General Internal Medicine 03/05/19
--- OUTSIDE RECORDS SUMMARY | 2024-06-25 15:08 | XMS_ITS | Continuity of Care Document ---
Author Organization [facility] Address [address] [place] [address] Phone Care Team Providers Care Outsole Molder Name Role Phone Taylor OD, Layo Unavailable [...] Diagnoses Date Provider Providers Copied on Encounter [facility], [address], [place], [place], [address], [place] tel:[phone] [facility] No Information Dec- 5-201 0 Taylor OD Layo. [address] , [address], [place], [address], [place]. tel:[phone] Referring Provider: Layo Taylor OD A, [address], [place], [address]. tel:[phone] Office/outpat ient Visit, Est [facility], [address], [place], [place], [address], [place] tel:[phone] SEC [facility] No Information 0-201 0 Taylor OD Layo. [address] , [address], [place], [address], [place]. tel:[phone] [facility], [address], [place], [place], [address], [place] tel:[phone] SEC [facility] No Information 1200 [address] [employer] . [address] [facility], [address], [place], [place], [address], [place]. tel:[phone] Referring Provider: Layo Taylor OD A, [facility], [place], [address]. tel:[phone] g Provider: Angie Mistry, [address] [place], [address]. tel:[phone] [facility], [address], [place], [place], [address], [place] tel:[phone] SEC [facility] No Information 0-200 9 Taylor OD Layo. [address], [place], [address], [place]. tel:[phone] [facility], [address], [place], [place], [address], [place] tel:[phone] SEC [facility] No Information 0-200 9 Taylor OD Layo. [address] , [address], [place], [address], [place]. tel:[phone] Referring Provider: Layo Taylor OD A, [address], [place], [address]. tel:[phone] [facility], [address] [place] [address] [address], [place], [place], [address], tel:[phone] SEC [facility] No Information 3-200 9 Taylor OD Layo. [address] [place], [place] [address]ate [address], [address], [place], [place], [facility], [place]. tel:[phone] Referring Provider: Layo Taylor OD A, [facility] [address], [place], [place], [facility]. tel:[phone] Office/outpat ient Visit, [facility], [address], [place], [place], [address], tel:[phone] SEC [facility] No Information 5-200 8 Taylor OD Layo. [address] [place], [place] [address]ate [address], [address], [place], [place], [facility], [place]. tel:[phone] Office/outpat ient Visit, [facility] [place], [address] [place] [address] [address], [place], [place], [address], [place] tel:[phone] SEC [facility] No Information 8-200 7 Taylor OD Layo. [address] [place], [place] [address]ate [address], [address], [place], [address], [place]. tel:[phone] Referring Provider: Layo Taylor OD A, [facility] [address], [place], [address]. tel:[phone] [facility], [address] [place] [address] [address], [place], [place], [address], [place] tel:[phone] SEC [facility] No Information 3-200 7 Taylor OD Layo. [address] [place], [place] [address]ate [address], [address], [place], [facility], [place]. tel:[phone] Referring Provider: Layo Taylor OD A, [address], [place], [address]. tel:[phone] Office/outpat ient Visit, Est [facility], [address] [place] [address] [address], [place], [place], [address], tel:[phone] [facility] [place] No Information Apr-2 5-200 7 Taylor OD Layo. [address] [place] [address] , [address], [place], [address], [place]. tel:[phone] [facility], [address], [place], [place], [address], [place] tel:[phone] SEC [facility] No Information Dec-2 9-200 6 Taylor OD Layo. [address] [place] [address] , [address], [place], [address], [place]. tel:[phone] Referring Provider: Layo Campo, [address] [place], [place] [address]ate [place] [address], [place], [address]. tel:[phone] Family History Family Member Type Diagnosis Age At Onset No Information Payers Payer name Insurance type Covered alliance party ID Authoriza tion(s) No Information Social History [...]
--- OUTSIDE RECORDS SUMMARY | 2024-06-25 15:08 | XMS_ITS | Referral Summary ---
Author Organization [facility] [place] [address] Address [address] [place] [address] Care Team Providers Care Sand And Gravel Plant Operator Name Role Phone Geraldo Bearden MD Primary Care Provider [phone] Allergies No known active allergies Medications candesartan [...] Diagnosed Date Coronary artery disease invo lving sun'aq coronary artery of sun'aq heart without angina pectoris 05/21/2019 Social History Tobacco Use Types Packs/Day Years Used Date Smoking Tobacco: Former Smokeless Tobacco: Never Tobacco Cessation:Counseling Given: Not Answered Sex and Gender Information Value Date Recorded Sex Assigned at Not on file Legal Sex Male 4:16 PM PRODUCT ADVISOR Gender Identity Not on file Sexual Orientation Not on file Last Filed Vital Signs Vital Sign Reading Time Taken Comments Blood Pressure 130/70 02/05/2024 9:59 AM PRODUCT ADVISOR Pulse 89 02/05/2024 9:59 AM PRODUCT ADVISOR Temperature - - Respiratory Rate - - Oxygen Saturation 90% 02/05/2024 9:59 AM PRODUCT ADVISOR Inhaled Oxygen Concentration - - Weight 98.4 kg (217 lb) 02/05/2024 9:59 AM PRODUCT ADVISOR Height 180.3 cm (5' 11 ) 02/05/2024 9:59 AM PRODUCT ADVISOR Body Mass Index 30.27 02/05/2024 9:59 AM PRODUCT ADVISOR Plan of Treatment Not on file Insurance MEDICARE MEDICARE [facility] MEDICARE SUPPLEMENT Care Teams Sand And Gravel Plant Operator Relationship Specialty Start Date End Date Geraldo Bearden MD [address] [facility] [address] [place] [address] PCP - General Internal Medicine 03/05/19
== END 2024-06-25 13:21 | disposition home or self-care (01) ==
PROVIDERS: PCP Internal Medicine; Visit Provider Internal Medicine
DX: E55.9 Vitamin D deficiency, unspecified (principal); I10 Essential (primary) hypertension; E78.2 Mixed hyperlipidemia; R73.03 Prediabetes
CPT/HCPCS: 36415; 80053; 80061; 82306; 83036

== ENCOUNTER 2024-10-17 01:48 | Inpatient (IN) | payer MEDICARE, SELFPAY ==
[2024-10-17] VITALS (16 sets, daily range): BP systolic 102–142; BP diastolic 46–92; PULSE 77–109; RESP 14–20; TEMP 35.6–37.1; O2SAT 93–100; BMI 31.5
--- NOTE | ~2024-10-17 | XR_ITS ---
XR chest 1V portable 10/17/2024 03:19 Indication: Left rib pain Procedure: AP view of the chest Comparison: 04/13/2022 Findings: Heart size normal. Bibasilar infiltrates may represent atelectasis or less likely pneumonia . No significant effusion. No pneumothorax. No acute osseous abnormality. There is atherosclerosis of the aorta. Impression: 1: Bibasilar infiltrates may represent atelectasis or less likely pneumonia. No significant change co mpared with 04/13/2022. Reviewed, dictated and finalized at location A. Impression: 1: Bibasilar infiltrates may represent atelectasis or less likely pneumonia. No significant change compared with 04/13/2022.
--- NOTE | ~2024-10-17 | XR_ITS ---
CHEST RADIOGRAPH CLINICAL HISTORY: sepsis . COMPARISON: 10/17/2024 TECHNIQUE: Single portable view of the chest. FINDINGS The cardiomediastinal silhouette is unremarkable. The lungs are clear. IMPRESSION: No focal infiltrate or effusion. Reviewed, dictated and finalized at location A.
--- NOTE | ~2024-10-17 | XR_ITS ---
EXAMINATION: XR surgery orthopedic DATE: 10/17/2024 15:30 CDT INDICATION: L IT NAIL . TECHNIQUE: 3 fluoroscopic images of the left hip were obtained during left intertrochanteric nail miko cement. Fluoroscopy exposure time was 32.6 seconds. Air Kerma 17.01 mGy. DAP 3.37 mGym2. COMPARISON: X-ray left hip and pelvis 10/17/2024 FINDINGS/IMPRESSION: Fluoroscopic documentation of left hip intertrochanteric nail placement. Please refer to the operativ e note for complete procedural details. Reviewed, dictated and finalized at location K.
--- NOTE | ~2024-10-17 | XR_ITS ---
XR hip LT 2V w AP pelvis 10/17/2024 02:27 Indication: Left hip pain after fall Procedure: 4 views left hip Comparison: No prior studies for comparison. Findings: Left femoral intertrochanteric fracture with slight varus angulation. Pelvic rings intact. Lower lumbar spondylosis present. Impression: 1: Mildly displaced left femoral intertrochanteric fracture with slight varus angulation. Reviewed, dictated and finalized at location A. Impression: 1: Mildly displaced left femoral intertrochanteric fracture with slight varus a ngulation.
--- OUTSIDE RECORDS SUMMARY | 2024-10-17 02:11 | XMS_ITS | Clinical Summary ---
Author Organization [facility] Address [address] [place] [id number] Care Team Providers Care Felt Washing Machine Tender Name Role Phone Geraldo Bearden MD Primary Care Provider Social History Tobacco Use Types Packs/Day Years [...] patient's age to complete this topic Insurance [facility] MEDICARE Care Teams Felt Washing Machine Tender Relationship Specialty Start Date End Date Geraldo Bearden MD [address] [place] [id number] PCP - General INTERNAL MEDICINE 06/09/23
--- OUTSIDE RECORDS SUMMARY | 2024-10-17 02:11 | XMS_ITS | Clinical Summary ---
Author Organization [facility] [address] Address [address] [place] [address] Care Team Providers Care Change Management Administrator Name Role Phone Geraldo Bearden MD Primary Care Provider [phone] Allergies No known active allergies Medications candesartan [...] Diagnosed Date Coronary artery disease invo lving [place] coronary artery of [place] heart without angina pectoris 05/21/2019 Social History Tobacco Use Types Packs/Day Years Used Date Smoking Tobacco: Former Smokeless Tobacco: Never Tobacco Cessation:Counseling Given: Not Answered Sex and Gender Information Value Date Recorded Sex Assigned at Not on file Legal Sex Male 4:16 PM MECHANICAL DESIGN ENGINEER Gender Identity Not on file Sexual Orientation Not on file Obstetrics History Last Filed Vital Signs Vital Sign Reading Time Taken Comments Blood Pressure 130/70 02/05/2024 9:59 AM MECHANICAL DESIGN ENGINEER Pulse 89 02/05/2024 9:59 AM MECHANICAL DESIGN ENGINEER Temperature - - Respiratory Rate - - Oxygen Saturation 90% 02/05/2024 9:59 AM MECHANICAL DESIGN ENGINEER Inhaled Oxygen Concentration - - Weight 98.4 kg (217 lb) 02/05/2024 9:59 AM MECHANICAL DESIGN ENGINEER Height 180.3 cm (5' 11) 02/05/2024 9:59 AM MECHANICAL DESIGN ENGINEER Body Mass Index 30.27 02/05/2024 9:59 AM MECHANICAL DESIGN ENGINEER Plan of Treatment Health Maintenance Due Date Last Done Comments Depression Screening 1945 Fall Risk Assessment 1945 Hepatitis C Screening 1945 DTaP/Tdap/Td Vaccine (1 - Tdap) 1956 Hepatitis B Screening 09/23/1963 Well Visit 65+ 2010 Pneumococcal vaccine 65+ (2 of 2 - PCV20 or PCV21) 02/05/2020 02/04/2019 Influenza Vaccine (#1) 2024 12/27/2018, 2017 Zoster Vaccine Completed 04/24/2019, 02/04/2019 Abdominal Aortic Aneurysm (AAA) Screen Completed , 02/03/2023 Insurance MEDICARE MEDICARE [facility] MEDICARE SUPPLEMENT Care Teams Change Management Administrator Relationship Specialty Start Date End Date Geraldo Bearden MD [address] [facility] [address] [facility] [address] [place] [address] PCP - General Internal Medicine 03/05/19
--- OUTSIDE RECORDS SUMMARY | 2024-10-17 02:11 | XMS_ITS | Clinical Summary ---
Author Organization [facility] Address [address] [facility] [place] [address] Care Team Providers Care Cruise Counselor Name Role Phone Geraldo Bearden MD Primary Care Provider [phone] Source Comments [facility],non-owned Affiliates and Associated Physician Practices is amultiple site organization consisting of ambulatory clinics and hospital sitesin [place], [place], [place] and [place]. This disclosure is being madepursuant to the Care Everywhere program and may not contain all information available regarding this patient. Last updated 17.[facility] Allergies No known active allergies Medications * Be aware that medications may not be up to date on this document. Alwaysverify current medications with the patient. aspirin (ASPIRIN) 81 MG tablet Take 1 (one) tablet by mouth once daily Active Imperial-3 Fatty Acids (FISH OIL) 1200 MG Active [...] care, and heating? Not very hard 02/03/2023 [facility] Occupat ional Health - Occupational Stress [...] place to sleep or slept in a alf (including now)? No 02/03/2023 Sex and Gender Information Value Date Recorded Sex Assigned at Not on file Legal Sex Male 6:56 PM APPLICATION SPEC Gender Identity Not on file Sexual Orientation Not on file Last Filed Vital Signs Vital Sign Reading Time Taken Comments Blood Pressure 144/67 02/08/2023 8:04 AM APPLICATION SPEC Pulse 71 02/08/2023 8:04 AM APPLICATION SPEC Temperature 36.6 C (97.9 F) 02/08/2023 8:04 AM APPLICATION SPEC Respiratory Rate 20 02/07/2023 12:20 PM APPLICATION SPEC Oxygen Saturation 94% 02/08/2023 8:04 AM APPLICATION SPEC Inhaled Oxygen Concentration - - Weight 104.3 kg (230 lb) 02/03/2023 6:11 AM APPLICATION SPEC Height 180.3 cm (5' 11) 02/03/2023 6:11 AM APPLICATION SPEC Body Mass Index 32.08 02/03/2023 6:11 AM APPLICATION SPEC Plan of Treatment Health Maintenance Due Date [...] 05/08/2020, 04/11/2020 DEPRESSION SCREENING 03/06/2024 INFLUENZA VACCINE (#1) 2024 , 12/22/2017 HEPATITIS B VACCINE Aged Out No [...] this topic Medical Devices Implanted Type Area Power Bender Operator Device Identifier Shelf Expiration Date Model / Serial / Lot Plug Ocl 7mm Mvp Gian Vasc [facility] V03 Strl Implanted:Qty: 1 on 02/03/2023 by Santiago Ruelas MD at [facility] Left: Arterial [employer] 06/03/2024 MVP-[id number] / / [id number] Insurance MEDICARE [employer] MEDICARE Member Subscriber Plan / Payer (Ef fective 2010-Present) Name:Jacobo, Heriberto Melo Member ID:[id number] Relation to Subscriber:Self Name:Heriberto Jacobo Subscriber ID:[id number] Payer ID:Not on file Group ID:Not on file Type:Medicare Address: [place] [id number] [place] [id number] ANTHEM SELF PAY NO INSURANCE Member Subscriber Plan / Payer (Ef fective for All Dates) Name:Heriberto Jacobo Member ID:Not on file Relation to Subscriber:Not on file Name:HERIBERTO JACOBO Subscriber ID:Not on file (Home) Address: [address] [place] [address] Payer ID:Not on file Group ID:Not on file Type:Self Pay Address: [place], [place] MEDICARE Member Subscriber Plan / Payer (Ef fective for All Dates) Name:Heriberto Jacobo Member ID:[id number] Relation to Subscriber:Self Name:Heriberto Jacobo Subscriber ID:[id number] Payer ID:Not on file Group ID:Not on file Type:Medicare Address: [place] [address] MEDICARE Member Subscriber Plan / Payer (Ef fective for All Dates) Name:Heriberto Jacobo Member ID:[id number] Relation to Subscriber:Self Name:Heriberto Jacobo Subscriber ID:[id number] Payer ID:Not on file Group ID:Not on file Type:Medicare Address: [place] [id number] Advance Directives * Full Code (Latest Code Status on File) Date Activated Date Inactivated Comments 02/03/2023 7:07 AM 02/08/2023 1:53 PM Care Teams Cruise Counselor Relationship Specialty Start Date End Date Geraldo Bearden MD [address] [place] [id number] PCP - General 01/05/10
--- NOTE | 2024-10-17 03:06 | ED.FALL ---
HPI - Fall General Chief Complaint: Fall Stated Complaint: LLE PAIN S/P FALL Time Seen by Provider: 10/17/24 02:00 History of Present Illness HPI Narrative: 79-year-old male with a past medical history including hypertension, prediabetes, aortic stenosis. Patient presents to the emergency department after a mechanical fall at home. He states he was going up to go the bathroom when he lost balance and tripped fell to his left side and landed on his hip. Not able to get up off the ground. States that he is having difficulty moving his left leg secondary to pain. No head trauma or loss of consciousness. He is otherwise well-appearing not any acute distress. States he has only in pain and denies any other systemic symptoms. He was otherwise in his normal state of health corroborated by family members were present at bedside. Pain is localized to left lateral aspect of the proximal femur, no distal pain is able to wiggle his toes and have good sensation. No significant external signs of trauma. He states he previously fractures some left-sided ribs and they are bothering him today and he thinks he may have fallen on them as well but denies any chest discomfort or shortness of breath. Pain is worse with palpation. Related Data Home Medications ?Medication ?Instructions ?Recorded ?Confirmed ?Last Taken ?Type cyanocobalamin (vitamin B-12) 1,000 mcg PO DAILY 02/08/23 07/02/24 02/14/24 History 1,000 mcg tablet folic acid 1 mg tablet 1 mg PO DAILY 02/08/23 07/02/24 02/14/24 History omega-3 fatty acids 1,000 mg 3,000 mg PO DAILY 02/08/23 07/02/24 02/14/24 History capsule Aspir-81 81 mg PO DAILY 02/05/24 07/02/24 02/14/24 History Vitamin C BYMOUTH 07/02/24 07/02/24 Unknown History cholecalciferol (vitamin D3) 125 125 mcg PO DAILY 07/02/24 07/02/24 Unknown History mcg (5,000 unit) capsule Allergies Allergy/AdvReac Type Severity Reaction Status Date / Time No Known Allergies Allergy Verified 07/02/24 10:24 Review of Systems Review of Systems: As reviewed above in HPI [facility] Past Medical History Medical History Colon polyp Impacted cerumen of both ears Pre-diabetes Embolism of splenic artery UTI (urinary tract infection) BMI 32.0-32.9,adult Encounter for routine adult health examination without abnormal findings Encounter for routine adult health examination with abnormal findings BMI 30.0-30.9,adult Chronic seasonal allergic rhinitis Colon cancer screening Elevated PSA Encounter for Medicare annual wellness exam BMI 31.0-31.9,adult Orthostatic hypotension Closed fracture of right ankle Hypersomnia Fracture of shaft of fibula (11/03/17) Change in mole Carotid bruit Abnormal tandem gait test Peripheral neuropathy Hypokalemia History of CVA in adulthood Skin lesion of face Pedal edema Elevated glucose Other specified abnormal findings of blood chemistry Symptoms of cerebrovascular accident (CVA) Elevated homocysteine Vitamin D deficiency Lung nodules Actinic keratosis Vascular disease Chest pain Abnormal finding of blood chemistry, unspecified Aortic stenosis Occipital cerebral infarction On correction drug therapy Fuchs' corneal dystrophy Hearing loss Gait disorder Left-sided weakness Murmur Hx of nicotine dependence Hyperlipidemia HTN (hypertension), benign Family History Family History Father Hypertension Mother Hypertension Social History Social History Smoking status: Former smoker Tobacco type: cigarettes Smokeless tobacco user: other Smoking end date: 03/06/99 Additional smoking assessment comments: CURRENTLY USES NICOTINE GUM Alcohol intake: current Drinks per week: 7 Substance use: current Substance use type: does not use Lack of Transportation: No Lack of Food: Never True Current Housing: I Have Housing Concerned About Future Housing: No Difficulty Paying Gas/Electric Bills: No Difficulty Paying for Meds: No Currently Unemployed: No Education: Master's Degree or Higher Difficulty w/ Childcare or Family Care: No Living arrangements: with family Occupation/Education: retired Gender identity (if verbalized by the patient): Male Spiritual care concerns: No Exam Narrative: GENERAL: [Well-appearing, well-nourished, and in no acute distress.] HEAD: [Normocephalic, atraumatic.] EYES: [PERRLA and EOMI.] ENT: Nares clear, no rhinorrhea or epistaxis. Mucous membranes moist. NECK: Supple. CHEST: Clear to auscultation, no respiratory distress, very minimal tenderness to palpation over the left lower ribs without any step-offs, deformities or crepitus. HEART: [Regular rate and rhythm]. No murmur heard. [Normal peripheral pulses.] ABDOMEN: [Soft, nondistended], [nontender], [No rigidity or guarding] EXTREMITIES: Tenderness to palpation over the left lateral proximal femur, no overlying skin changes. Difficulty raising leg against gravity secondary to pain. Distal neuro vasculature intact, 2+ symmetric pulses, able to wiggle the toes and move the knee and ankle. No midline spinal tenderness. SKIN: Warm, dry, no rash. NEURO: [No focal deficits]. Alert and oriented [x3.] PSYCH: [Normal mood and affect.] Course Vital Signs Vital signs: Vital Signs Temperature 36.6 C 10/17/24 01:47 Pulse Rate 81 10/17/24 01:47 Respiratory Rate 18 10/17/24 01:47 Blood Pressure 125/69 10/17/24 01:47 Pulse Oximetry 94 10/17/24 01:47 Oxygen Delivery Room Air 10/17/24 01:47 Temperature 36.6 C 10/17/24 01:47 Pulse Rate 89 10/17/24 06:16 Respiratory Rate 18 10/17/24 06:16 Blood Pressure 130/69 10/17/24 06:16 Pulse Oximetry 95 10/17/24 06:16 Oxygen Delivery Room Air 10/17/24 01:47 MDM - Fall MDM Narrative Medical decision making narrative: 79-year-old male with a past medical history including hypertension, prediabetes, aortic stenosis. Patient presents to the emergency department after a mechanical fall at home. He states he was going up to go the bathroom when he lost balance and tripped fell to his left side and landed on his hip. Not able to get up off the ground. States that he is having difficulty moving his left leg secondary to pain. No head trauma or loss of consciousness. He is otherwise well-appearing not any acute distress. States he has only in pain and denies any other systemic symptoms. He was otherwise in his normal state of health corroborated by family members were present at bedside. Pain is localized to left lateral aspect of the proximal femur, no distal pain is able to wiggle his toes and have good sensation. No significant external signs of trauma. He states he previously fractures some left-sided ribs and they are bothering him today and he thinks he may have fallen on them as well but denies any chest discomfort or shortness of breath. Pain is worse with palpation. Exam shows tenderness to palpation over the left lateral proximal femur, no overlying skin changes. Difficulty raising leg against gravity secondary to pain. Distal neuro vasculature intact, 2+ symmetric pulses, able to wiggle the toes and move the knee and ankle. No midline spinal tenderness. He is hemodynamically stable. Reassuring vital signs. Exam raises suspicion for hip fracture and less likely rib fracture. X-rays of the chest and left hip with pelvis views obtained. Basic laboratory studies obtained as well as a EKG. He was given morphine and Zofran for symptoms and re-evaluated. Placed on alarm security or surveillance monitor. Patient has a left intertrochanteric hip fracture. I discussed the case with the on-call orthopedic surgeon Dr. Gaitan who will be on consult after admission to the hospitalist team. Patient given several rounds of pain medications with improvement. Chest x-ray without any acute findings or concerning fractures. Laboratory studies unremarkable. Discussed the case with the hospitalist for admission and patient was accepted to a medical-surgical bed at this time. Family members made aware of the plan. Medical Records Attestation: I reviewed the patient's medical records. Lab Data Attestation: I reviewed the patient's lab results. 10/17/24 03:23 10/17/24 03:23 Labs: Lab Results 10/17/24 Range/Units 03:23 WBC 7.7 (4.5-10.0) K/mm3 RBC 4.20 L (4.6-6.20) M/mm3 Hgb 13.3 L (14.0-18.0) g/dL Hct 40.8 L (42.0-52.0) % MCV 97.1 (80-100) fl MCH 31.7 (26-34) pg MCHC 32.6 (32-36) g/dl RDW 12.6 (11.5-14.5) % Plt Count 191 (150-375) k/mm3 MPV 10.9 H (7.4-10.4) fl Immature Gran % (Auto) 0.7 H (0-0.5) % Neut % (Auto) 55.5 (45.5-73.1) % Lymph % (Auto) 29.2 (18.3-44.2) % Page % (Auto) 9.6 H (2.6-8.5) % Eos % (Auto) 4.7 H (0-4.4) % Baso % (Auto) 0.3 (0.2-1.2) % Lymph # (Auto) 2.24 (0.9-3.2) K/mm3 Page # (Auto) 0.7 H (0.1-0.6) K/mm3 Eos # (Auto) 0.4 H (0-0.3) K/mm3 Baso # (Auto) 0.0 (0.0-0.1) K/mm3 Abs Immat Gran (auto) 0.05 H (0.00-0.031) K/mm3 Absolute Neuts (auto) 4.3 (1.3-6.7) K/mm3 Absolute Nucleated RBC 0.000 (0.0-0.012) K/mm3 Nucleated RBC % 0.0 (0.0-0.2) % PT 13.1 (11.1-14.7) Seconds INR 1.0 APTT 27.6 (22.3-36.8) Seconds Sodium 138 (137-145) mmol/L Potassium 3.5 (3.4-5.0) mmol/L Chloride 105 (98-107) mmol/L Carbon Dioxide 26 (22-30) mmol/L Anion Gap 7 (4-12) mmol/L BUN 15 D (9-20) mg/dL Creatinine 0.73 (0.7-1.3) mg/dL Estim Creat Clear Calc 87 ml/min Estimated GFR > 60 (59 - ) Glucose 113 H (65-110) mg/dL Calcium 9.2 (8.4-10.2) mg/dL Total Bilirubin 0.3 (0.2-1.3) mg/dL AST 24 (17-59) U/L ALT 20 (6-50) U/L Alkaline Phosphatase 57 (38-126) U/L Total Protein 7.4 (6.3-8.2) g/dL Albumin 4.2 (3.5-5.1) g/dL Blood Type A Positive Antibody Screen Negative Imaging Data Attestation: I personally reviewed and interpreted this imaging study as follows: My impression: Left hip fracture intertrochanteric Discharge Plan Discharge Clinical Impression: Closed intertrochanteric fracture of left femur, Ground-level fall Patient Disposition: Still a Patient Condition: Stable
--- NOTE | 2024-10-17 03:08 | ECG_ITS ---
Test Date: 2024-10-17 03:30:21 Measurements Intervals [place] Rate: 80 P: 28 MA: 236 QRS: 21 QRSD: 89 T: 47 QT: 393 QTc: 453 Interpretive Statements SINUS RHYTHM WITH FIRST DEGREE AV BLOCK BASELINE ARTIFACT- I, II, III, AVR, AVL, AVF, V1 BORDERLINE ECG No previous ECG available for comparison Electronically Signed On 10-17-2024 06:09:04 CDT by Donny Gallego D.O.
[2024-10-17] MEDS: MORPHINE SULFATE (*CRX) 4 MG/ML INJ IV PUSH (03:24)
[2024-10-17] MEDS: ONDANSETRON INJ 4 MG/2 ML VIAL IV PUSH (03:24)
[2024-10-17 03:49] LABS: Hematocrit 40.8 % (42.0-52.0); Hemoglobin 13.3 g/dL (14.0-18.0); Immature Granulocyte Percent A 0.7 % (0-0.5); Lymphocytes Absolute Auto 2.24 K/mm3 (0.9-3.2); Mean Corpuscular HGB Conc 32.6 g/dl (32-36); Mean Corpuscular Hemoglobin 31.7 pg (26-34); Mean Corpuscular Volume 97.1 fl (80-100); Nucleated Red Blood Cells Absolute Auto 0.000 K/mm3 (0.0-0.012); Nucleated Red Blood Cells Perc 0.0 % (0.0-0.2); Platelet Count Result 191 k/mm3 (150-375); Red Blood Count 4.20 M/mm3 (4.6-6.20); White Blood Count 7.7 K/mm3 (4.5-10.0)
[2024-10-17 03:56] LABS: Alanine Aminotransferase 20 U/L (6-50); Albumin Level 4.2 g/dL (3.5-5.1); Alkaline Phosphatase 57 U/L (38-126); Anion Gap 7 mmol/L (4-12); Aspartate Amino Transferase 24 U/L (17-59); Bilirubin,Total 0.3 mg/dL (0.2-1.3); Blood Urea Nitrogen 15 mg/dL (9-20); Calcium 9.2 mg/dL (8.4-10.2); Carbon Dioxide 26 mmol/L (22-30); Chloride 105 mmol/L (98-107); Estimated CRCL calculation 87 ml/min; Estimated Glomerular Filt Rate > 60; Glucose 113 mg/dL (65-110); Potassium 3.5 mmol/L (3.4-5.0); Sodium 138 mmol/L (137-145); Total Protein 7.4 g/dL (6.3-8.2)
[2024-10-17 04:00] LABS: INR 1.0; Prothrombin Time 13.1 Seconds (11.1-14.7)
[2024-10-17 04:01] LABS: Partial Thromboplastin Time 27.6 Seconds (22.3-36.8)
[2024-10-17] MEDS: HYDROmorphone HCL INJ (*CRX) 1 MG/ML SYR IV PUSH (04:43)
--- NOTE | 2024-10-17 06:36 | ADMGEN ---
This patient, Ruperto Clements, was admitted to [facility] Room 307-01. Patient/family oriented to hospital policies and general routines including ID bracelet, bed and alarms, visiting hours, pain management, procedures, bathroom and other care routines, personal items, smoking policy, room service/diet, and visiting hours. Information on how to activate the Rapid Response Team has been discussed. Patient/Family are encouraged to report perceived risks to care and to ask questions if they do not understand what they are told or what they should do.
[2024-10-17] MEDS: HYDROmorphone HCL INJ (*CRX) 1 MG/ML SYR 0.5 MG IV PUSH (06:57)
--- NOTE | 2024-10-17 07:36 | P.HP_ITS ---
H&P: HPI History of Present Illness Date/Time: 10/17/24 07:36 Chief Complaint: Fall Narrative: Ruperto Clements is a 78-year-old male with a pmhx of aortic stenosis, HTN, and prediabetes who presents to the hospital after a mechanical fall that occurred at home. Patient states that he lost his balance the night before admission and fell onto his left side. Denies hitting his head or losing consciousness. Rep orts that he was unable to get up off of the ground. When he presented to the ER, he was found to have a hip fracture on imaging. Upon presentation, he does not appear to be in any acute distress and denies any other systemic symptoms. Reports intermittent left hip pain with movement, but is able to flex/extend knee and ankle without difficulties. Pain is localized to the lateral aspect of the left proximal femur, no overlying skin changes or external signs of trauma. Denies any chest pain, shortness of breath, nausea/vomiting or loss of bowel/bladder. Ortho consulted regarding close fracture of left femur. ED workup: 36.6 ? C, 81 heart rate, 18 RR, 125/69, 94% room air WBC 7.7, HGB 13.3, HCT 40.8, PLT 191, PT 13.1, INR 1.0, APTT 27.6, sodium 138, potassium 3.5, BUN 15, creatinine 0.73, glucose 113, LFT are WNL Chest XR:Bibasilar infiltrates may represent atelectasis or less likely pneumonia. No significant change compared with 04/13/2022. Hip and pelvis XR: Mildly displaced left femoral intertrochanteric fracture with slight varus angulation. Review of Systems Review of Systems: All systems reviewed & are unremarkable except as noted in HPI and below [facility] Past Medical History Medical History Colon polyp Impacted cerumen of both ears Pre-diabetes Embolism of splenic artery UTI (urinary tract infection) BMI 32.0-32.9,adult Encounter for routine adult health examination without abnormal findings Encounter for routine adult health examination with abnormal findings BMI 30.0-30.9,adult Chronic seasonal allergic rhinitis Colon cancer screening Elevated PSA Encounter for Medicare annual wellness exam BMI 31.0-31.9,adult Orthostatic hypotension Closed fracture of right ankle Hypersomnia Fracture of shaft of fibula (11/03/17) Change in mole Carotid bruit Abnormal tandem gait test Peripheral neuropathy Hypokalemia History of CVA in adulthood Skin lesion of face Pedal edema Elevated glucose Other specified abnormal findings of blood chemistry Symptoms of cerebrovascular accident (CVA) Elevated homocysteine Vitamin D deficiency Lung nodules Actinic keratosis Vascular disease Chest pain Abnormal finding of blood chemistry, unspecified Aortic stenosis Occipital cerebral infarction On half-way drug therapy Fuchs' corneal dystrophy Hearing loss Gait disorder Left-sided weakness Murmur Hx of nicotine dependence Hyperlipidemia HTN (hypertension), benign Family History Family History Father Hypertension Mother Hypertension Social History Social History Smoking status: Former smoker Tobacco type: cigarettes Smokeless tobacco user: other Smoking end date: 03/06/99 Additional smoking assessment comments: CURRENTLY USES NICOTINE GUM Alcohol intake: current Drinks per week: 7 Substance use: never Substance use type: does not use Lack of Transportation: No Lack of Food: Never True Current Housing: I Have Housing Concerned About Future Housing: No Difficulty Paying Gas/Electric Bills: No Difficulty Paying for Meds: No Currently Unemployed: No Education: Bachelor's Degree Difficulty w/ Childcare or Family Care: No Living arrangements: with family Occupation/Education: retired Gender identity (if verbalized by the patient): Male Spiritual care concerns: No Meds Home Medications and Allergies Home Medications ?Medication ?Instructions ?Recorded ?Confirmed ?Type multivitamin 1 cap PO DAILY #90 caps 02/04/19 10/17/24 Rx cyanocobalamin (vitamin B-12) 1,000 mcg PO DAILY 02/08/23 10/17/24 History 1,000 mcg tablet folic acid 1 mg tablet 1 mg PO DAILY 02/08/23 10/17/24 History omega-3 fatty acids 1,000 mg 3,000 mg PO DAILY 02/08/23 10/17/24 History capsule tamsulosin 0.4 mg capsule 0.4 mg PO HS #30 caps 02/16/23 10/17/24 Rx Aspir-81 81 mg PO DAILY 02/05/24 10/17/24 History rosuvastatin 20 mg tablet See Rx Instructions .Route 04/28/25 08/14/25 Rx .COMPLEX #90 tabs cholecalciferol (vitamin D3) 125 125 mcg PO DAILY 07/02/24 10/17/24 History mcg (5,000 unit) capsule olmesartan 5 mg tablet See Rx Instructions .Route 09/04/24 10/17/24 Rx .COMPLEX #60 tabs Allergies Allergy/AdvReac Type Severity Reaction Status Date / Time No Known Allergies Allergy Verified 07/02/24 10:24 Vital Signs Vital Signs - 24 hr 10/17/24 01:47 10/17/24 03:23 10/17/24 04:44 Temperature 97.9 F Pulse Rate 81 78 88 Respiratory Rate 18 18 18 Blood Pressure 125/69 129/63 141/81 H Pulse Oximetry 94 98 97 Oxygen Delivery Room Air 10/17/24 06:16 10/17/24 06:39 Temperature 97.5 F L Pulse Rate 89 102 H Respiratory Rate 18 19 Blood Pressure 130/69 119/92 H Pulse Oximetry 95 95 Oxygen Delivery Exam Narrative: Gen - well appearing male in no acute respiratory distress who is nontoxic- appearing lying semi recumbent in bed HEENT - normocephalic. Atraumatic. Pupils equal round and reactive. Ex traocular motions intact. Nares patent. Oropharynx was clear. Moist mucous membranes. No facial asymmetry. Neck - neck was supple. No dominant adenopathy, thyromegaly or masses. Chest - lungs are clear to auscultation bilaterally. No wheezes or crackles. CV - heart was regular rate and rhythm. S1-S2. No murmurs gallops or rubs. Abd - abdomen was soft. Nontender. Nondistended. Positive bowel sounds. No organomegaly or masses. Ext - TTP over LL proximal femur w/o overlying skin changes. Difficulty with raising of leg 2/2 pain. Able to wiggle toes, extend/flex knee and ankle. No clu bbing, cyanosis or edema. 2+ DP pulses bilaterally. Neuro - patient is alert and oriented x4. Strength is 5/5 in both upper and lower extremities. Cranial nerves 2-12 are intact. Speech is clear. Psych - normal mood and affect. Patient is pleasant and cooperative. Skin - warm and dry. No rashes noted. H&P: Results Labs Labs: Short CBC 10/17/24 Range/Units 03:23 WBC 7.7 (4.5-10.0) K/mm3 Hgb 13.3 L (14.0-18.0) g/dL Hct 40.8 L (42.0-52.0) % Plt Count 191 (150-375) k/mm3 BMP 10/17/24 03:23 Sodium 138 Potassium 3.5 Chloride 105 Carbon Dioxide 26 BUN 15 D Creatinine 0.73 Glucose 113 H Calcium 9.2 Liver Function 10/17/24 Range/Units 03:23 Total Bilirubin 0.3 (0.2-1.3) mg/dL AST 24 (17-59) U/L ALT 20 (6-50) U/L Alkaline Phosphatase 57 (38-126) U/L Albumin 4.2 (3.5-5.1) g/dL Assessment and Plan Assessment and plan (1) Closed intertrochanteric fracture of left femur: Qualifiers: Encounter type: initial encounter Fracture alignment: displaced Qualified Code(s): S72.142A - Displaced intertrochanteric fracture of left femur, initial encounter for closed fracture Code(s): S72.142A - Displaced intertrochanteric fracture of left femur, initial encounter for closed fracture Status: Acute Assessment and Plan: * Mechanical fall at home after patient tripped and fell onto his left side, denies striking his head or losing consciousness * Hip and pelvis XR: Mildly displaced left femoral intertrochanteric fracture with slight varus angulation. * Ortho consulted surgical in non operative treatment options or offered * Patient desires operative treatment at this time * Plan for intramedullary nail fixation of the left intertrochanteric hip fracture * NPO until surgery * Consider treatment, pain control, mechanical DVT prophylaxis * Morphine 2mg IV q4hr, [place] 5-325 * On schedule for L Intertrochanteric Nail @ 1500 * Will restart home medications after operation (2) Ground-level fall: Code(s): W18.30XA - Fall on same level, unspecified, initial encounter Status: Acute Assessment and Plan: * See above (3) Hyperlipidemia: Qualifiers: Hyperlipidemia type: mixed hyperlipidemia Qualified Code(s): E78.2 - Mixed hyperlipidemia Code(s): E78.5 - Hyperlipidemia, unspecified Status: Acute Assessment and Plan: * Will restart at home medications after procedure (4) HTN (hypertension), benign: Code(s): I10 - Essential (primary) hypertension Status: Acute Assessment and Plan: * Stable, non-medicated * 119/92 Quality VTE Prophylaxis VTE prophylaxis: mechanical ordered
[2024-10-17] MEDS: HYDROcodone/acetaminophen (*CRX) 5-325 MG TABLET 1 TAB PO ×2 (08:42→18:11)
[2024-10-17] MEDS: MORPHINE SULFATE (*CRX) 2 MG/ML INJ IV PUSH (09:57)
--- NOTE | 2024-10-17 10:31 | PM.CNOR ---
Assessment and Plan Assessment and plan (1) Closed intertrochanteric fracture of left femur: Qualifiers: Encounter type: initial encounter Fracture alignment: displaced Qualified Code(s): S72.142A - Displaced intertrochanteric fracture of left femur, initial encounter for closed fracture Code(s): S72.142A - Displaced intertrochanteric fracture of left femur, initial encounter for closed fracture Status: Acute Assessment and Plan: New patient evaluation for chief complaint History, physical exam and radiographs reviewed with the patient. Discussed the condition, nature, etiology and course of natural history with the patient. Treatment options including surgical and nonoperative treatment were reviewed. Risks and benefits of each as well as alternatives reviewed. The patient's questions were answered. Conservative treatment ice, pain control, mechanical DVT prophylaxis. Patient desires operative treatment. Will await medical stabilization and then proceed with intramedullary nail. Plan Discussed nonoperative and operative treatment options with the patient. Risks and benefits of each as well as alternatives were reviewed. All of the patient's questions were answered. The risks of surgery reviewed including but not limited to: Neurovascular damage, wound complication, infection, blood clot, pulmonary embolus, stroke, myocardial infarction, and anesthetic risks up to and including . Continued pain and possible dysfunction were explained. Specific risks of the procedure including later recurrence of deformity. No guarantees were offered. If hardware used, discussed risk of failure/ breakage and possible need for removal. If complications occur, the patient understands the need for further treatment, possible further surgery. Patient verbalizes understanding and wishes to proceed. PLAN: Intramedullary nail fixation left intertrochanteric hip fracture. History of Present Illness HPI Consult date: 10/17/24 Requesting physician: Kyaw Thrasher MD Chief complaint: Left fip fracture, Ground level fall Narrative: 79-year-old gentleman who lives at home and is an independent ambulator lost his balance last night and fell injuring the left hip. Presented to the emergency room and found to have hip fracture. Admitted for further care. No prior problems with the hip. Denies numbness or tingling. Denies head neck or back injury at the time of fall. Denies loss of consciousness. He does have a history of lower leg edema on the left side. Also cardiac history with aortic stenosis. Review of Systems Constitutional: Constitutional: Denies fever(s) Eyes: Eyes: Denies blurry vision ENT: Reports Normal hearing present Cardiovascular: Cardiovascular: Denies chest pain and Denies dyspnea Respiratory: Respiratory: Denies dyspnea and Denies wheezing Gastrointestinal: Gastrointestinal: Denies abdominal pain Genitourinary: Genitourinary: Denies urinary urgency Musculoskeletal: Musculoskeletal: Reports as per HPI and Denies numbness Integumentary/Breasts: Skin/Breast: Denies changing lesions and Denies sores Neurologic: Reports Normal hearing present, Denies behavioral changes, Denies confusion, Denies numbness and Denies convulsions Psychiatric: Psychiatric: Denies behavioral changes, Denies confusion and Denies hallucinations Endocrine: Endocrine: Denies heat intolerance Hematologic/Lymphatic: Hematologic/Lymphatic: Denies easy bleeding Allergic/Immunologic: Allergic/Immunologic: Denies wheezing PMFSH Past Medical History Medical History Colon polyp Impacted cerumen of both ears Pre-diabetes Embolism of splenic artery UTI (urinary tract infection) BMI 32.0-32.9,adult Encounter for routine adult health examination without abnormal findings Encounter for routine adult health examination with abnormal findings BMI 30.0-30.9,adult Chronic seasonal allergic rhinitis Colon cancer screening Elevated PSA Encounter for Medicare annual wellness exam BMI 31.0-31.9,adult Orthostatic hypotension Closed fracture of right ankle Hypersomnia Fracture of shaft of fibula (11/03/17) Change in mole Carotid bruit Abnormal tandem gait test Peripheral neuropathy Hypokalemia History of CVA in adulthood Skin lesion of face Pedal edema Elevated glucose Other specified abnormal findings of blood chemistry Symptoms of cerebrovascular accident (CVA) Elevated homocysteine Vitamin D deficiency Lung nodules Actinic keratosis Vascular disease Chest pain Abnormal finding of blood chemistry, unspecified Aortic stenosis Occipital cerebral infarction 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 Fuchs' corneal dystrophy Hearing loss Gait disorder Left-sided weakness Murmur Hx of nicotine dependence Hyperlipidemia HTN (hypertension), benign Family History Family History Father Hypertension Mother Hypertension Social History Social History Smoking status: Former smoker Tobacco type: cigarettes Smokeless tobacco user: other Smoking end date: 03/06/99 Additional smoking assessment comments: CURRENTLY USES NICOTINE GUM Alcohol intake: current Drinks per week: 7 Substance use: never Substance use type: does not use Lack of Transportation: No Lack of Food: Never True Current Housing: I Have Housing Concerned About Future Housing: No Difficulty Paying Gas/Electric Bills: No Difficulty Paying for Meds: No Currently Unemployed: No Education: Bachelor's Degree Difficulty w/ Childcare or Family Care: No Living arrangements: with family Occupation/Education: retired Gender identity (if verbalized by the patient): Male Spiritual care concerns: No Meds Home Medications and Allergies Home Medications ?Medication ?Instructions ?Recorded ?Confirmed ?Type multivitamin 1 cap PO DAILY #90 caps 02/04/19 10/17/24 Rx cyanocobalamin (vitamin B-12) 1,000 mcg PO DAILY 02/08/23 10/17/24 History 1,000 mcg tablet folic acid 1 mg tablet 1 mg PO DAILY 02/08/23 10/17/24 History omega-3 fatty acids 1,000 mg 3,000 mg PO DAILY 02/08/23 10/17/24 History capsule tamsulosin 0.4 mg capsule 0.4 mg PO HS #30 caps 02/16/23 10/17/24 Rx Aspir-81 81 mg PO DAILY 02/05/24 10/17/24 History rosuvastatin 20 mg tablet See Rx Instructions .Route 07/01/24 10/17/24 Rx .COMPLEX #90 tabs cholecalciferol (vitamin D3) 125 125 mcg PO DAILY 07/02/24 10/17/24 History mcg (5,000 unit) capsule olmesartan 5 mg tablet See Rx Instructions .Route 09/04/24 10/17/24 Rx .COMPLEX #60 tabs Allergies Allergy/AdvReac Type Severity Reaction Status Date / Time No Known Allergies Allergy Verified 07/02/24 10:24 Vital Signs Vital Signs - 24 hr 10/17/24 01:47 10/17/24 03:23 10/17/24 04:44 Temperature 97.9 F Pulse Rate 81 78 88 Respiratory Rate 18 18 18 Blood Pressure 125/69 129/63 141/81 H Pulse Oximetry 94 98 97 Oxygen Delivery Room Air 10/17/24 06:16 10/17/24 06:39 Temperature 97.5 F L Pulse Rate 89 102 H Respiratory Rate 18 19 Blood Pressure 130/69 119/92 H Pulse Oximetry 95 95 Oxygen Delivery Exam Const: General: No confusion Orientation/consciousness: No confusion HENMT: Head: normal to inspection, normocephalic and atraumatic Eyes: Conjunctivae: conjunctivae normal Sclera: sclerae normal Neck: Neck: supple and nontender Chest: Chest palpation & inspection: normal inspection of the chest Resp: Effort & Inspection: normal respiratory effort and no audible wheezes Cardio: Rate: regular rate Rhythm: regular rhythm : General: Yes deferred Skin: General skin exam: no rashes or lesions noted Neuro: General: No confusion Extrem: General: capillary refill normal Right upper extremity: normal to inspection Left upper extremity: normal to inspection Right lower extremity: normal to inspection, hip/thigh Details: normal to inspection and normal ROM; no tenderness and no swelling, knee Details: no tenderness and no swelling, ankle Details: normal ROM (Able to flex and extend the ankle) and foot Details: vascular exam Details: dorsalis pedis pulse present and normal capillary refill, tendon exam (Moves all toes) and motor-sensory exam Details: light-touch normal Location: in all toes Left lower extremity: hip/thigh Details: tenderness Location: of the hip Location: laterally and anteriorly, swelling Location: of the hip and abnormal ROM Details: pain with passive ROM (Full motion deferred secondary to fracture) Details: with flexion, with internal rotation and with external rotation, ankle (no calf tenderness) Details: normal ROM (Able to flex/ extend ankle) and foot Details: toes with normal ROM (Moves all toes), vascular exam Details: dorsalis pedis pulse present and normal capillary refill and motor-sensory exam light-touch normal in all toes; no tenderness Psych: Affect: normal affect Results Labs 10/17/24 03:23 10/17/24 03:23 Labs: Abnormal lab results 10/17/24 Range/Units 03:23 RBC 4.20 L (4.6-6.20) M/mm3 Hgb 13.3 L (14.0-18.0) g/dL Hct 40.8 L (42.0-52.0) % MPV 10.9 H (7.4-10.4) fl Immature Gran % (Auto) 0.7 H (0-0.5) % [place] % (Auto) 9.6 H (2.6-8.5) % Eos % (Auto) 4.7 H (0-4.4) % [place] # (Auto) 0.7 H (0.1-0.6) K/mm3 Eos # (Auto) 0.4 H (0-0.3) K/mm3 Abs Immat Gran (auto) 0.05 H (0.00-0.031) K/mm3 Glucose 113 H (65-110) mg/dL H & H 10/17/24 Range/Units 03:23 Hgb 13.3 L (14.0-18.0) g/dL Hct 40.8 L (42.0-52.0) % Coagulation 10/17/24 Range/Units 03:23 INR 1.0 All other labs normal. Diagnostic results Hip x-ray: image reviewed (Left hip intertrochanteric fracture with angulation.)
--- NOTE | 2024-10-17 10:34 | WPDHPUPDATE1 ---
History and Physical Update Update Date/Time: 10/17/24 10:34 History and Physical has been reviewed, including an updated exam of the patient. There are NO changes in the patient's condition. Risks, benefits, and alternatives have been discussed and questions answered. Patient agrees to proceed with procedure.
--- NOTE | 2024-10-17 13:41 | PM.CNCAR ---
Assessment and Plan Assessment and plan (1) Preop cardiovascular exam: Code(s): Z01.810 - Encounter for preprocedural cardiovascular examination Status: Acute Assessment and Plan: Would consider him low risk for perioperative cardiovascular event for elective noncardiac surgery. Asymptomatic of any acute cardiovascular problems. Do not recommend any cardiac testing that needs to be done prior to proceeding with orthopedic surgery. (2) Aortic stenosis: Qualifiers: Cardiac valve disease etiology: etiology unspecified Qualified Code(s): I35.0 - Nonrheumatic aortic (valve) stenosis Code(s): I35.0 - Nonrheumatic aortic (valve) stenosis Status: Acute Assessment and Plan: Mild aortic stenosis by most recent echocardiogram. He is scheduled to a follow-up surveillance echocardiogram later on this year. History of Present Illness History of Present Illness Consult date/time: 10/17/24 13:41 Requesting physician: Camila Lockett FNP Consult reason: pre-op evaluation Reason For Visit: Left fip fracture, Ground level fall Narrative: Ruperto Clements is a 79-year-old male with mild aortic stenosis coming to the hospital after sustaining a ground level fall. Cardiology has been asked to see him for preoperative risk assessment. This is a patient who follows in our office with Dr. Byrd. He was originally referred to Cardiology for evaluation following an abnormal coronary calcium score. He had stress testing done in 2022 which reportedly was negative. He has also been found to have mild aortic stenosis with most recent echocardiogram showing aortic valve area of 1.6 cm2. Plan is for him to go to the operating room today for intramedullary nail. Patient denies any chest pain, shortness of breath, palpitations, syncope, orthopnea. He does report chronic left ankle swelling. Review of Systems Review of Systems: All systems reviewed & are unremarkable except as noted in HPI and below PMFSH Past Medical History Medical History CON (obstructive sleep apnea) Hypertension Colon polyp Impacted cerumen of both ears Pre-diabetes Embolism of splenic artery UTI (urinary tract infection) BMI 32.0-32.9,adult Encounter for routine adult health examination without abnormal findings Encounter for routine adult health examination with abnormal findings BMI 30.0-30.9,adult Chronic seasonal allergic rhinitis Colon cancer screening Elevated PSA Encounter for Medicare annual wellness exam BMI 31.0-31.9,adult Orthostatic hypotension Closed fracture of right ankle Hypersomnia Fracture of shaft of fibula (11/03/17) Change in mole Carotid bruit Abnormal tandem gait test Peripheral neuropathy Hypokalemia History of CVA in adulthood Skin lesion of face Pedal edema Elevated glucose Other specified abnormal findings of blood chemistry Symptoms of cerebrovascular accident (CVA) Elevated homocysteine Vitamin D deficiency Lung nodules Actinic keratosis Vascular disease Chest pain Abnormal finding of blood chemistry, unspecified Aortic stenosis Occipital cerebral infarction 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 Fuchs' corneal dystrophy Hearing loss Gait disorder Left-sided weakness Murmur Hx of nicotine dependence Hyperlipidemia HTN (hypertension), benign Family History Family History Father Hypertension Mother Hypertension Social History Social History Smoking status: Former smoker Tobacco type: cigarettes Smokeless tobacco user: other Smoking end date: 03/06/99 Additional smoking assessment comments: CURRENTLY USES NICOTINE GUM Alcohol intake: current Drinks per week: 7 Substance use: never Substance use type: does not use Lack of Transportation: No Lack of Food: Never True Current Housing: I Have Housing Concerned About Future Housing: No Difficulty Paying Gas/Electric Bills: No Difficulty Paying for Meds: No Currently Unemployed: No Education: Bachelor's Degree Difficulty w/ Childcare or Family Care: No Living arrangements: with family Occupation/Education: retired Gender identity (if verbalized by the patient): Male Spiritual care concerns: No Meds Home Medications and Allergies Home Medications ?Medication ?Instructions ?Recorded ?Confirmed ?Type multivitamin 1 cap PO DAILY #90 caps 02/04/19 10/17/24 Rx cyanocobalamin (vitamin B-12) 1,000 mcg PO DAILY 02/08/23 10/17/24 History 1,000 mcg tablet folic acid 1 mg tablet 1 mg PO DAILY 02/08/23 10/17/24 History omega-3 fatty acids 1,000 mg 3,000 mg PO DAILY 02/08/23 10/17/24 History capsule tamsulosin 0.4 mg capsule 0.4 mg PO HS #30 caps 02/16/23 10/17/24 Rx Aspir-81 81 mg PO DAILY 02/05/24 10/17/24 History rosuvastatin 20 mg tablet See Rx Instructions .Route 07/01/24 10/17/24 Rx .COMPLEX #90 tabs cholecalciferol (vitamin D3) 125 125 mcg PO DAILY 07/02/24 10/17/24 History mcg (5,000 unit) capsule olmesartan 5 mg tablet See Rx Instructions .Route 09/04/24 10/17/24 Rx .COMPLEX #60 tabs Allergies Allergy/AdvReac Type Severity Reaction Status Date / Time No Known Allergies Allergy Verified 10/17/24 14:15 Vital Signs Vital Signs - 24 hr 10/17/24 01:47 10/17/24 03:23 10/17/24 04:44 Temperature 36.6 C Pulse Rate 81 78 88 Respiratory Rate 18 18 18 Blood Pressure 125/69 129/63 141/81 H Pulse Oximetry 94 98 97 Oxygen Delivery Room Air 10/17/24 06:16 10/17/24 06:39 Temperature 36.4 C L Pulse Rate 89 102 H Respiratory Rate 18 19 Blood Pressure 130/69 119/92 H Pulse Oximetry 95 95 Oxygen Delivery Exam Const: General: comfortable, no acute distress, alert and awake Orientation/consciousness: patient oriented x3 HENMT: Head: normal to inspection Eyes: General: appearance normal, both eyes and all related structures Pupils: Equal, round and reactive pupils present Neck: Neck: normal visual inspection, supple and no JVD Carotids: normal carotid upstroke Resp: Effort & Inspection: normal respiratory effort Auscultation: clear to auscultation bilaterally Cardio: Rate: regular rate Rhythm: regular rhythm Heart sounds: S1 normal heart sound present, S2 normal heart sound present and Murmur heart sound present systolic II/ and at the left sternal border GI: Auscultation: normal bowel sounds Skin: General skin exam: normal color Neuro: General: patient oriented x3 Cranial nerves: Yes Equal, round and reactive pupils present Extrem: General: normal to inspection and edema left Psych: Appearance: grossly normal Mental Status: mental status grossly normal Results Labs and Meds 10/17/24 03:23 10/17/24 03:23 Lab results: Cardiac Enzymes 10/17/24 Range/Units 03:23 AST 24 (17-59) U/L Coagulation 10/17/24 Range/Units 03:23 PT 13.1 (11.1-14.7) Seconds APTT 27.6 (22.3-36.8) Seconds CBC 10/17/24 Range/Units 03:23 WBC 7.7 (4.5-10.0) K/mm3 RBC 4.20 L (4.6-6.20) M/mm3 Hgb 13.3 L (14.0-18.0) g/dL Hct 40.8 L (42.0-52.0) % Plt Count 191 (150-375) k/mm3 Lymph # (Auto) 2.24 (0.9-3.2) K/mm3 [place] # (Auto) 0.7 H (0.1-0.6) K/mm3 Eos # (Auto) 0.4 H (0-0.3) K/mm3 Baso # (Auto) 0.0 (0.0-0.1) K/mm3 Comprehensive Metabolic Panel 10/17/24 Range/Units 03:23 Sodium 138 (137-145) mmol/L Potassium 3.5 (3.4-5.0) mmol/L Chloride 105 (98-107) mmol/L Carbon Dioxide 26 (22-30) mmol/L BUN 15 D (9-20) mg/dL Creatinine 0.73 (0.7-1.3) mg/dL Glucose 113 H (65-110) mg/dL Calcium 9.2 (8.4-10.2) mg/dL AST 24 (17-59) U/L ALT 20 (6-50) U/L Alkaline Phosphatase 57 (38-126) U/L Total Protein 7.4 (6.3-8.2) g/dL Albumin 4.2 (3.5-5.1) g/dL Patient Weight 10/17/24 23:59 Weight 102.5 kg
[2024-10-17] MEDS: ACETAMINOPHEN 500 MG TABLET 1000 MG PO (13:45)
[2024-10-17] MEDS: TRANEXAMIC ACID 1,000MG/ISO100 1,000 MG/100 ML BAG 200 MG IVPB (13:45)
--- NOTE | 2024-10-17 13:47 | WPDANESEPPF ---
Anes - Initial Pre Proc Eval Procedure: Operation Date: 10/17/24 15:00 Proposed Procedures p Left Intertrochanteric Nail - Vinicio Pearson MD Date/Time: 10/17/24 13:47 Surgeon: Reshma Capellan MD Pre Op Diagnosis: Left fip fracture, Ground level fall Patient Data Age: 79 Gender: M Height: 1.8 m Weight: 102.5 kg Last Vital Signs Temp 36.4 C L 10/17/24 06:39 Pulse 102 H 10/17/24 06:39 Resp 19 10/17/24 06:39 BP 119/92 H 10/17/24 06:39 Pulse Ox 95 10/17/24 06:39 O2 Del Method Room Air 10/17/24 01:47 Allergies Allergy/AdvReac Type Severity Reaction Status Date / Time No Known Allergies Allergy Verified 10/17/24 14:15 Home Medications ?Medication ?Instructions ?Recorded ?Confirmed ?Type multivitamin 1 cap PO DAILY #90 caps 02/04/19 10/17/24 Rx cyanocobalamin (vitamin B-12) 1,000 mcg PO DAILY 02/08/23 10/17/24 History 1,000 mcg tablet folic acid 1 mg tablet 1 mg PO DAILY 02/08/23 10/17/24 History omega-3 fatty acids 1,000 mg 3,000 mg PO DAILY 02/08/23 10/17/24 History capsule tamsulosin 0.4 mg capsule 0.4 mg PO HS #30 caps 02/16/23 10/17/24 Rx Aspir-81 81 mg PO DAILY 02/05/24 10/17/24 History rosuvastatin 20 mg tablet See Rx Instructions .Route 07/01/24 10/17/24 Rx .COMPLEX #90 tabs cholecalciferol (vitamin D3) 125 125 mcg PO DAILY 07/02/24 10/17/24 History mcg (5,000 unit) capsule olmesartan 5 mg tablet See Rx Instructions .Route 09/04/24 10/17/24 Rx .COMPLEX #60 tabs Laboratory Tests 10/17/24 03:23 WBC 7.7 K/mm3 (4.5-10.0) RBC 4.20 L M/mm3 (4.6-6.20) Hgb 13.3 L g/dL (14.0-18.0) Hct 40.8 L % (42.0-52.0) MCV 97.1 fl (80-100) MCH 31.7 pg (26-34) MCHC 32.6 g/dl (32-36) RDW 12.6 % (11.5-14.5) Plt Count 191 k/mm3 (150-375) MPV 10.9 H fl (7.4-10.4) Immature Gran % (Auto) 0.7 H % (0-0.5) Neut % (Auto) 55.5 % (45.5-73.1) Lymph % (Auto) 29.2 % (18.3-44.2) [place] % (Auto) 9.6 H % (2.6-8.5) Eos % (Auto) 4.7 H % (0-4.4) Baso % (Auto) 0.3 % (0.2-1.2) Lymph # (Auto) 2.24 K/mm3 (0.9-3.2) [place] # (Auto) 0.7 H K/mm3 (0.1-0.6) Eos # (Auto) 0.4 H K/mm3 (0-0.3) Baso # (Auto) 0.0 K/mm3 (0.0-0.1) Abs Immat Gran (auto) 0.05 H K/mm3 (0.00-0.031) Absolute Neuts (auto) 4.3 K/mm3 (1.3-6.7) Absolute Nucleated RBC 0.000 K/mm3 (0.0-0.012) Nucleated RBC % 0.0 % (0.0-0.2) PT 13.1 Seconds (11.1-14.7) INR 1.0 APTT 27.6 Seconds (22.3-36.8) Sodium 138 mmol/L (137-145) Potassium 3.5 mmol/L (3.4-5.0) Chloride 105 mmol/L (98-107) Carbon Dioxide 26 mmol/L (22-30) Anion Gap 7 mmol/L (4-12) BUN 15 D mg/dL (9-20) Creatinine 0.73 mg/dL (0.7-1.3) Estim Creat Clear Calc 87 ml/min Estimated GFR > 60 (59 - ) Glucose 113 H mg/dL (65-110) Calcium 9.2 mg/dL (8.4-10.2) Total Bilirubin 0.3 mg/dL (0.2-1.3) AST 24 U/L (17-59) ALT 20 U/L (6-50) Alkaline Phosphatase 57 U/L (38-126) Total Protein 7.4 g/dL (6.3-8.2) Albumin 4.2 g/dL (3.5-5.1) Blood Type A Positive Antibody Screen Negative Patient hx anesthesia problems: none Family hx anesthesia problems: none Results Review: All pre-operative results and documents have been reviewed as part of the pre-operative evaluation. [facility] Past Medical History Medical History (Updated 10/17/24 @ 13:50 by Agapito Sheehan DO) CON (obstructive sleep apnea) Hypertension Colon polyp Impacted cerumen of both ears Pre-diabetes Embolism of splenic artery UTI (urinary tract infection) BMI 32.0-32.9,adult Encounter for routine adult health examination without abnormal findings Encounter for routine adult health examination with abnormal findings BMI 30.0-30.9,adult Chronic seasonal allergic rhinitis Colon cancer screening Elevated PSA Encounter for Medicare annual wellness exam BMI 31.0-31.9,adult Orthostatic hypotension Closed fracture of right ankle Hypersomnia Fracture of shaft of fibula (11/03/17) Change in mole Carotid bruit Abnormal tandem gait test Peripheral neuropathy Hypokalemia History of CVA in adulthood Skin lesion of face Pedal edema Elevated glucose Other specified abnormal findings of blood chemistry Symptoms of cerebrovascular accident (CVA) Elevated homocysteine Vitamin D deficiency Lung nodules Actinic keratosis Vascular disease Chest pain Abnormal finding of blood chemistry, unspecified Aortic stenosis Occipital cerebral infarction 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-way drug therapy Fuchs' corneal dystrophy Hearing loss Gait disorder Left-sided weakness Murmur Hx of nicotine dependence Hyperlipidemia HTN (hypertension), benign Family History Family History Father Hypertension Mother Hypertension Social History Social History Smoking status: Former smoker Tobacco type: cigarettes Smokeless tobacco user: other Smoking end date: 03/06/99 Additional smoking assessment comments: CURRENTLY USES NICOTINE GUM Alcohol intake: current Drinks per week: 7 Substance use: never Substance use type: does not use Lack of Transportation: No Lack of Food: Never True Current Housing: I Have Housing Concerned About Future Housing: No Difficulty Paying Gas/Electric Bills: No Difficulty Paying for Meds: No Currently Unemployed: No Education: Bachelor's Degree Difficulty w/ Childcare or Family Care: No Living arrangements: with family Occupation/Education: retired Gender identity (if verbalized by the patient): Male Spiritual care concerns: No Anes - Eval Final PreProcedure Day of Procedure 10/17/24 13:47 Patient weight: obese Heart: regular rate and rhythm Lungs: clear to auscultation Airway: Mallampati scale class II Neurological: alert and oriented Last oral intake: >/= 8 hours ASA classification: III Emergent: no Anesthetic plan: proceed Anesthesia type and monitoring: general LMA and standard monitoring Results Review: All pre-operative results and documents have been reviewed as part of the pre-operative evaluation. Informed Consent: The patient's anesthetic plan and its attendant risks and benefits were discussed with the patient/family/POA. Questions were solicited and answers provided to the satisfaction of the patient/family/POA.
--- NOTE | 2024-10-17 14:44 | P.OP_ITS ---
Procedure Note - Detailed Date of Procedure 10/17/24 Pre-op Diagnosis Left hip intertrochanteric fracture, Ground level fall Post-op Diagnosis Same Procedure Performed Left hip intramedullary hip screw Surgeon Vinicio Pearson MD Behavior Specialist 1st magistrate assistant Anesthesia General Indications 79-year-old independent ambulator lost his balance and fell onto his left hip. Sustained left hip intertrochanteric fracture. Desires operative fixation. Description of Procedure After informed consent the operative extremity was marked in the preoperative holding area. Patient received intravenous antibiotics. The patient was taken to the operativ e room, placed in the supine position, general anesthesia induced by the anesthesia team, and was placed on a fracture table with longitudinal traction applied to the left leg. The hip fracture was reduced to near anatomic position and verified with image intensification. A time-out was performed confirming the patient, site of the surgery and plan. The left lower extremity was prepped and draped sterilely from the knee to the iliac crest region using a ChloraPrep skin solution. Incision was made just proximal to greater trochanter down to the subcutaneous tissues. Hemostasis controlled with electrocautery. Blunt dissection through the fascia to the tip of the greater trochanter. A starter awl was placed at the tip of the greater trochanter into the medullary canal of the femur. This was checked with image intensification and was in good position. Intramedullary guide odalis positioned. A one-step hand reaming done proximally. Intramedullary canal was reamed with a 13 millimeter flexible reamer. Neck angle selected off of preoperative radiographs temp plating. 125 degree 12mm X 20cm Nail opened on the back table and assembled. This was then inserted over the guide odalis to the correct depth. Guide odalis removed. Lag screw was then placed with a stab incision over the lateral femur using a 10 blade knife. Blunt dissection down to the lateral side of the bone. Soft tissue protectors placed. Guide pin placed in the center center position of the femoral head and measured. 95 millimeter x 10.5 millimeter lag screw placed to correct depth and verified with image intensifi cation. Traction released from the leg and compression of the fracture performed with the external compression device. Proximal locking placed. Distal locking of the nail then performed. Stab incision made lateral distal thigh. Blunt dissection down lateral side of the femur. Soft tissue protector placed. Femur drilled from lateral to medial through the distal nail. Distal femur measured and the appropriate size screw placed. Image intensification confirmed the placement through the locking hole. Final image intensification confirmed reduction of the fracture and placement of the hardware. Wounds then thoroughly irrigated with antibiotic solution. Fascia repaired with 0 Vicryl interrupted suture. Subcutaneous tissue repaired with 00 Vicryl interrupted suture and skin repaired with marquez. Sterile dressings applied. Patient then awoke from anesthesia, extubated, taken to recovery room stable condition. All sponge, needle and instrument counts correct at the end the case. Implants Arthrex trochanteric nail 12 mm x 20 cm 125 degree with 95 mm lag screw and 40 mm locking screw Estimated Blood Loss 100 Drains No Packing No Pathology None sent Complications None Condition Stable Disposition PACU [facility] Billing Surgery - Charge Forward: Surgery Billing ([id number])
[2024-10-17] MEDS: BUPIVACAINE/EPINEPHRINE 0.5% 50 ML VIAL 30 ML INFILTRATE (15:15)
[2024-10-17] MEDS: ceFAZolin 2 GM in SODIUM CHLORIDE 0.9% IV 50 ML 100 ML IVPB ×2 (15:15→23:18)
[2024-10-17] MEDS: LACTATED RINGERS 1,000 ML 30 ML IV CONT (16:22)
[2024-10-17] MEDS: fentaNYL CITRATE INJ (*CRX) 100 MCG/2 ML VIAL 25 MCG IV PUSH ×2 (16:40→16:44)
[2024-10-17] MEDS: SENNA/DOCUSATE SODIUM TABLET 2 TAB PO (18:11)
[2024-10-17] MEDS: IBUPROFEN IV 800 MG/200 ML 800 MG/200 ML BAG 400 MG IVPB (18:12)
--- NOTE | 2024-10-17 20:24 | PCRCNOTE ---
Patient stated that he does not wish to use CPAP while here.
[2024-10-17] MEDS: TAMSULOSIN HCL 0.4 MG CAPSULE PO (20:45)
[2024-10-18 03:30] VITALS: BP 131/46; PULSE 79; RESP 18; TEMP 36.2; O2SAT 92
[2024-10-18] MEDS: RIVAROXABAN 10 MG TABLET PO (05:07)
[2024-10-18] MEDS: HYDROcodone/acetaminophen (*CRX) 5-325 MG TABLET 1 TAB PO ×2 (06:30→10:14)
[2024-10-18] MEDS: ceFAZolin 2 GM in SODIUM CHLORIDE 0.9% IV 50 ML 100 ML IVPB ×2 (06:30→15:36)
[2024-10-18 06:45] VITALS: BP 112/50; PULSE 84; RESP 18; TEMP 36.4; O2SAT 93
--- NOTE | 2024-10-18 07:05 | P.PNIM_ITS ---
Progress Note: A&P Assessment and Plan (1) Closed intertrochanteric fracture of left femur: Qualifiers: Encounter type: initial encounter Fracture alignment: displaced Qualified Code(s): S72.142A - Displaced intertrochanteric fracture of left femur, initial encounter for closed fracture Code(s): S72.142A - Displaced intertrochanteric fracture of left femur, initial encounter for closed fracture Status: Acute Assessment and Plan: * Mechanical fall at home after patient tripped and fell onto his left side, denies striking his head or losing consciousness * Hip and pelvis XR: Mildly displaced left femoral intertrochanteric fracture with slight varus angulation. * Ortho consulted surgical in non operative treatment options or offered * Patient desires operative treatment at this time * Plan for intramedullary nail fixation of the left intertrochanteric hip fracture * NPO until surgery * Consider treatment, pain control, mechanical DVT prophylaxis * Morphine 2mg IV q4hr, [place] 5-325 * On schedule for L Intertrochanteric Nail @ 1500 * POD 1Left hip intramedullary hip screw. * Post op care per ortho * Pain medications: [place] 5-325mg PO Q4H KP and PRN, Morphine 2mg IV Q1H PRN . * Cefazolin X3 bags * Bowel: Miralax and Senna * Ice pack * PT/OT (2) Ground-level fall: Code(s): W18.30XA - Fall on same level, unspecified, initial encounter Status: Acute Assessment and Plan: * See above (3) Hyperlipidemia: Qualifiers: Hyperlipidemia type: mixed hyperlipidemia Qualified Code(s): E78.2 - Mixed hyperlipidemia Code(s): E78.5 - Hyperlipidemia, unspecified Status: Acute Assessment and Plan: * Will restart at home medications after procedure (4) HTN (hypertension), benign: Code(s): I10 - Essential (primary) hypertension Status: Acute Assessment and Plan: * Stable, non-medicated * 112/50 Subjective Date/time seen: 10/18/24 07:05 Interval history: 78-year-old male with a pmhx of aortic stenosis, HTN, and prediabetes who presents to the hospital after a mechanical fall that occurred at home. 10/18/2024 POD 1 Left hip intramedullary hip screw. Working with physical therapy at time of exam. Pt endorses paint at surgical site, without radiation, numbness or tingling. Surgical site looks clean and dry, no obvious signs of excessive bleeding. WBC up to 12.5, likely reactive to surgery, pt is afebrile, no other signs of systemic symptoms. Ortho to continue reassessing. Continue with PT/OT - likely will benefit from further rehab upon discharge. Pt otherwise has no complaints or concerns. Review of Systems Review of Systems: All systems reviewed & are unremarkable except as noted in HPI and below Exam Narrative: Gen - well appearing male in no acute respiratory distress who is nontoxic- appearing lying semi recumbent in bed HEENT - normocephalic. Atraumatic. Pupils equal round and reactive. Extraocular motions intact. Nares patent. Oropharynx was clear. Moist mucous membranes. No facial asymmetry. Neck - neck was supple. No dominant adenopathy, thyromegaly or masses. Chest - lungs are clear to auscultation bilaterally. No wheezes or crackles. CV - heart was regular rate and rhythm. S1-S2. No murmurs gallops or rubs. Abd - abdomen was soft. Nontender. Nondistended. Positive bowel sounds. No organomegaly or masses. Ext - TTP over surgical site. Dressing looks clean, dry and intact. No clubbing, cyanosis or edema. 2+ DP pulses bilaterally. Neuro - patient is alert and oriented x4. Strength is 5/5 in both upper and lower extremities. Cranial nerves 2-12 are intact. Speech is clear. Psych - normal mood and affect. Patient is pleasant and cooperative. Skin - warm and dry. No rashes noted. Objective Data Vital Signs Vital Signs: Vital Signs - 24 hr 10/17/24 14:10 10/17/24 16:22 10/17/24 16:35 Temperature 98.7 F 97.3 F L Pulse Rate 98 108 H 109 H Respiratory Rate 16 20 18 Blood Pressure 131/69 142/68 H 125/66 Pulse Oximetry 95 100 97 Oxygen Delivery Room Air Simple Face Mask Room Air Oxygen Flow Rate 8 10/17/24 16:50 10/17/24 17:05 10/17/24 17:20 Temperature 98.4 F Pulse Rate 105 H 99 98 Respiratory Rate 15 14 16 Blood Pressure 130/69 113/64 124/60 Pulse Oximetry 94 93 95 Oxygen Delivery Room Air Room Air Room Air Oxygen Flow Rate 10/17/24 17:22 10/17/24 17:37 10/17/24 18:07 Temperature 96.1 F L 96.1 F L 96.7 F L Pulse Rate 99 96 104 H Respiratory Rate 16 16 16 Blood Pressure 109/51 L 117/55 L 102/59 L Pulse Oximetry 93 95 95 Oxygen Delivery Oxygen Flow Rate 10/17/24 19:07 10/17/24 20:49 10/17/24 21:05 Temperature 96.9 F L 97.6 F Pulse Rate 87 77 Respiratory Rate 16 14 Blood Pressure 103/62 111/46 L Pulse Oximetry 93 93 Oxygen Delivery Room Air Oxygen Flow Rate 10/18/24 03:30 10/18/24 06:45 Temperature 97.2 F L 97.6 F Pulse Rate 79 84 Respiratory Rate 18 18 Blood Pressure 131/46 L 112/50 L Pulse Oximetry 92 93 Oxygen Delivery Oxygen Flow Rate Intake/Output Intake/Output: Intake & Output 10/15/24 10/16/24 10/17/24 10/18/24 23:59 23:59 23:59 23:59 Intake Total 540 300 Output Total 450 Balance 540 -150 Meds/Results Medications: Active Medications Generic Name Dose Route Start Last Admin Trade Name Freq PRN Reason Stop Dose Admin Acetaminophen 650 mg 10/17/24 04:56 Acetaminophen 325 Mg Tablet PO Q4H PRN Mild Pain (1-3) or Fever Hydrocodone Bitart/Acetaminophen 1 tab 10/17/24 04:56 10/18/24 06:30 Hydrocodone/Acetaminophen (*Crx) 5-325 Mg Tablet PO 1 tab Q4H PRN Administration Pain Rated 4-6 Al Hydrox/Mg Hydrox/Simethicone 30 ml 10/17/24 17:22 Mag Hydrox/Al Hydrox/Simeth 30 Ml Udc PO Q6H PRN Indigestion Aspirin 81 mg 10/18/24 09:00 Aspirin 81 Mg Chewable Tablet PO DAILY [facility] Cyanocobalamin 1,000 mcg 10/18/24 09:00 Cyanocobalamin 1,000 Mcg Tablet PO DAILY KP Cyclobenzaprine HCl 10 mg 10/17/24 17:22 Cyclobenzaprine Hcl 10 Mg Tablet PO Q8H PRN Muscle Spasm Fish Oil 3 gm 10/18/24 09:00 [place] 3 Polyunsat Fatty Acids 1 Gm Cap PO DAILY KP Folic Acid 1 mg 10/18/24 09:00 Folic Acid 1 Mg Tablet PO DAILY [facility] Hydroxyzine Pamoate 50 mg 10/17/24 17:22 Hydroxyzine Pamoate 25 Mg Capsule PO Q4H PRN Itching Cefazolin Sodium 2 gm/ Sodium 50 mls @ 100 mls/hr 10/17/24 23:00 10/18/24 06:30 Chloride IVPB 10/18/24 15:29 100 mls/hr Q8H KP Administration Ibuprofen 800 mg in 200 mls @ 400 mls/hr 10/17/24 17:22 10/17/24 18:12 Caldolor 800 Mg/200 Ml IVPB 400 mls/hr Q6H PRN Administration Breakthrough Pain Rated 1-3 or NPO Magnesium Hydroxide 30 ml 10/17/24 17:22 Magnesium Hydroxide Susp 30 Ml Udc PO BID PRN Constipation Morphine Sulfate 2 mg 10/17/24 09:27 10/17/24 09:57 Morphine Sulfate (*Crx) 2 Mg/Ml Inj IV PUSH 2 mg Q4H PRN Administration Pain Rated 7-10 Multivitamins Therapeutic 1 tablet 10/18/24 09:00 Multivitamins Therapeutic Tab (*Bkc) PO DAILY [facility] Naloxone HCl 0.1 mg 10/17/24 17:22 Naloxone Hcl 0.4 Mg/Ml Vial IV PUSH Q2M PRN Opiate Reversal Olmesartan 10 mg 10/18/24 09:00 Olmesartan Medoxomil 10 Mg Tablet PO DAILY [facility] Ondansetron HCl 4 mg 10/17/24 04:56 Ondansetron Inj 4 Mg/2 Ml Vial IV PUSH Q4H PRN Nausea Polyethylene Glycol 17 gm 10/18/24 09:00 Polyethylene Glycol 3350 17 Gm Powd.Pack PO QAM [facility] Rivaroxaban 10 mg 10/18/24 00:00 10/18/24 05:07 Rivaroxaban 10 Mg Tablet PO 10 mg DAILY@17 [facility] Administration Rosuvastatin Calcium 20 mg 10/18/24 09:00 Rosuvastatin 20 Mg Tablet PO QAM [facility] Senna/Docusate Sodium 2 tab 10/17/24 17:22 10/17/24 18:11 Senna/Docusate Sodium Tablet PO 2 tab BID KP Administration Tamsulosin HCl 0.4 mg 10/17/24 21:00 08/14/25 20:45 Tamsulosin Hcl 0.4 Mg Capsule PO 0.4 mg HS [facility] Administration Vitamin D 125 mcg 10/18/24 09:00 Cholecalciferol (Vitamin D3) 125 Mcg (5,000 Units) Tablet PO DAILY [facility] Radiology Results: ITS Impressions Chest X-Ray 10/17/24 06:52 Impression: 1: Bibasilar infiltrates may represent atelectasis or less likely pneumonia. No significant change compared with 04/13/2022. Hip/Pelvis X-Ray 10/17/24 06:58 Impression: 1: Mildly displaced left femoral intertrochanteric fracture with slight varus angulation. Quality VTE Prophylaxis VTE prophylaxis: mechanical ordered
[2024-10-18 08:49] LABS: Hematocrit 35.0 % (42.0-52.0); Hemoglobin 11.7 g/dL (14.0-18.0); Immature Granulocyte Percent A 0.4 % (0-0.5); Lymphocytes Absolute Auto 2.13 K/mm3 (0.9-3.2); Mean Corpuscular HGB Conc 33.4 g/dl (32-36); Mean Corpuscular Hemoglobin 32.8 pg (26-34); Mean Corpuscular Volume 98.0 fl (80-100); Nucleated Red Blood Cells Absolute Auto 0.000 K/mm3 (0.0-0.012); Nucleated Red Blood Cells Perc 0.0 % (0.0-0.2); Platelet Count Result 146 k/mm3 (150-375); Red Blood Count 3.57 M/mm3 (4.6-6.20); White Blood Count 12.5 K/mm3 (4.5-10.0)
[2024-10-18 09:18] LABS: Alanine Aminotransferase 21 U/L (6-50); Albumin Level 3.6 g/dL (3.5-5.1); Alkaline Phosphatase 51 U/L (38-126); Anion Gap 7 mmol/L (4-12); Aspartate Amino Transferase 26 U/L (17-59); Bilirubin,Total 0.8 mg/dL (0.2-1.3); Blood Urea Nitrogen 12 mg/dL (9-20); Calcium 8.8 mg/dL (8.4-10.2); Carbon Dioxide 25 mmol/L (22-30); Chloride 104 mmol/L (98-107); Estimated CRCL calculation 96 ml/min; Estimated Glomerular Filt Rate > 60; Glucose 133 mg/dL (65-110); Potassium 4.2 mmol/L (3.4-5.0); Sodium 136 mmol/L (137-145); Total Protein 6.5 g/dL (6.3-8.2)
[2024-10-18 09:27] VITALS: O2SAT 91
[2024-10-18] MEDS: OMEGA 3 POLYUNSAT FATTY ACIDS 1 GM CAP 3 GM PO (10:02)
[2024-10-18] MEDS: OLMESARTAN MEDOXOMIL 10 MG TABLET PO (10:03)
[2024-10-18] MEDS: ASPIRIN 81 MG CHEWABLE TABLET PO (10:03)
[2024-10-18] MEDS: SENNA/DOCUSATE SODIUM TABLET 2 TAB PO ×2 (10:03→17:29)
[2024-10-18] MEDS: CYANOCOBALAMIN 1,000 MCG TABLET 1000 MCG PO (10:03)
[2024-10-18] MEDS: FOLIC ACID 1 MG TABLET PO (10:04)
[2024-10-18] MEDS: CHOLECALCIFEROL (VITAMIN D3) 125 MCG (5,000 UNITS) TABLET PO (10:04)
[2024-10-18] MEDS: ROSUVASTATIN 20 MG TABLET PO (10:04)
[2024-10-18] MEDS: MULTIVITAMINS THERAPEUTIC TAB (*BKC) 1 TABLET PO (10:04)
[2024-10-18 10:49] VITALS: BP 107/48; PULSE 98; RESP 16; TEMP 35.9; O2SAT 94
--- NOTE | 2024-10-18 11:14 | PM.PNORT ---
Progress Note: A&P Assessment and Plan (1) Closed intertrochanteric fracture of left femur: Qualifiers: Encounter type: subsequent encounter Fracture alignment: displaced Fracture healing: with routine healing Qualified Code(s): S72.142D - Displaced intertrochanteric fracture of left femur, subsequent encounter for closed fracture with routine healing Code(s): S72.142A - Displaced intertrochanteric fracture of left femur, initial encounter for closed fracture Status: Acute Assessment and Plan: Postop day 1 left hip intramedullary nail. Operative treatment reviewed with the patient. Pain in better control. PT/OT with weight-bearing as tolerated. Pain control. DVT prophylaxis with aspirin and Xarelto. Will require rehab for gait, balance, strengthening and ADLs. Subjective Subjective Date/Time Seen: 10/18/24 11:14 Post Op day: 1 Principal diagnosis: Lt hip IT fx Exam Const: General: comfortable; No acute distress Resp: Effort & Inspection: normal respiratory effort and no audible wheezes Extrem: Right lower extremity: lower leg ( Negative Homans sign), ankle Details: normal ROM ( dorsiflexion and plantar flexion intact) and foot Details: vascular exam Details: dorsalis pedis pulse present and normal capillary refill, tendon exam Details: active flexion normal and active extension normal and motor-sensory exam Details: light-touch normal Location: in all toes; no edema Left lower extremity: normal to inspection, hip/thigh Details: other ( left hip dressing clean dry and intact. Thigh muscle soft.), ankle Details: pitting edema Details: pitting and 2+ and normal ROM and foot Details: abnormal to inspection Details: a deformity ( cavovarus foot), vascular exam Details: dorsalis pedis pulse present and normal capillary refill and motor-sensory exam light-touch normal in all toes; no edema Objective Data Vital Signs Vital Signs: Vital Signs - 24 hr 10/17/24 14:10 10/17/24 16:22 10/17/24 16:35 Temperature 98.7 F 97.3 F L Pulse Rate 98 108 H 109 H Respiratory Rate 16 20 18 Blood Pressure 131/69 142/68 H 125/66 Pulse Oximetry 95 100 97 Oxygen Delivery Room Air Simple Face Mask Room Air Oxygen Flow Rate 8 10/17/24 16:50 10/17/24 17:05 10/17/24 17:20 Temperature 98.4 F Pulse Rate 105 H 99 98 Respiratory Rate 15 14 16 Blood Pressure 130/69 113/64 124/60 Pulse Oximetry 94 93 95 Oxygen Delivery Room Air Room Air Room Air Oxygen Flow Rate 10/17/24 17:22 10/17/24 17:37 10/17/24 18:07 Temperature 96.1 F L 96.1 F L 96.7 F L Pulse Rate 99 96 104 H Respiratory Rate 16 16 16 Blood Pressure 109/51 L 117/55 L 102/59 L Pulse Oximetry 93 95 95 Oxygen Delivery Oxygen Flow Rate 10/17/24 19:07 10/17/24 20:49 10/17/24 21:05 Temperature 96.9 F L 97.6 F Pulse Rate 87 77 Respiratory Rate 16 14 Blood Pressure 103/62 111/46 L Pulse Oximetry 93 93 Oxygen Delivery Room Air Oxygen Flow Rate 10/18/24 03:30 10/18/24 06:45 10/18/24 09:21 Temperature 97.2 F L 97.6 F Pulse Rate 79 84 Respiratory Rate 18 18 Blood Pressure 131/46 L 112/50 L Pulse Oximetry 92 93 Oxygen Delivery Room Air Oxygen Flow Rate 10/18/24 09:27 10/18/24 09:35 10/18/24 10:49 Temperature 96.7 F L Pulse Rate 98 Respiratory Rate 16 Blood Pressure 107/48 L Pulse Oximetry 91 94 Oxygen Delivery Room Air Room Air Oxygen Flow Rate Intake/Output Intake/Output: Intake & Output 10/15/24 10/16/24 10/17/24 10/18/24 23:59 23:59 23:59 23:59 Intake Total 540 537 Output Total 450 Balance 540 87 Meds/Results Medications: Active Medications Generic Name Dose Route Start Last Admin Trade Name Freq PRN Reason Stop Dose Admin Acetaminophen 650 mg 10/17/24 04:56 Acetaminophen 325 Mg Tablet PO Q4H PRN Mild Pain (1-3) or Fever Hydrocodone Bitart/Acetaminophen 1 tab 10/17/24 04:56 10/18/24 10:14 Hydrocodone/Acetaminophen (*Crx) 5-325 Mg Tablet PO 1 tab Q4H PRN Administration Pain Rated 4-6 Al Hydrox/Mg Hydrox/Simethicone 30 ml 10/17/24 17:22 Mag Hydrox/Al Hydrox/Simeth 30 Ml Udc PO Q6H PRN Indigestion Aspirin 81 mg 08/15/25 09:00 10/18/24 10:03 Aspirin 81 Mg Chewable Tablet PO 81 mg DAILY KP Administration Cyanocobalamin 1,000 mcg 10/18/24 09:00 10/18/24 10:03 Cyanocobalamin 1,000 Mcg Tablet PO 1,000 mcg DAILY KP Administration Cyclobenzaprine HCl 10 mg 10/17/24 17:22 Cyclobenzaprine Hcl 10 Mg Tablet PO Q8H PRN Muscle Spasm Fish Oil 3 gm 10/18/24 09:00 10/18/24 10:02 [place] 3 Polyunsat Fatty Acids 1 Gm Cap PO 3 gm DAILY KP Administration Folic Acid 1 mg 10/18/24 09:00 10/18/24 10:04 Folic Acid 1 Mg Tablet PO 1 mg DAILY KP Administration Hydroxyzine Pamoate 50 mg 10/17/24 17:22 Hydroxyzine Pamoate 25 Mg Capsule PO Q4H PRN Itching Cefazolin Sodium 2 gm/ Sodium 50 mls @ 100 mls/hr 10/17/24 23:00 10/18/24 06:30 Chloride IVPB 10/18/24 15:29 100 mls/hr Q8H KP Administration Ibuprofen 800 mg in 200 mls @ 400 mls/hr 10/17/24 17:22 10/17/24 18:12 Caldolor 800 Mg/200 Ml IVPB 400 mls/hr Q6H PRN Administration Breakthrough Pain Rated 1-3 or NPO Magnesium Hydroxide 30 ml 10/17/24 17:22 Magnesium Hydroxide Susp 30 Ml Udc PO BID PRN Constipation Morphine Sulfate 2 mg 10/17/24 09:27 10/17/24 09:57 Morphine Sulfate (*Crx) 2 Mg/Ml Inj IV PUSH 2 mg Q4H PRN Administration Pain Rated 7-10 Multivitamins Therapeutic 1 tablet 10/18/24 09:00 10/18/24 10:04 Multivitamins Therapeutic Tab (*Bkc) PO 1 tablet DAILY KP Administration Naloxone HCl 0.1 mg 10/17/24 17:22 Naloxone Hcl 0.4 Mg/Ml Vial IV PUSH Q2M PRN Opiate Reversal Olmesartan 10 mg 10/18/24 09:00 10/18/24 10:03 Olmesartan Medoxomil 10 Mg Tablet PO 10 mg DAILY KP Administration Ondansetron HCl 4 mg 10/17/24 04:56 Ondansetron Inj 4 Mg/2 Ml Vial IV PUSH Q4H PRN Nausea Polyethylene Glycol 17 gm 10/18/24 09:00 10/18/24 10:04 Polyethylene Glycol 3350 17 Gm Powd.Pack PO 17 gm QAM KP Administration Rivaroxaban 10 mg 10/18/24 00:00 10/18/24 05:07 Rivaroxaban 10 Mg Tablet PO 10 mg DAILY@17 KP Administration Rosuvastatin Calcium 20 mg 10/18/24 09:00 10/18/24 10:04 Rosuvastatin 20 Mg Tablet PO 20 mg QAM KP Administration Senna/Docusate Sodium 2 tab 10/17/24 17:22 10/18/24 10:03 Senna/Docusate Sodium Tablet PO 2 tab BID KP Administration Tamsulosin HCl 0.4 mg 10/17/24 21:00 10/17/24 20:45 Tamsulosin Hcl 0.4 Mg Capsule PO 0.4 mg HS KP Administration Vitamin D 125 mcg 10/18/24 09:00 10/18/24 10:04 Cholecalciferol (Vitamin D3) 125 Mcg (5,000 Units) Tablet PO 125 mcg DAILY KP Administration Radiology Results: ITS Impressions Chest X-Ray 10/17/24 06:52 Impression: 1: Bibasilar infiltrates may represent atelectasis or less likely pneumonia. No significant change compared with 04/13/2022. Hip/Pelvis X-Ray 10/17/24 06:58 Impression: 1: Mildly displaced left femoral intertrochanteric fracture with slight varus angulation. Labs Labs: Laboratory Results - last 24 hr 10/18/24 08:33 WBC 12.5 H RBC 3.57 L Hgb 11.7 L Hct 35.0 L MCV 98.0 MCH 32.8 MCHC 33.4 RDW 12.9 Plt Count 146 L MPV 10.8 H Immature Gran % (Auto) 0.4 Neut % (Auto) 66.1 Lymph % (Auto) 17.1 L [place] % (Auto) 13.0 H Eos % (Auto) 3.1 Baso % (Auto) 0.3 Lymph # (Auto) 2.13 [place] # (Auto) 1.6 H Eos # (Auto) 0.4 H Baso # (Auto) 0.0 Abs Immat Gran (auto) 0.05 H Absolute Neuts (auto) 8.2 H Absolute Nucleated RBC 0.000 Nucleated RBC % 0.0 Sodium 136 L Potassium 4.2 Chloride 104 Carbon Dioxide 25 Anion Gap 7 BUN 12 Creatinine 0.65 L Estim Creat Clear Calc 96 Estimated GFR > 60 Glucose 133 H Calcium 8.8 Total Bilirubin 0.8 AST 26 ALT 21 Alkaline Phosphatase 51 Total Protein 6.5 Albumin 3.6
[2024-10-18 15:07] VITALS: BP 110/53; PULSE 95; RESP 16; TEMP 36.1; O2SAT 96
--- NOTE | 2024-10-18 19:18 | PC.NURSE ---
Spoke with Dr. Pearson regarding Xarelto. pt was to be given Xarelto @ 00:00 on 10/17/24. This dose was missed and given at 05:00 on 10/18/24. Dr. Pearson would like todays (10/18/24) held and started tomorrow 10/19/2024 @ 17:00.
[2024-10-18] MEDS: TAMSULOSIN HCL 0.4 MG CAPSULE PO (21:00)
[2024-10-18 21:15] VITALS: BP 128/60; PULSE 108; RESP 18; TEMP 37.9; O2SAT 91
[2024-10-19] MEDS: MORPHINE SULFATE (*CRX) 2 MG/ML INJ IV PUSH ×2 (03:38→08:17)
[2024-10-19 04:15] LABS: Add Urine Microscopic? YES; Appearance Urine Clear (Clear); Glucose Urine UA Negative (Negative); Leukocyte Esterase Ur Trace LEU/UL (Negative); Nitrate Urine Negative (Negative); Non Pathogenic Casts 0-2; Specific Grav Ur 1.021 (1.001-1.035)
[2024-10-19 05:15] VITALS: BP 171/68; PULSE 106; RESP 20; TEMP 37.3; O2SAT 90
--- NOTE | 2024-10-19 08:05 | P.PNIM_ITS ---
Progress Note: A&P Assessment and Plan (1) Sepsis: Code(s): A41.9 - Sepsis, unspecified organism Status: Acute Assessment and Plan: * Meets SIRS criteria: Tachycardia, leukocytosis * lactic acid: 1.1 * suspected source: Unknown * blood cultures drawn on 10/18 -pending * UA: Unremarkable for infection * Urine culture not indicated * CXR: No acute findings * 1000ml NS @ 100ml/hr (2) Closed intertrochanteric fracture of left femur: Qualifiers: Encounter type: subsequent encounter Fracture alignment: displaced Fracture healing: with routine healing Qualified Code(s): S72.142D - Displaced intertrochanteric fracture of left femur, subsequent encounter for closed fracture with routine healing Code(s): S72.142A - Displaced intertrochanteric fracture of left femur, initial encounter for closed fracture Status: Acute Assessment and Plan: * Mechanical fall at home after patient tripped and fell onto his left side, denies striking his head or losing consciousness * Hip and pelvis XR: Mildly displaced left femoral intertrochanteric fracture with slight varus angulation. * Ortho consulted surgical in non operative treatment options or offered * Patient desires operative treatment at this time * Plan for intramedullary nail fixation of the left intertrochanteric hip fracture * NPO until surgery * Consider treatment, pain control, mechanical DVT prophylaxis * Morphine 2mg IV q4hr, [place] 5-325 * On schedule for L Intertrochanteric Nail @ 1500 * POD 10/17.25: Left hip intramedullary hip screw. * Post op care per ortho * Pain medications: [place] 5-325mg PO Q4H KP and PRN, Morphine 2mg IV Q1H PRN . * Cefazolin X3 bags * Ice pack * PT/OT -recommending further skilled rehab * Working closely with care coordination regarding outpatient placement (3) Ground-level fall: Code(s): W18.30XA - Fall on same level, unspecified, initial encounter Status: Acute Assessment and Plan: * See above (4) Hyperlipidemia: Qualifiers: Hyperlipidemia type: mixed hyperlipidemia Qualified Code(s): E78.2 - Mixed hyperlipidemia Code(s): E78.5 - Hyperlipidemia, unspecified Status: Acute Assessment and Plan: * Will restart at home medications after procedure (5) HTN (hypertension), benign: Code(s): I10 - Essential (primary) hypertension Status: Acute Assessment and Plan: * Stable, non-medicated * 171/68 Subjective Date/time seen: 10/19/24 08:05 Interval history: 78-year-old male with a pmhx of aortic stenosis, HTN, and prediabetes who presents to the hospital after a mechanical fall that occurred at home. 10/18/2024 POD 2 Left hip intramedullary hip screw. Accompanied by at time of exam. Sepsis workup was initated last night as WBC was elevated in AM labs on 10/18 @ 12.5 and at 2100 the pt had a reported heart rate of 108. Blood cultures drawn (pending), chest XR negative for any acute findings, lactic acid wnl, and urinalysis unremarkable. Will continue to work with PT/OT, likely will need placement for continued rehab. He continues to endorse surgical site discomfort but improving, maintaining WBAT status with adequate pain control. Patient otherwise has no complaints or concerns at this time. Review of Systems Review of Systems: All systems reviewed & are unremarkable except as noted in HPI and below Exam Narrative: Gen - well appearing male in no acute respiratory distress who is nontoxic- appearing lying semi recumbent in bed HEENT - normocephalic. Atraumatic. Pupils equal round and reactive. Extraocular motions intact. Nares patent. Oropharynx was clear. Moist mucous membranes. No facial asymmetry. Neck - neck was supple. No dominant adenopathy, thyromegaly or masses. Chest - lungs are clear to auscultation bilaterally. No wheezes or crackles. CV - heart was regular rate and rhythm. S1-S2. No murmurs gallops or rubs. Abd - abdomen was soft. Nontender. Nondistended. Positive bowel sounds. No organomegaly or masses. Ext - TTP over surgical site. Dressing looks clean, dry and intact. No clubbing, cyanosis or edema. 2+ DP pulses bilaterally. Neuro - patient is alert and oriented x4. Strength is 5/5 in both upper and lower extremities. Cranial nerves 2-12 are intact. Speech is clear. Psych - normal mood and affect. Patient is pleasant and cooperative. Skin - warm and dry. No rashes noted. Objective Data Vital Signs Vital Signs: Vital Signs - 24 hr 10/18/24 09:21 10/18/24 09:27 10/18/24 09:35 Temperature Pulse Rate Respiratory Rate Blood Pressure Pulse Oximetry 91 Oxygen Delivery Room Air Room Air Room Air 10/18/24 10:05 10/18/24 10:49 10/18/24 15:07 Temperature 96.7 F L 96.9 F L Pulse Rate 98 95 Respiratory Rate 16 16 Blood Pressure 107/48 L 110/53 L Pulse Oximetry 94 96 Oxygen Delivery Room Air 10/18/24 21:00 10/18/24 21:15 10/19/24 05:15 Temperature 100.3 F H 99.1 F Pulse Rate 108 H 106 H Respiratory Rate 18 20 Blood Pressure 128/60 171/68 H Pulse Oximetry 91 90 Oxygen Delivery Room Air Intake/Output Intake/Output: Intake & Output 10/16/24 10/17/24 10/18/24 10/19/24 23:59 23:59 23:59 23:59 Intake Total 540 1427 700 Output Total 950 850 Balance 540 477 -150 Meds/Results Medications: Active Medications Generic Name Dose Route Start Last Admin Trade Name Freq PRN Reason Stop Dose Admin Acetaminophen 650 mg 10/17/24 04:56 Acetaminophen 325 Mg Tablet PO Q4H PRN Mild Pain (1-3) or Fever Hydrocodone Bitart/Acetaminophen 1 tab 10/17/24 04:56 10/18/24 10:14 Hydrocodone/Acetaminophen (*Crx) 5-325 Mg Tablet PO 1 tab Q4H PRN Administration Pain Rated 4-6 Al Hydrox/Mg Hydrox/Simethicone 30 ml 10/17/24 17:22 Mag Hydrox/Al Hydrox/Simeth 30 Ml Udc PO Q6H PRN Indigestion Aspirin 81 mg 10/18/24 09:00 10/18/24 10:03 Aspirin 81 Mg Chewable Tablet PO 81 mg DAILY KP Administration Cyanocobalamin 1,000 mcg 10/18/24 09:00 10/18/24 10:03 Cyanocobalamin 1,000 Mcg Tablet PO 1,000 mcg DAILY KP Administration Cyclobenzaprine HCl 10 mg 10/17/24 17:22 Cyclobenzaprine Hcl 10 Mg Tablet PO Q8H PRN Muscle Spasm Fish Oil 3 gm 10/18/24 09:00 10/18/24 10:02 [place] 3 Polyunsat Fatty Acids 1 Gm Cap PO 3 gm DAILY KP Administration Folic Acid 1 mg 10/18/24 09:00 10/18/24 10:04 Folic Acid 1 Mg Tablet PO 1 mg DAILY KP Administration Hydroxyzine Pamoate 50 mg 10/17/24 17:22 Hydroxyzine Pamoate 25 Mg Capsule PO Q4H PRN Itching Ibuprofen 800 mg in 200 mls @ 400 mls/hr 10/17/24 17:22 10/17/24 18:12 Caldolor 800 Mg/200 Ml IVPB 400 mls/hr Q6H PRN Administration Breakthrough Pain Rated 1-3 or NPO Magnesium Hydroxide 30 ml 10/17/24 17:22 Magnesium Hydroxide Susp 30 Ml Udc PO BID PRN Constipation Morphine Sulfate 2 mg 10/17/24 09:27 10/19/24 03:38 Morphine Sulfate (*Crx) 2 Mg/Ml Inj IV PUSH 2 mg Q4H PRN Administration Pain Rated 7-10 Multivitamins Therapeutic 1 tablet 10/18/24 09:00 10/18/24 10:04 Multivitamins Therapeutic Tab (*Bkc) PO 1 tablet DAILY KP Administration Naloxone HCl 0.1 mg 10/17/24 17:22 Naloxone Hcl 0.4 Mg/Ml Vial IV PUSH Q2M PRN Opiate Reversal Olmesartan 10 mg 10/18/24 09:00 10/18/24 10:03 Olmesartan Medoxomil 10 Mg Tablet PO 10 mg DAILY KP Administration Ondansetron HCl 4 mg 10/17/24 04:56 Ondansetron Inj 4 Mg/2 Ml Vial IV PUSH Q4H PRN Nausea Polyethylene Glycol 17 gm 10/18/24 09:00 10/18/24 10:04 Polyethylene Glycol 3350 17 Gm Powd.Pack PO 17 gm QAM KP Administration Rivaroxaban 10 mg 10/19/24 17:00 Rivaroxaban 10 Mg Tablet PO DAILY@1700 KP Rosuvastatin Calcium 20 mg 10/18/24 09:00 10/18/24 10:04 Rosuvastatin 20 Mg Tablet PO 20 mg QAM KP Administration Senna/Docusate Sodium 2 tab 10/17/24 17:22 10/18/24 17:29 Senna/Docusate Sodium Tablet PO 2 tab BID KP Administration Tamsulosin HCl 0.4 mg 10/17/24 21:00 10/18/24 21:00 Tamsulosin Hcl 0.4 Mg Capsule PO 0.4 mg HS KP Administration Vitamin D 125 mcg 10/18/24 09:00 10/18/24 10:04 Cholecalciferol (Vitamin D3) 125 Mcg (5,000 Units) Tablet PO 125 mcg DAILY KP Administration Radiology Results: ITS Impressions Hip/Pelvis X-Ray 10/17/24 06:58 Impression: 1: Mildly displaced left femoral intertrochanteric fracture with slight varus angulation. Chest X-Ray 10/18/24 22:34 IMPRESSION: No focal infiltrate or effusion. Labs Labs: Laboratory Results - last 24 hr 10/18/24 10/18/24 10/19/24 08:33 23:21 03:57 WBC 12.5 H RBC 3.57 L Hgb 11.7 L Hct 35.0 L MCV 98.0 MCH 32.8 MCHC 33.4 RDW 12.9 Plt Count 146 L MPV 10.8 H Immature Gran % (Auto) 0.4 Neut % (Auto) 66.1 Lymph % (Auto) 17.1 L [place] % (Auto) 13.0 H Eos % (Auto) 3.1 Baso % (Auto) 0.3 Lymph # (Auto) 2.13 [place] # (Auto) 1.6 H Eos # (Auto) 0.4 H Baso # (Auto) 0.0 Abs Immat Gran (auto) 0.05 H Absolute Neuts (auto) 8.2 H Absolute Nucleated RBC 0.000 Nucleated RBC % 0.0 Sodium 136 L Potassium 4.2 Chloride 104 Carbon Dioxide 25 Anion Gap 7 BUN 12 Creatinine 0.65 L Estim Creat Clear Calc 96 Estimated GFR > 60 Glucose 133 H Lactic Acid 1.1 Calcium 8.8 Total Bilirubin 0.8 AST 26 ALT 21 Alkaline Phosphatase 51 Total Protein 6.5 Albumin 3.6 Urine Color Yellow Urine Appearance Clear Urine pH 6.0 Ur Specific [place] 1.021 Urine Protein Trace Urine Glucose (UA) Negative Urine Ketones 1+ H Ur Blood (Man) Negative Urine Nitrate Negative Urine Bilirubin Negative Urine Urobilinogen 1.0 Leukocyte Esterase Rfl Trace H Urine RBC 0-2 Urine WBC 0-5 Ur Squamous Epith Cells None seen Urine Bacteria None seen Urine Casts 0-2 Quality VTE Prophylaxis VTE prophylaxis: mechanical ordered
[2024-10-19] MEDS: SENNA/DOCUSATE SODIUM TABLET 2 TAB PO ×2 (08:13→16:03)
[2024-10-19] MEDS: ASPIRIN 81 MG CHEWABLE TABLET PO (08:14)
[2024-10-19] MEDS: MULTIVITAMINS THERAPEUTIC TAB (*BKC) 1 TABLET PO (08:14)
[2024-10-19] MEDS: CYANOCOBALAMIN 1,000 MCG TABLET 1000 MCG PO (08:14)
[2024-10-19] MEDS: ROSUVASTATIN 20 MG TABLET PO (08:14)
[2024-10-19] MEDS: CHOLECALCIFEROL (VITAMIN D3) 125 MCG (5,000 UNITS) TABLET PO (08:14)
[2024-10-19] MEDS: OMEGA 3 POLYUNSAT FATTY ACIDS 1 GM CAP 3 GM PO (08:14)
[2024-10-19] MEDS: OLMESARTAN MEDOXOMIL 10 MG TABLET PO (08:14)
[2024-10-19] MEDS: FOLIC ACID 1 MG TABLET PO (08:15)
[2024-10-19] MEDS: SODIUM CHLORIDE 0.9% IV 1,000 ML 100 ML IV CONT (08:24)
[2024-10-19 08:56] LABS: Hematocrit 33.1 % (42.0-52.0); Hemoglobin 11.0 g/dL (14.0-18.0); Immature Granulocyte Percent A 0.7 % (0-0.5); Lymphocytes Absolute Auto 1.98 K/mm3 (0.9-3.2); Mean Corpuscular HGB Conc 33.2 g/dl (32-36); Mean Corpuscular Hemoglobin 32.5 pg (26-34); Mean Corpuscular Volume 97.9 fl (80-100); Nucleated Red Blood Cells Absolute Auto 0.000 K/mm3 (0.0-0.012); Nucleated Red Blood Cells Perc 0.0 % (0.0-0.2); Platelet Count Result 146 k/mm3 (150-375); Red Blood Count 3.38 M/mm3 (4.6-6.20); White Blood Count 15.2 K/mm3 (4.5-10.0)
[2024-10-19 09:20] LABS: Alanine Aminotransferase 15 U/L (6-50); Albumin Level 3.5 g/dL (3.5-5.1); Alkaline Phosphatase 43 U/L (38-126); Anion Gap 7 mmol/L (4-12); Aspartate Amino Transferase 31 U/L (17-59); Bilirubin,Total 0.8 mg/dL (0.2-1.3); Blood Urea Nitrogen 10 mg/dL (9-20); Calcium 8.7 mg/dL (8.4-10.2); Carbon Dioxide 25 mmol/L (22-30); Chloride 101 mmol/L (98-107); Estimated CRCL calculation 98 ml/min; Estimated Glomerular Filt Rate > 60; Glucose 141 mg/dL (65-110); Potassium 4.3 mmol/L (3.4-5.0); Sodium 133 mmol/L (137-145); Total Protein 6.6 g/dL (6.3-8.2)
[2024-10-19] MEDS: HYDROcodone/acetaminophen (*CRX) 5-325 MG TABLET 1 TAB PO (12:06)
[2024-10-19 14:00] VITALS: BP 105/49; PULSE 95; RESP 16; TEMP 36.6; O2SAT 93
[2024-10-19] MEDS: RIVAROXABAN 10 MG TABLET PO (16:04)
--- NOTE | 2024-10-19 17:27 | P.PNOP_ITS ---
Progress Note: A&P Assessment and Plan (1) Closed intertrochanteric fracture of left femur: Qualifiers: Encounter type: subsequent encounter Fracture alignment: displaced Fracture healing: with routine healing Qualified Code(s): S72.142D - Displaced intertrochanteric fracture of left femur, subsequent encounter for closed fracture with routine healing Code(s): S72.142A - Displaced intertrochanteric fracture of left femur, initial encounter for closed fracture Status: Acute Assessment and Plan: Postop day 2 left hip intramedullary nail. Still with pain left hip. Will review medication. PT/OT with weight-bearing as tolerated. Pain control. DVT prophylaxis with aspirin and Xarelto. Will require rehab for gait, balance, strengthening and ADLs. Subjective Subjective Date/Time Seen: 10/19/24 17:27 Post Op day: 2 Principal diagnosis: Lt hip IT fx Interval history: complains of pain left hip. No problems overnight. Tolerating diet. Exam Const: General: comfortable; No acute distress Resp: Effort & Inspection: normal respiratory effort and no audible wheezes Extrem: Right lower extremity: lower leg ( Negative Homans sign), ankle Details: normal ROM ( dorsiflexion and plantar flexion intact) and foot Details: vascular exam Details: dorsalis pedis pulse present and normal capillary refill, tendon exam Details: active flexion normal and active extension normal and motor-sensory exam Details: light-touch normal Location: in all toes; no edema Left lower extremity: normal to inspection, hip/thigh Details: other ( left hip dressing clean dry and intact. Thigh muscle soft.), ankle Details: pitting edema Details: pitting and 2+ and normal ROM and foot Details: abnormal to inspection Details: a deformity ( cavovarus foot), vascular exam Details: dorsalis pedis pulse present and normal capillary refill and motor-sensory exam light-touch normal in all toes; no edema Objective Data Vital Signs Vital Signs: Vital Signs - 24 hr 10/18/24 21:00 10/18/24 21:15 10/19/24 05:15 Temperature 100.3 F H 99.1 F Pulse Rate 108 H 106 H Respiratory Rate 18 20 Blood Pressure 128/60 171/68 H Pulse Oximetry 91 90 Oxygen Delivery Room Air 10/19/24 08:00 10/19/24 14:00 Temperature 97.9 F Pulse Rate 95 Respiratory Rate 16 Blood Pressure 105/49 L Pulse Oximetry 93 Oxygen Delivery Room Air Intake/Output Intake/Output: Intake & Output 10/16/24 10/17/24 10/18/24 10/19/24 23:59 23:59 23:59 23:59 Intake Total 540 1427 1180 Output Total 950 850 Balance 540 907 330 Meds/Results Medications: Active Medications Generic Name Dose Route Start Last Admin Trade Name Freq PRN Reason Stop Dose Admin Acetaminophen 650 mg 10/17/24 04:56 Acetaminophen 325 Mg Tablet PO Q4H PRN Mild Pain (1-3) or Fever Hydrocodone Bitart/Acetaminophen 1 tab 10/17/24 04:56 10/19/24 12:06 Hydrocodone/Acetaminophen (*Crx) 5-325 Mg Tablet PO 1 tab Q4H PRN Administration Pain Rated 4-6 Al Hydrox/Mg Hydrox/Simethicone 30 ml 10/17/24 17:22 Mag Hydrox/Al Hydrox/Simeth 30 Ml Udc PO Q6H PRN Indigestion Aspirin 81 mg 10/18/24 09:00 10/19/24 08:14 Aspirin 81 Mg Chewable Tablet PO 81 mg DAILY KP Administration Cyanocobalamin 1,000 mcg 10/18/24 09:00 10/19/24 08:14 Cyanocobalamin 1,000 Mcg Tablet PO 1,000 mcg DAILY KP Administration Cyclobenzaprine HCl 10 mg 10/17/24 17:22 Cyclobenzaprine Hcl 10 Mg Tablet PO Q8H PRN Muscle Spasm Fish Oil 3 gm 10/18/24 09:00 10/19/24 08:14 [place] 3 Polyunsat Fatty Acids 1 Gm Cap PO 3 gm DAILY KP Administration Folic Acid 1 mg 10/18/24 09:00 10/19/24 08:15 Folic Acid 1 Mg Tablet PO 1 mg DAILY KP Administration Hydroxyzine Pamoate 50 mg 10/17/24 17:22 Hydroxyzine Pamoate 25 Mg Capsule PO Q4H PRN Itching Ibuprofen 800 mg in 200 mls @ 400 mls/hr 10/17/24 17:22 10/17/24 18:12 Caldolor 800 Mg/200 Ml IVPB 400 mls/hr Q6H PRN Administration Breakthrough Pain Rated 1-3 or NPO Sodium Chloride 1,000 mls @ 100 mls/hr 10/19/24 08:11 10/19/24 08:24 Normal Saline Iv IV CONT 10/19/24 18:10 100 mls/hr .Q10H ONE Administration Magnesium Hydroxide 30 ml 10/17/24 17:22 Magnesium Hydroxide Susp 30 Ml Udc PO BID PRN Constipation Morphine Sulfate 2 mg 10/17/24 09:27 10/19/24 08:17 Morphine Sulfate (*Crx) 2 Mg/Ml Inj IV PUSH 2 mg Q4H PRN Administration Pain Rated 7-10 Multivitamins Therapeutic 1 tablet 10/18/24 09:00 10/19/24 08:14 Multivitamins Therapeutic Tab (*Bkc) PO 1 tablet DAILY KP Administration Naloxone HCl 0.1 mg 10/17/24 17:22 Naloxone Hcl 0.4 Mg/Ml Vial IV PUSH Q2M PRN Opiate Reversal Olmesartan 10 mg 10/18/24 09:00 10/19/24 08:14 Olmesartan Medoxomil 10 Mg Tablet PO 10 mg DAILY KP Administration Ondansetron HCl 4 mg 10/17/24 04:56 Ondansetron Inj 4 Mg/2 Ml Vial IV PUSH Q4H PRN Nausea Polyethylene Glycol 17 gm 10/18/24 09:00 10/19/24 08:15 Polyethylene Glycol 3350 17 Gm Powd.Pack PO 17 gm QAM KP Administration Rivaroxaban 10 mg 10/19/24 17:00 10/19/24 16:04 Rivaroxaban 10 Mg Tablet PO 10 mg DAILY@1700 KP Administration Rosuvastatin Calcium 20 mg 10/18/24 09:00 10/19/24 08:14 Rosuvastatin 20 Mg Tablet PO 20 mg QAM KP Administration Senna/Docusate Sodium 2 tab 10/17/24 17:22 10/19/24 16:03 Senna/Docusate Sodium Tablet PO 2 tab BID KP Administration Tamsulosin HCl 0.4 mg 10/17/24 21:00 10/18/24 21:00 Tamsulosin Hcl 0.4 Mg Capsule PO 0.4 mg HS KP Administration Vitamin D 125 mcg 10/18/24 09:00 10/19/24 08:14 Cholecalciferol (Vitamin D3) 125 Mcg (5,000 Units) Tablet PO 125 mcg DAILY KP Administration Radiology Results: ITS Impressions Hip/Pelvis X-Ray 10/17/24 06:58 Impression: 1: Mildly displaced left femoral intertrochanteric fracture with slight varus angulation. Chest X-Ray 10/18/24 22:34 IMPRESSION: No focal infiltrate or effusion. Labs Labs: Laboratory Results - last 24 hr 10/18/24 10/19/24 10/19/24 23:21 03:57 08:36 WBC 15.2 H RBC 3.38 L Hgb 11.0 L Hct 33.1 L MCV 97.9 MCH 32.5 MCHC 33.2 RDW 12.6 Plt Count 146 L MPV 11.0 H Immature Gran % (Auto) 0.7 H Neut % (Auto) 72.1 Lymph % (Auto) 13.1 L [place] % (Auto) 13.4 H Eos % (Auto) 0.5 Baso % (Auto) 0.2 Lymph # (Auto) 1.98 [place] # (Auto) 2.0 H Eos # (Auto) 0.1 Baso # (Auto) 0.0 Abs Immat Gran (auto) 0.10 H Absolute Neuts (auto) 10.9 H Absolute Nucleated RBC 0.000 Nucleated RBC % 0.0 Sodium 133 L Potassium 4.3 Chloride 101 Carbon Dioxide 25 Anion Gap 7 BUN 10 Creatinine 0.64 L Estim Creat Clear Calc 98 Estimated GFR > 60 Glucose 141 H Lactic Acid 1.1 Calcium 8.7 Total Bilirubin 0.8 AST 31 ALT 15 Alkaline Phosphatase 43 Total Protein 6.6 Albumin 3.5 Urine Color Yellow Urine Appearance Clear Urine pH 6.0 Ur Specific [place] 1.021 Urine Protein Trace Urine Glucose (UA) Negative Urine Ketones 1+ H Ur Blood (Man) Negative Urine Nitrate Negative Urine Bilirubin Negative Urine Urobilinogen 1.0 Leukocyte Esterase Rfl Trace H Urine RBC 0-2 Urine WBC 0-5 Ur Squamous Epith Cells None seen Urine Bacteria None seen Urine Casts 0-2
[2024-10-19 20:04] VITALS: BP 110/73; PULSE 104; RESP 18; TEMP 36.6; O2SAT 96
[2024-10-19] MEDS: TAMSULOSIN HCL 0.4 MG CAPSULE PO (20:57)
[2024-10-20 04:49] VITALS: BP 118/53; PULSE 94; RESP 16; TEMP 36.8; O2SAT 91
[2024-10-20 06:36] LABS: Hematocrit 28.6 % (42.0-52.0); Hemoglobin 9.5 g/dL (14.0-18.0); Immature Granulocyte Percent A 0.9 % (0-0.5); Lymphocytes Absolute Auto 2.04 K/mm3 (0.9-3.2); Mean Corpuscular HGB Conc 33.2 g/dl (32-36); Mean Corpuscular Hemoglobin 32.4 pg (26-34); Mean Corpuscular Volume 97.6 fl (80-100); Nucleated Red Blood Cells Absolute Auto 0.000 K/mm3 (0.0-0.012); Nucleated Red Blood Cells Perc 0.0 % (0.0-0.2); Platelet Count Result 149 k/mm3 (150-375); Red Blood Count 2.93 M/mm3 (4.6-6.20); White Blood Count 13.6 K/mm3 (4.5-10.0)
[2024-10-20 06:56] LABS: Alanine Aminotransferase 15 U/L (6-50); Albumin Level 3.2 g/dL (3.5-5.1); Alkaline Phosphatase 55 U/L (38-126); Anion Gap 7 mmol/L (4-12); Aspartate Amino Transferase 24 U/L (17-59); Bilirubin,Total 0.8 mg/dL (0.2-1.3); Blood Urea Nitrogen 11 mg/dL (9-20); Calcium 8.6 mg/dL (8.4-10.2); Carbon Dioxide 23 mmol/L (22-30); Chloride 101 mmol/L (98-107); Estimated CRCL calculation 112 ml/min; Estimated Glomerular Filt Rate > 60; Glucose 128 mg/dL (65-110); Potassium 3.9 mmol/L (3.4-5.0); Sodium 131 mmol/L (137-145); Total Protein 6.1 g/dL (6.3-8.2)
--- NOTE | 2024-10-20 07:19 | P.PNIM_ITS ---
Progress Note: A&P Assessment and Plan (1) Sepsis: Code(s): A41.9 - Sepsis, unspecified organism Status: Acute Assessment and Plan: * Meets SIRS criteria: Tachycardia, leukocytosis * lactic acid: 1.1 * suspected source: Unknown * blood cultures drawn on 10/18 -pending * UA: Unremarkable for infection * Urine culture not indicated * CXR: No acute findings * 1000ml NS @ 100ml/hr * WBC decreased from 15.2 to 13.6 (2) Closed intertrochanteric fracture of left femur: Qualifiers: Encounter type: subsequent encounter Fracture alignment: displaced Fracture healing: with routine healing Qualified Code(s): S72.142D - Displaced intertrochanteric fracture of left femur, subsequent encounter for closed fracture with routine healing Code(s): S72.142A - Displaced intertrochanteric fracture of left femur, initial encounter for closed fracture Status: Acute Assessment and Plan: * Mechanical fall at home after patient tripped and fell onto his left side, denies striking his head or losing consciousness * Hip and pelvis XR: Mildly displaced left femoral intertrochanteric fracture with slight varus angulation. * Ortho consulted surgical in non operative treatment options or offered * Patient desires operative treatment at this time * Plan for intramedullary nail fixation of the left intertrochanteric hip fracture * NPO until surgery * Consider treatment, pain control, mechanical DVT prophylaxis * Morphine 2mg IV q4hr, [place] 5-325 * On schedule for L Intertrochanteric Nail @ 1500 * POD 10/17.25: Left hip intramedullary hip screw. * Post op care per ortho * Pain medications: [place] 5-325mg PO Q4H KP and PRN, Morphine 2mg IV Q1H PRN . * IV cefazolin * Ice pack * PT/OT -recommending further skilled rehab * Working closely with care coordination regarding outpatient placement * No acute overnight changes (3) Ground-level fall: Code(s): W18.30XA - Fall on same level, unspecified, initial encounter Status: Acute Assessment and Plan: * See above (4) Hyperlipidemia: Qualifiers: Hyperlipidemia type: mixed hyperlipidemia Qualified Code(s): E78.2 - Mixed hyperlipidemia Code(s): E78.5 - Hyperlipidemia, unspecified Status: Acute Assessment and Plan: * Will restart at home medications after procedure (5) HTN (hypertension), benign: Code(s): I10 - Essential (primary) hypertension Status: Acute Assessment and Plan: * Stable, non-medicated * 118/53 Subjective Date/time seen: 10/20/24 07:19 Interval history: 78-year-old male with a pmhx of aortic stenosis, HTN, and prediabetes who presents to the hospital after a mechanical fall that occurred at home. 10/20/2024 POD (10/17/2024) Left hip intramedullary hip screw. Accompanied by at time of exam. Currently working with physical therapy. Still endorsing some hip discomfort postprocedure, but otherwise has no complaints. Vital signs remained stable and WBC down from 15.2 to 13.6. Blood culture still pending for sepsis rule out. Patient has no complaints or concerns. Pending placement for continued rehab in the outpatient setting. Review of Systems Review of Systems: All systems reviewed & are unremarkable except as noted in HPI and below Exam Narrative: Gen - well appearing male in no acute respiratory distress who is nontoxic- appearing lying semi recumbent in bed HEENT - normocephalic. Atraumatic. Pupils equal round and reactive. Extraocular motions intact. Nares patent. Oropharynx was clear. Moist mucous membranes. No facial asymmetry. Neck - neck was supple. No dominant adenopathy, thyromegaly or masses. Chest - lungs are clear to auscultation bilaterally. No wheezes or crackles. CV - heart was regular rate and rhythm. S1-S2. No murmurs gallops or rubs. Abd - abdomen was soft. Nontender. Nondistended. Positive bowel sounds. No organomegaly or masses. Ext - TTP over surgical site. Dressing looks clean, dry and intact. No clubbing, cyanosis or edema. 2+ DP pulses bilaterally. Neuro - patient is alert and oriented x4. Strength is 5/5 in both upper and lower extremities. Cranial nerves 2-12 are intact. Speech is clear. Psych - normal mood and affect. Patient is pleasant and cooperative. Skin - warm and dry. No rashes noted. Objective Data Vital Signs Vital Signs: Vital Signs - 24 hr 10/19/24 08:00 10/19/24 14:00 10/19/24 20:04 Temperature 97.9 F 97.9 F Pulse Rate 95 104 H Respiratory Rate 16 18 Blood Pressure 105/49 L 110/73 Pulse Oximetry 93 96 Oxygen Delivery Room Air 10/19/24 21:00 10/20/24 04:49 Temperature 98.3 F Pulse Rate 94 Respiratory Rate 16 Blood Pressure 118/53 L Pulse Oximetry 91 Oxygen Delivery Room Air Intake/Output Intake/Output: Intake & Output 10/17/24 10/18/24 10/19/24 10/20/24 23:59 23:59 23:59 23:59 Intake Total 540 1427 1920 Output Total 950 1500 300 Balance 540 477 420 -300 Meds/Results Medications: Active Medications Generic Name Dose Route Start Last Admin Trade Name Freq PRN Reason Stop Dose Admin Acetaminophen 650 mg 10/17/24 04:56 Acetaminophen 325 Mg Tablet PO Q4H PRN Mild Pain (1-3) or Fever Al Hydrox/Mg Hydrox/Simethicone 30 ml 10/17/24 17:22 Mag Hydrox/Al Hydrox/Simeth 30 Ml Udc PO Q6H PRN Indigestion Aspirin 81 mg 10/18/24 09:00 10/19/24 08:14 Aspirin 81 Mg Chewable Tablet PO 81 mg DAILY KP Administration Cyanocobalamin 1,000 mcg 10/18/24 09:00 10/19/24 08:14 Cyanocobalamin 1,000 Mcg Tablet PO 1,000 mcg DAILY KP Administration Cyclobenzaprine HCl 10 mg 10/17/24 17:22 Cyclobenzaprine Hcl 10 Mg Tablet PO Q8H PRN Muscle Spasm Fish Oil 3 gm 10/18/24 09:00 10/19/24 08:14 [place] 3 Polyunsat Fatty Acids 1 Gm Cap PO 3 gm DAILY KP Administration Folic Acid 1 mg 10/18/24 09:00 10/19/24 08:15 Folic Acid 1 Mg Tablet PO 1 mg DAILY KP Administration Hydroxyzine Pamoate 50 mg 10/17/24 17:22 Hydroxyzine Pamoate 25 Mg Capsule PO Q4H PRN Itching Ibuprofen 800 mg in 200 mls @ 400 mls/hr 10/17/24 17:22 10/17/24 18:12 Caldolor 800 Mg/200 Ml IVPB 400 mls/hr Q6H PRN Administration Breakthrough Pain Rated 1-3 or NPO Magnesium Hydroxide 30 ml 10/17/24 17:22 Magnesium Hydroxide Susp 30 Ml Udc PO BID PRN Constipation Morphine Sulfate 2 mg 10/17/24 09:27 10/19/24 08:17 Morphine Sulfate (*Crx) 2 Mg/Ml Inj IV PUSH 2 mg Q4H PRN Administration Pain Rated 7-10 Multivitamins Therapeutic 1 tablet 10/18/24 09:00 10/19/24 08:14 Multivitamins Therapeutic Tab (*Bkc) PO 1 tablet DAILY KP Administration Naloxone HCl 0.1 mg 10/17/24 17:22 Naloxone Hcl 0.4 Mg/Ml Vial IV PUSH Q2M PRN Opiate Reversal Olmesartan 10 mg 10/18/24 09:00 10/19/24 08:14 Olmesartan Medoxomil 10 Mg Tablet PO 10 mg DAILY KP Administration Ondansetron HCl 4 mg 10/17/24 04:56 Ondansetron Inj 4 Mg/2 Ml Vial IV PUSH Q4H PRN Nausea Oxycodone/Acetaminophen 1 tab 10/19/24 17:29 Oxycodone/Acetaminophen (*Crx) 10-325 Mg Tablet PO Q6H PRN Pain Rated 7-10 Polyethylene Glycol 17 gm 10/18/24 09:00 10/19/24 08:15 Polyethylene Glycol 3350 17 Gm Powd.Pack PO 17 gm QAM KP Administration Rivaroxaban 10 mg 10/19/24 17:00 10/19/24 16:04 Rivaroxaban 10 Mg Tablet PO 10 mg DAILY@1700 KP Administration Rosuvastatin Calcium 20 mg 10/18/24 09:00 10/19/24 08:14 Rosuvastatin 20 Mg Tablet PO 20 mg QAM KP Administration Senna/Docusate Sodium 2 tab 10/17/24 17:22 10/19/24 16:03 Senna/Docusate Sodium Tablet PO 2 tab BID KP Administration Tamsulosin HCl 0.4 mg 10/17/24 21:00 10/19/24 20:57 Tamsulosin Hcl 0.4 Mg Capsule PO 0.4 mg HS KP Administration Vitamin D 125 mcg 10/18/24 09:00 10/19/24 08:14 Cholecalciferol (Vitamin D3) 125 Mcg (5,000 Units) Tablet PO 125 mcg DAILY KP Administration Radiology Results: ITS Impressions Hip/Pelvis X-Ray 10/17/24 06:58 Impression: 1: Mildly displaced left femoral intertrochanteric fracture with slight varus angulation. Chest X-Ray 10/18/24 22:34 IMPRESSION: No focal infiltrate or effusion. Labs Labs: Laboratory Results - last 24 hr 10/19/24 10/20/24 08:36 05:48 WBC 15.2 H 13.6 H RBC 3.38 L 2.93 L Hgb 11.0 L 9.5 L Hct 33.1 L 28.6 L MCV 97.9 97.6 MCH 32.5 32.4 MCHC 33.2 33.2 RDW 12.6 12.7 Plt Count 146 L 149 L MPV 11.0 H 11.5 H Immature Gran % (Auto) 0.7 H 0.9 H Neut % (Auto) 72.1 69.3 Lymph % (Auto) 13.1 L 15.0 L [place] % (Auto) 13.4 H 14.0 H Eos % (Auto) 0.5 0.7 Baso % (Auto) 0.2 0.1 L Lymph # (Auto) 1.98 2.04 [place] # (Auto) 2.0 H 1.9 H Eos # (Auto) 0.1 0.1 Baso # (Auto) 0.0 0.0 Abs Immat Gran (auto) 0.10 H 0.12 H Absolute Neuts (auto) 10.9 H 9.5 H Absolute Nucleated RBC 0.000 0.000 Nucleated RBC % 0.0 0.0 Sodium 133 L 131 L Potassium 4.3 3.9 Chloride 101 101 Carbon Dioxide 25 23 Anion Gap 7 7 BUN 10 11 Creatinine 0.64 L 0.55 L Estim Creat Clear Calc 98 112 Estimated GFR > 60 > 60 Glucose 141 H 128 H Calcium 8.7 8.6 Total Bilirubin 0.8 0.8 AST 31 24 ALT 15 15 Alkaline Phosphatase 43 55 Total Protein 6.6 6.1 L Albumin 3.5 3.2 L Quality VTE Prophylaxis VTE prophylaxis: mechanical ordered
[2024-10-20] MEDS: MULTIVITAMINS THERAPEUTIC TAB (*BKC) 1 TABLET PO (08:53)
[2024-10-20] MEDS: OMEGA 3 POLYUNSAT FATTY ACIDS 1 GM CAP 3 GM PO (08:53)
[2024-10-20] MEDS: oxyCODONE/ACETAMINOPHEN (*CRX) 10-325 MG TABLET 1 TAB PO ×2 (08:53→20:08)
[2024-10-20] MEDS: FOLIC ACID 1 MG TABLET PO (08:53)
[2024-10-20] MEDS: OLMESARTAN MEDOXOMIL 10 MG TABLET PO (08:53)
[2024-10-20] MEDS: ASPIRIN 81 MG CHEWABLE TABLET PO (08:54)
[2024-10-20] MEDS: ROSUVASTATIN 20 MG TABLET PO (08:54)
[2024-10-20] MEDS: CYANOCOBALAMIN 1,000 MCG TABLET 1000 MCG PO (08:54)
[2024-10-20] MEDS: CHOLECALCIFEROL (VITAMIN D3) 125 MCG (5,000 UNITS) TABLET PO (08:54)
[2024-10-20] MEDS: SENNA/DOCUSATE SODIUM TABLET 2 TAB PO ×2 (08:54→16:45)
--- NOTE | 2024-10-20 09:15 | P.PNOP_ITS ---
Progress Note: A&P Assessment and Plan (1) Closed intertrochanteric fracture of left femur: Qualifiers: Encounter type: subsequent encounter Fracture alignment: displaced Fracture healing: with routine healing Qualified Code(s): S72.142D - Displaced intertrochanteric fracture of left femur, subsequent encounter for closed fracture with routine healing Code(s): S72.142A - Displaced intertrochanteric fracture of left femur, initial encounter for closed fracture Status: Acute Assessment and Plan: Postop day 3 left hip intramedullary nail. Still with pain left hip. IV Ibuprofen added. PT/OT with weight-bearing as tolerated. Pain control. DVT prophylaxis with aspirin and Xarelto. Will require rehab for gait, balance, strengthening and ADLs. Subjective Subjective Date/Time Seen: 10/20/24 09:15 Post Op day: 3 Principal diagnosis: Lt hip IT fx Interval history: complains of pain left hip. No problems overnight. Tolerating diet. Exam Const: General: comfortable; No acute distress Resp: Effort & Inspection: normal respiratory effort and no audible wheezes Extrem: Right lower extremity: lower leg ( Negative Homans sign), ankle Details: normal ROM ( dorsiflexion and plantar flexion intact) and foot Details: vascular exam Details: dorsalis pedis pulse present and normal capillary refill, tendon exam Details: active flexion normal and active extension normal and motor-sensory exam Details: light-touch normal Location: in all toes; no edema Left lower extremity: normal to inspection, hip/thigh Details: other ( left hip dressing clean dry and intact. Thigh muscle soft.), ankle Details: pitting edema Details: pitting and 2+ and normal ROM and foot Details: abnormal to inspection Details: a deformity ( cavovarus foot), vascular exam Details: dorsalis pedis pulse present and normal capillary refill and motor-sensory exam light-touch normal in all toes; no edema Objective Data Vital Signs Vital Signs: Vital Signs - 24 hr 10/19/24 14:00 10/19/24 20:04 10/19/24 21:00 Temperature 97.9 F 97.9 F Pulse Rate 95 104 H Respiratory Rate 16 18 Blood Pressure 105/49 L 110/73 Pulse Oximetry 93 96 Oxygen Delivery Room Air 10/20/24 04:49 Temperature 98.3 F Pulse Rate 94 Respiratory Rate 16 Blood Pressure 118/53 L Pulse Oximetry 91 Oxygen Delivery Intake/Output Intake/Output: Intake & Output 10/17/24 10/18/24 10/19/24 10/20/24 23:59 23:59 23:59 23:59 Intake Total 540 1427 1920 Output Total 950 1500 300 Balance 540 477 420 -300 Meds/Results Medications: Active Medications Generic Name Dose Route Start Last Admin Trade Name Freq PRN Reason Stop Dose Admin Acetaminophen 650 mg 10/17/24 04:56 Acetaminophen 325 Mg Tablet PO Q4H PRN Mild Pain (1-3) or Fever Al Hydrox/Mg Hydrox/Simethicone 30 ml 10/17/24 17:22 Mag Hydrox/Al Hydrox/Simeth 30 Ml Udc PO Q6H PRN Indigestion Aspirin 81 mg 10/18/24 09:00 10/20/24 08:54 Aspirin 81 Mg Chewable Tablet PO 81 mg DAILY KP Administration Cyanocobalamin 1,000 mcg 10/18/24 09:00 10/20/24 08:54 Cyanocobalamin 1,000 Mcg Tablet PO 1,000 mcg DAILY KP Administration Cyclobenzaprine HCl 10 mg 10/17/24 17:22 Cyclobenzaprine Hcl 10 Mg Tablet PO Q8H PRN Muscle Spasm Fish Oil 3 gm 10/18/24 09:00 10/20/24 08:53 [place] 3 Polyunsat Fatty Acids 1 Gm Cap PO 3 gm DAILY KP Administration Folic Acid 1 mg 10/18/24 09:00 10/20/24 08:53 Folic Acid 1 Mg Tablet PO 1 mg DAILY KP Administration Hydroxyzine Pamoate 50 mg 10/17/24 17:22 Hydroxyzine Pamoate 25 Mg Capsule PO Q4H PRN Itching Ibuprofen 800 mg in 200 mls @ 400 mls/hr 10/17/24 17:22 10/17/24 18:12 Caldolor 800 Mg/200 Ml IVPB 400 mls/hr Q6H PRN Administration Breakthrough Pain Rated 1-3 or NPO Magnesium Hydroxide 30 ml 10/17/24 17:22 Magnesium Hydroxide Susp 30 Ml Udc PO BID PRN Constipation Morphine Sulfate 2 mg 10/17/24 09:27 10/19/24 08:17 Morphine Sulfate (*Crx) 2 Mg/Ml Inj IV PUSH 2 mg Q4H PRN Administration Pain Rated 7-10 Multivitamins Therapeutic 1 tablet 10/18/24 09:00 10/20/24 08:53 Multivitamins Therapeutic Tab (*Bkc) PO 1 tablet DAILY KP Administration Naloxone HCl 0.1 mg 10/17/24 17:22 Naloxone Hcl 0.4 Mg/Ml Vial IV PUSH Q2M PRN Opiate Reversal Olmesartan 10 mg 10/18/24 09:00 10/20/24 08:53 Olmesartan Medoxomil 10 Mg Tablet PO 10 mg DAILY KP Administration Ondansetron HCl 4 mg 10/17/24 04:56 Ondansetron Inj 4 Mg/2 Ml Vial IV PUSH Q4H PRN Nausea Oxycodone/Acetaminophen 1 tab 10/19/24 17:29 10/20/24 08:53 Oxycodone/Acetaminophen (*Crx) 10-325 Mg Tablet PO 1 tab Q6H PRN Administration Pain Rated 7-10 Polyethylene Glycol 17 gm 10/18/24 09:00 10/20/24 08:52 Polyethylene Glycol 3350 17 Gm Powd.Pack PO 17 gm QAM KP Administration Rivaroxaban 10 mg 10/19/24 17:00 10/19/24 16:04 Rivaroxaban 10 Mg Tablet PO 10 mg DAILY@1700 KP Administration Rosuvastatin Calcium 20 mg 10/18/24 09:00 10/20/24 08:54 Rosuvastatin 20 Mg Tablet PO 20 mg QAM KP Administration Senna/Docusate Sodium 2 tab 10/17/24 17:22 10/20/24 08:54 Senna/Docusate Sodium Tablet PO 2 tab BID KP Administration Tamsulosin HCl 0.4 mg 10/17/24 21:00 10/19/24 20:57 Tamsulosin Hcl 0.4 Mg Capsule PO 0.4 mg HS KP Administration Vitamin D 125 mcg 10/18/24 09:00 10/20/24 08:54 Cholecalciferol (Vitamin D3) 125 Mcg (5,000 Units) Tablet PO 125 mcg DAILY KP Administration Radiology Results: ITS Impressions Hip/Pelvis X-Ray 10/17/24 06:58 Impression: 1: Mildly displaced left femoral intertrochanteric fracture with slight varus angulation. Chest X-Ray 10/18/24 22:34 IMPRESSION: No focal infiltrate or effusion. Labs Labs: Laboratory Results - last 24 hr 10/19/24 10/20/24 08:36 05:48 WBC 13.6 H RBC 2.93 L Hgb 9.5 L Hct 28.6 L MCV 97.6 MCH 32.4 MCHC 33.2 RDW 12.7 Plt Count 149 L MPV 11.5 H Immature Gran % (Auto) 0.9 H Neut % (Auto) 69.3 Lymph % (Auto) 15.0 L [place] % (Auto) 14.0 H Eos % (Auto) 0.7 Baso % (Auto) 0.1 L Lymph # (Auto) 2.04 [place] # (Auto) 1.9 H Eos # (Auto) 0.1 Baso # (Auto) 0.0 Abs Immat Gran (auto) 0.12 H Absolute Neuts (auto) 9.5 H Absolute Nucleated RBC 0.000 Nucleated RBC % 0.0 Sodium 133 L 131 L Potassium 4.3 3.9 Chloride 101 101 Carbon Dioxide 25 23 Anion Gap 7 7 BUN 10 11 Creatinine 0.64 L 0.55 L Estim Creat Clear Calc 98 112 Estimated GFR > 60 > 60 Glucose 141 H 128 H Calcium 8.7 8.6 Total Bilirubin 0.8 0.8 AST 31 24 ALT 15 15 Alkaline Phosphatase 43 55 Total Protein 6.6 6.1 L Albumin 3.5 3.2 L
[2024-10-20 14:00] VITALS: BP 109/45; PULSE 82; RESP 20; TEMP 36.8; O2SAT 94
[2024-10-20] MEDS: RIVAROXABAN 10 MG TABLET PO (16:45)
[2024-10-20] MEDS: TAMSULOSIN HCL 0.4 MG CAPSULE PO (20:08)
[2024-10-20 21:01] VITALS: PULSE 87; RESP 16; TEMP 36.6; O2SAT 95
[2024-10-20 21:11] VITALS: BP 90/62
[2024-10-20 21:50] VITALS: O2SAT 92
[2024-10-21 05:39] LABS: Hematocrit 27.5 % (42.0-52.0); Hemoglobin 9.1 g/dL (14.0-18.0); Immature Granulocyte Percent A 1.0 % (0-0.5); Lymphocytes Absolute Auto 1.96 K/mm3 (0.9-3.2); Mean Corpuscular HGB Conc 33.1 g/dl (32-36); Mean Corpuscular Hemoglobin 32.6 pg (26-34); Mean Corpuscular Volume 98.6 fl (80-100); Nucleated Red Blood Cells Absolute Auto 0.000 K/mm3 (0.0-0.012); Nucleated Red Blood Cells Perc 0.0 % (0.0-0.2); Platelet Count Result 165 k/mm3 (150-375); Red Blood Count 2.79 M/mm3 (4.6-6.20); White Blood Count 11.5 K/mm3 (4.5-10.0)
[2024-10-21 06:00] VITALS: BP 108/49; PULSE 79; RESP 16; TEMP 36.4; O2SAT 92
[2024-10-21 06:04] LABS: Alanine Aminotransferase 44 U/L (6-50); Albumin Level 3.1 g/dL (3.5-5.1); Alkaline Phosphatase 66 U/L (38-126); Anion Gap 6 mmol/L (4-12); Aspartate Amino Transferase 49 U/L (17-59); Bilirubin,Total 0.9 mg/dL (0.2-1.3); Blood Urea Nitrogen 18 mg/dL (9-20); Calcium 8.4 mg/dL (8.4-10.2); Carbon Dioxide 24 mmol/L (22-30); Chloride 101 mmol/L (98-107); Estimated CRCL calculation 94 ml/min; Estimated Glomerular Filt Rate > 60; Glucose 117 mg/dL (65-110); Potassium 3.8 mmol/L (3.4-5.0); Sodium 131 mmol/L (137-145); Total Protein 6.0 g/dL (6.3-8.2)
--- NOTE | 2024-10-21 07:22 | P.PNIM_ITS ---
Progress Note: A&P Assessment and Plan (1) Sepsis: Code(s): A41.9 - Sepsis, unspecified organism Status: Acute Assessment and Plan: * Meets SIRS criteria: Tachycardia, leukocytosis * Likely post-surgical pathological response * lactic acid: 1.1 * suspected source: Unknown * blood cultures drawn on 10/18 -pending * UA: Unremarkable for infection * Urine culture not indicated * CXR: No acute findings * WBC decreased from 15.2 to 13.6 -> 11.5 (2) Closed intertrochanteric fracture of left femur: Qualifiers: Encounter type: subsequent encounter Fracture alignment: displaced Fracture healing: with routine healing Qualified Code(s): S72.142D - Displaced intertrochanteric fracture of left femur, subsequent encounter for closed fracture with routine healing Code(s): S72.142A - Displaced intertrochanteric fracture of left femur, initial encounter for closed fracture Status: Acute Assessment and Plan: * Mechanical fall at home after patient tripped and fell onto his left side, denies striking his head or losing consciousness * Hip and pelvis XR: Mildly displaced left femoral intertrochanteric fracture with slight varus angulation. * Ortho consulted surgical in non operative treatment options or offered * Patient desires operative treatment at this time * Plan for intramedullary nail fixation of the left intertrochanteric hip fracture * NPO until surgery * Consider treatment, pain control, mechanical DVT prophylaxis * Morphine 2mg IV q4hr, [place] 5-325 * On schedule for L Intertrochanteric Nail @ 1500 * POD 8/.25: Left hip intramedullary hip screw. * Post op care per ortho * Pain medications: [place] 5-325mg PO Q4H KP and PRN, Morphine 2mg IV Q1H PRN . * IV cefazolin * Ice pack * PT/OT -recommending further skilled rehab * Working closely with care coordination regarding outpatient placement * No acute overnight changes (3) Ground-level fall: Code(s): W18.30XA - Fall on same level, unspecified, initial encounter Status: Acute Assessment and Plan: * See above (4) Hyperlipidemia: Qualifiers: Hyperlipidemia type: mixed hyperlipidemia Qualified Code(s): E78.2 - Mixed hyperlipidemia Code(s): E78.5 - Hyperlipidemia, unspecified Status: Acute Assessment and Plan: * Will restart at home medications after procedure (5) HTN (hypertension), benign: Code(s): I10 - Essential (primary) hypertension Status: Acute Assessment and Plan: * Stable, non-medicated * 108/49 Subjective Date/time seen: 10/21/24 07:22 Interval history: 78-year-old male with a pmhx of aortic stenosis, HTN, and prediabetes who presents to the hospital after a mechanical fall that occurred at home. 10/21/2024 POD (10/17/2024) Left hip intramedullary hip screw. Continues to endorse surgical site soreness and pain with movements of the left hip while working with PT/OT, but no unexpected changes or pain. Remains afebrile, leukocytosis improving (15.2 -> 11.5). Blood cultures still pending. Will continue to monitor while CC works on placement for rehab. Review of Systems Review of Systems: All systems reviewed & are unremarkable except as noted in HPI and below Exam Narrative: Gen - well appearing male in no acute respiratory distress who is nontoxic- appearing lying semi recumbent in bed HEENT - normocephalic. Atraumatic. Pupils equal round and reactive. Extraocular motions intact. Nares patent. Oropharynx was clear. Moist mucous membranes. No facial asymmetry. Neck - neck was supple. No dominant adenopathy, thyromegaly or masses. Chest - lungs are clear to auscultation bilaterally. No wheezes or crackles. CV - heart was regular rate and rhythm. S1-S2. No murmurs gallops or rubs. Abd - abdomen was soft. Nontender. Nondistended. Positive bowel sounds. No organomegaly or masses. Ext - TTP over surgical site. Dressing looks clean, dry and intact. No clubbing, cyanosis or edema. 2+ DP pulses bilaterally. Neuro - patient is alert and oriented x4. Strength is 5/5 in both upper and lower extremities. Cranial nerves 2-12 are intact. Speech is clear. Psych - normal mood and affect. Patient is pleasant and cooperative. Skin - warm and dry. No rashes noted. Objective Data Vital Signs Vital Signs: Vital Signs - 24 hr 10/20/24 08:00 10/20/24 14:00 10/20/24 21:01 Temperature 98.3 F 97.8 F Pulse Rate 82 87 Respiratory Rate 20 16 Blood Pressure 109/45 L Pulse Oximetry 94 95 Oxygen Delivery Room Air 10/20/24 21:11 10/20/24 21:50 10/21/24 06:00 Temperature 97.5 F L Pulse Rate 79 Respiratory Rate 16 Blood Pressure 90/62 L 108/49 L Pulse Oximetry 92 92 Oxygen Delivery Room Air Intake/Output Intake/Output: Intake & Output 10/18/24 10/19/24 10/20/24 10/21/24 23:59 23:59 23:59 23:59 Intake Total 1427 1920 970 100 Output Total 950 1500 600 450 Balance 477 420 370 -350 Meds/Results Medications: Active Medications Generic Name Dose Route Start Last Admin Trade Name Freq PRN Reason Stop Dose Admin Acetaminophen 650 mg 10/17/24 04:56 Acetaminophen 325 Mg Tablet PO Q4H PRN Mild Pain (1-3) or Fever Al Hydrox/Mg Hydrox/Simethicone 30 ml 10/17/24 17:22 Mag Hydrox/Al Hydrox/Simeth 30 Ml Udc PO Q6H PRN Indigestion Aspirin 81 mg 10/18/24 09:00 10/20/24 08:54 Aspirin 81 Mg Chewable Tablet PO 81 mg DAILY KP Administration Cyanocobalamin 1,000 mcg 10/18/24 09:00 10/20/24 08:54 Cyanocobalamin 1,000 Mcg Tablet PO 1,000 mcg DAILY KP Administration Cyclobenzaprine HCl 10 mg 10/17/24 17:22 Cyclobenzaprine Hcl 10 Mg Tablet PO Q8H PRN Muscle Spasm Fish Oil 3 gm 10/18/24 09:00 10/20/24 08:53 [place] 3 Polyunsat Fatty Acids 1 Gm Cap PO 3 gm DAILY KP Administration Folic Acid 1 mg 10/18/24 09:00 10/20/24 08:53 Folic Acid 1 Mg Tablet PO 1 mg DAILY KP Administration Hydroxyzine Pamoate 50 mg 10/17/24 17:22 Hydroxyzine Pamoate 25 Mg Capsule PO Q4H PRN Itching Ibuprofen 800 mg in 200 mls @ 400 mls/hr 10/17/24 17:22 10/17/24 18:12 Caldolor 800 Mg/200 Ml IVPB 400 mls/hr Q6H PRN Administration Breakthrough Pain Rated 1-3 or NPO Magnesium Hydroxide 30 ml 10/17/24 17:22 Magnesium Hydroxide Susp 30 Ml Udc PO BID PRN Constipation Morphine Sulfate 2 mg 10/17/24 09:27 10/19/24 08:17 Morphine Sulfate (*Crx) 2 Mg/Ml Inj IV PUSH 2 mg Q4H PRN Administration Pain Rated 7-10 Multivitamins Therapeutic 1 tablet 10/18/24 09:00 10/20/24 08:53 Multivitamins Therapeutic Tab (*Bkc) PO 1 tablet DAILY KP Administration Naloxone HCl 0.1 mg 10/17/24 17:22 Naloxone Hcl 0.4 Mg/Ml Vial IV PUSH Q2M PRN Opiate Reversal Olmesartan 10 mg 10/18/24 09:00 10/20/24 08:53 Olmesartan Medoxomil 10 Mg Tablet PO 10 mg DAILY KP Administration Ondansetron HCl 4 mg 10/17/24 04:56 Ondansetron Inj 4 Mg/2 Ml Vial IV PUSH Q4H PRN Nausea Oxycodone/Acetaminophen 1 tab 10/19/24 17:29 10/20/24 20:08 Oxycodone/Acetaminophen (*Crx) 10-325 Mg Tablet PO 1 tab Q6H PRN Administration Pain Rated 7-10 Polyethylene Glycol 17 gm 10/18/24 09:00 10/20/24 08:52 Polyethylene Glycol 3350 17 Gm Powd.Pack PO 17 gm QAM KP Administration Rivaroxaban 10 mg 10/19/24 17:00 10/20/24 16:45 Rivaroxaban 10 Mg Tablet PO 10 mg DAILY@1700 KP Administration Rosuvastatin Calcium 20 mg 10/18/24 09:00 10/20/24 08:54 Rosuvastatin 20 Mg Tablet PO 20 mg QAM KP Administration Senna/Docusate Sodium 2 tab 10/17/24 17:22 10/20/24 16:45 Senna/Docusate Sodium Tablet PO 2 tab BID KP Administration Tamsulosin HCl 0.4 mg 10/17/24 21:00 10/20/24 20:08 Tamsulosin Hcl 0.4 Mg Capsule PO 0.4 mg HS KP Administration Vitamin D 125 mcg 10/18/24 09:00 10/20/24 08:54 Cholecalciferol (Vitamin D3) 125 Mcg (5,000 Units) Tablet PO 125 mcg DAILY KP Administration Radiology Results: ITS Impressions Hip/Pelvis X-Ray 10/17/24 06:58 Impression: 1: Mildly displaced left femoral intertrochanteric fracture with slight varus angulation. Chest X-Ray 10/18/24 22:34 IMPRESSION: No focal infiltrate or effusion. Labs Labs: Laboratory Results - last 24 hr 10/21/24 04:59 WBC 11.5 H RBC 2.79 L Hgb 9.1 L Hct 27.5 L MCV 98.6 MCH 32.6 MCHC 33.1 RDW 12.8 Plt Count 165 MPV 11.0 H Immature Gran % (Auto) 1.0 H Neut % (Auto) 62.9 Lymph % (Auto) 17.1 L [place] % (Auto) 14.5 H Eos % (Auto) 4.2 Baso % (Auto) 0.3 Lymph # (Auto) 1.96 [place] # (Auto) 1.7 H Eos # (Auto) 0.5 H Baso # (Auto) 0.0 Abs Immat Gran (auto) 0.12 H Absolute Neuts (auto) 7.2 H Absolute Nucleated RBC 0.000 Nucleated RBC % 0.0 Sodium 131 L Potassium 3.8 Chloride 101 Carbon Dioxide 24 Anion Gap 6 BUN 18 Creatinine 0.67 L Estim Creat Clear Calc 94 Estimated GFR > 60 Glucose 117 H Calcium 8.4 Total Bilirubin 0.9 AST 49 ALT 44 Alkaline Phosphatase 66 Total Protein 6.0 L Albumin 3.1 L Quality VTE Prophylaxis VTE prophylaxis: mechanical ordered
[2024-10-21] MEDS: oxyCODONE/ACETAMINOPHEN (*CRX) 10-325 MG TABLET 1 TAB PO (08:37)
[2024-10-21] MEDS: SENNA/DOCUSATE SODIUM TABLET 2 TAB PO (08:38)
[2024-10-21] MEDS: OMEGA 3 POLYUNSAT FATTY ACIDS 1 GM CAP 3 GM PO (08:38)
[2024-10-21] MEDS: FOLIC ACID 1 MG TABLET PO (08:38)
[2024-10-21] MEDS: OLMESARTAN MEDOXOMIL 10 MG TABLET PO (08:38)
[2024-10-21] MEDS: ROSUVASTATIN 20 MG TABLET PO (08:38)
[2024-10-21] MEDS: ASPIRIN 81 MG CHEWABLE TABLET PO (08:38)
[2024-10-21] MEDS: MULTIVITAMINS THERAPEUTIC TAB (*BKC) 1 TABLET PO (08:38)
[2024-10-21] MEDS: CYANOCOBALAMIN 1,000 MCG TABLET 1000 MCG PO (08:38)
[2024-10-21] MEDS: CHOLECALCIFEROL (VITAMIN D3) 125 MCG (5,000 UNITS) TABLET PO (08:38)
--- NOTE | 2024-10-21 12:10 | P.PNOP_ITS ---
Progress Note: A&P Assessment and Plan (1) Closed intertrochanteric fracture of left femur: Qualifiers: Encounter type: subsequent encounter Fracture alignment: displaced Fracture healing: with routine healing Qualified Code(s): S72.142D - Displaced intertrochanteric fracture of left femur, subsequent encounter for closed fracture with routine healing Code(s): S72.142A - Displaced intertrochanteric fracture of left femur, initial encounter for closed fracture Status: Acute Assessment and Plan: POD #4: Left hip intramedullary nail. Continued left hip pain. Some improvement overnight. PT/OT with weight-bearing as tolerated. Pain control. DVT prophylaxis with aspirin and Xarelto. Will require rehab for gait, balance, strengthening and ADLs. Dispo: SNF for rehab Follow up outpatient. Plan Reviewed history, exam, radiographs and current labs with attending MD and covering surgeon, Dr. Pearson, who agrees with current plan as indicated above. No further recommendations from Dr. Pearson at this time. Subjective Subjective Date/Time Seen: 10/21/24 12:10 Post Op day: 4 Principal diagnosis: Lt hip IT fx Interval history: Continued complaints of pain left hip. No problems overnight. Tolerating diet. Review of Systems Review of Systems: All systems reviewed & are unremarkable except as noted in HPI and below Exam Const: General: comfortable; No acute distress Resp: Effort & Inspection: normal respiratory effort and no audible wheezes Extrem: Right lower extremity: lower leg ( Negative Homans sign), ankle Details: normal ROM ( dorsiflexion and plantar flexion intact) and foot Details: vascular exam Details: dorsalis pedis pulse present and normal capillary refill, tendon exam Details: active flexion normal and active extension normal and motor-sensory exam Details: light-touch normal Location: in all toes; no edema Left lower extremity: normal to inspection, hip/thigh Details: other ( left hip dressing clean dry and intact. Thigh muscle soft.), ankle Details: pitting edema Details: pitting and 2+ and normal ROM and foot Details: abnormal to inspection Details: a deformity ( cavovarus foot), vascular exam Details: dorsalis pedis pulse present and normal capillary refill and motor-sensory exam light-touch normal in all toes; no edema Objective Data Vital Signs Vital Signs: Vital Signs - 24 hr 10/20/24 14:00 10/20/24 21:01 10/20/24 21:11 Temperature 36.8 C 36.6 C Pulse Rate 82 87 Respiratory Rate 20 16 Blood Pressure 109/45 L 90/62 L Pulse Oximetry 94 95 Oxygen Delivery 10/20/24 21:50 10/21/24 06:00 10/21/24 08:00 Temperature 36.4 C L Pulse Rate 79 Respiratory Rate 16 Blood Pressure 108/49 L Pulse Oximetry 92 92 Oxygen Delivery Room Air Room Air Intake/Output Intake/Output: Intake & Output 10/18/24 10/19/24 10/20/24 10/21/24 23:59 23:59 23:59 23:59 Intake Total 1427 1920 970 340 Output Total 950 1500 600 600 Balance 477 420 370 -260 Meds/Results Medications: Active Medications Generic Name Dose Route Start Last Admin Trade Name Freq PRN Reason Stop Dose Admin Acetaminophen 650 mg 10/17/24 04:56 Acetaminophen 325 Mg Tablet PO Q4H PRN Mild Pain (1-3) or Fever Al Hydrox/Mg Hydrox/Simethicone 30 ml 10/17/24 17:22 Mag Hydrox/Al Hydrox/Simeth 30 Ml Udc PO Q6H PRN Indigestion Aspirin 81 mg 10/18/24 09:00 10/21/24 08:38 Aspirin 81 Mg Chewable Tablet PO 81 mg DAILY KP Administration Cyanocobalamin 1,000 mcg 10/18/24 09:00 10/21/24 08:38 Cyanocobalamin 1,000 Mcg Tablet PO 1,000 mcg DAILY KP Administration Cyclobenzaprine HCl 10 mg 10/17/24 17:22 Cyclobenzaprine Hcl 10 Mg Tablet PO Q8H PRN Muscle Spasm Fish Oil 3 gm 10/18/24 09:00 10/21/24 08:38 [place] 3 Polyunsat Fatty Acids 1 Gm Cap PO 3 gm DAILY KP Administration Folic Acid 1 mg 10/18/24 09:00 10/21/24 08:38 Folic Acid 1 Mg Tablet PO 1 mg DAILY KP Administration Hydroxyzine Pamoate 50 mg 10/17/24 17:22 Hydroxyzine Pamo[place] 25 Mg Capsule PO Q4H PRN Itching Ibuprofen 800 mg in 200 mls @ 400 mls/hr 10/17/24 17:22 10/17/24 18:12 Caldolor 800 Mg/200 Ml IVPB 400 mls/hr Q6H PRN Administration Breakthrough Pain Rated 1-3 or NPO Magnesium Hydroxide 30 ml 10/17/24 17:22 Magnesium Hydroxide Susp 30 Ml Udc PO BID PRN Constipation Morphine Sulfate 2 mg 10/17/24 09:27 10/19/24 08:17 Morphine Sulfate (*Crx) 2 Mg/Ml Inj IV PUSH 2 mg Q4H PRN Administration Pain Rated 7-10 Multivitamins Therapeutic 1 tablet 10/18/24 09:00 10/21/24 08:38 Multivitamins Therapeutic Tab (*Bkc) PO 1 tablet DAILY KP Administration Naloxone HCl 0.1 mg 10/17/24 17:22 Naloxone Hcl 0.4 Mg/Ml Vial IV PUSH Q2M PRN Opiate Reversal Olmesartan 10 mg 10/18/24 09:00 10/21/24 08:38 Olmesartan Medoxomil 10 Mg Tablet PO 10 mg DAILY KP Administration Ondansetron HCl 4 mg 10/17/24 04:56 Ondansetron Inj 4 Mg/2 Ml Vial IV PUSH Q4H PRN Nausea Oxycodone/Acetaminophen 1 tab 10/19/24 17:29 10/21/24 08:37 Oxycodone/Acetaminophen (*Crx) 10-325 Mg Tablet PO 1 tab Q6H PRN Administration Pain Rated 7-10 Polyethylene Glycol 17 gm 10/18/24 09:00 10/21/24 08:38 Polyethylene Glycol 3350 17 Gm Powd.Pack PO 17 gm QAM KP Administration Rivaroxaban 10 mg 10/19/24 17:00 10/20/24 16:45 Rivaroxaban 10 Mg Tablet PO 10 mg DAILY@1700 KP Administration Rosuvastatin Calcium 20 mg 10/18/24 09:00 10/21/24 08:38 Rosuvastatin 20 Mg Tablet PO 20 mg QAM KP Administration Senna/Docusate Sodium 2 tab 10/17/24 17:22 10/21/24 08:38 Senna/Docusate Sodium Tablet PO 2 tab BID KP Administration Tamsulosin HCl 0.4 mg 10/17/24 21:00 10/20/24 20:08 Tamsulosin Hcl 0.4 Mg Capsule PO 0.4 mg HS KP Administration Vitamin D 125 mcg 10/18/24 09:00 10/21/24 08:38 Cholecalciferol (Vitamin D3) 125 Mcg (5,000 Units) Tablet PO 125 mcg DAILY KP Administration Radiology Results: ITS Impressions Hip/Pelvis X-Ray 10/17/24 06:58 Impression: 1: Mildly displaced left femoral intertrochanteric fracture with slight varus angulation. Chest X-Ray 10/18/24 22:34 IMPRESSION: No focal infiltrate or effusion. Labs Labs: Laboratory Results - last 24 hr 10/21/24 04:59 WBC 11.5 H RBC 2.79 L Hgb 9.1 L Hct 27.5 L MCV 98.6 MCH 32.6 MCHC 33.1 RDW 12.8 Plt Count 165 MPV 11.0 H Immature Gran % (Auto) 1.0 H Neut % (Auto) 62.9 Lymph % (Auto) 17.1 L [place] % (Auto) 14.5 H Eos % (Auto) 4.2 Baso % (Auto) 0.3 Lymph # (Auto) 1.96 [place] # (Auto) 1.7 H Eos # (Auto) 0.5 H Baso # (Auto) 0.0 Abs Immat Gran (auto) 0.12 H Absolute Neuts (auto) 7.2 H Absolute Nucleated RBC 0.000 Nucleated RBC % 0.0 Sodium 131 L Potassium 3.8 Chloride 101 Carbon Dioxide 24 Anion Gap 6 BUN 18 Creatinine 0.67 L Estim Creat Clear Calc 94 Estimated GFR > 60 Glucose 117 H Calcium 8.4 Total Bilirubin 0.9 AST 49 ALT 44 Alkaline Phosphatase 66 Total Protein 6.0 L Albumin 3.1 L
--- NOTE | 2024-10-21 12:19 | P.DS_ITS ---
DS: Admitting Diagnosis Discharge Date 10/21/2024 DS: Discharge Diagnosis Discharge Diagnosis (1) Sepsis: Code(s): A41.9 - Sepsis, unspecified organism Status: Acute Assessment and Plan: * Meets SIRS criteria: Tachycardia, leukocytosis * Likely post-surgical pathological response * lactic acid: 1.1 * suspected source: Unknown * blood cultures drawn on 10/18 -pending * UA: Unremarkable for infection * Urine culture not indicated * CXR: No acute findings * WBC decreased from 15.2 to 13.6 -> 11.5 (2) Closed intertrochanteric fracture of left femur: Qualifiers: Encounter type: subsequent encounter Fracture alignment: displaced Fracture healing: with routine healing Qualified Code(s): S72.142D - Displaced intertrochanteric fracture of left femur, subsequent encounter for closed fracture with routine healing Code(s): S72.142A - Displaced intertrochanteric fracture of left femur, initial encounter for closed fracture Status: Acute Assessment and Plan: * Mechanical fall at home after patient tripped and fell onto his left side, denies striking his head or losing consciousness * Hip and pelvis XR: Mildly displaced left femoral intertrochanteric fracture with slight varus angulation. * Ortho consulted surgical in non operative treatment options or offered * Patient desires operative treatment at this time * Plan for intramedullary nail fixation of the left intertrochanteric hip fracture * NPO until surgery * Consider treatment, pain control, mechanical DVT prophylaxis * Morphine 2mg IV q4hr, [place] 5-325 * On schedule for L Intertrochanteric Nail @ 1500 * POD 8/14.25: Left hip intramedullary hip screw. * Post op care per ortho * Pain medications: [place] 5-325mg PO Q4H KP and PRN, Morphine 2mg IV Q1H PRN . * IV cefazolin * Ice pack * PT/OT -recommending further skilled rehab * Working closely with care coordination regarding outpatient placement * No acute overnight changes (3) Ground-level fall: Code(s): W18.30XA - Fall on same level, unspecified, initial encounter Status: Acute Assessment and Plan: * See above (4) Hyperlipidemia: Qualifiers: Hyperlipidemia type: mixed hyperlipidemia Qualified Code(s): E78.2 - Mixed hyperlipidemia Code(s): E78.5 - Hyperlipidemia, unspecified Status: Acute Assessment and Plan: * Will restart at home medications after procedure (5) HTN (hypertension), benign: Code(s): I10 - Essential (primary) hypertension Status: Acute Assessment and Plan: * Stable, non-medicated * 108/49 DS: Summary Time Spent with Patient Time attestation: Total time spent providing and/or coordinating discharge services: Exam Narrative: Gen - well appearing male in no acute respiratory distress who is nontoxic- appearing lying semi recumbent in bed HEENT - normocephalic. Atraumatic. Pupils equal round and reactive. Extraocular motions intact. Nares patent. Oropharynx was clear. Moist mucous membranes. No facial asymmetry. Neck - neck was supple. No dominant adenopathy, thyromegaly or masses. Chest - lungs are clear to auscultation bilaterally. No wheezes or crackles. CV - heart was regular rate and rhythm. S1-S2. No murmurs gallops or rubs. Abd - abdomen was soft. Nontender. Nondistended. Positive bowel sounds. No organomegaly or masses. Ext - TTP over surgical site. Dressing looks clean, dry and intact. No clubbing, cyanosis or edema. 2+ DP pulses bilaterally. Neuro - patient is alert and oriented x4. Strength is 5/5 in both upper and lower extremities. Cranial nerves 2-12 are intact. Speech is clear. Psych - normal mood and affect. Patient is pleasant and cooperative. Skin - warm and dry. No rashes noted. DS: Data Data Completed and Pending Labs on day of discharge: Labs from last 24 hours 10/21/24 04:59 WBC 11.5 H RBC 2.79 L Hgb 9.1 L Hct 27.5 L MCV 98.6 MCH 32.6 MCHC 33.1 RDW 12.8 Plt Count 165 MPV 11.0 H Immature Gran % (Auto) 1.0 H Neut % (Auto) 62.9 Lymph % (Auto) 17.1 L [place] % (Auto) 14.5 H Eos % (Auto) 4.2 Baso % (Auto) 0.3 Lymph # (Auto) 1.96 [place] # (Auto) 1.7 H Eos # (Auto) 0.5 H Baso # (Auto) 0.0 Abs Immat Gran (auto) 0.12 H Absolute Neuts (auto) 7.2 H Absolute Nucleated RBC 0.000 Nucleated RBC % 0.0 Sodium 131 L Potassium 3.8 Chloride 101 Carbon Dioxide 24 Anion Gap 6 BUN 18 Creatinine 0.67 L Estim Creat Clear Calc 94 Estimated GFR > 60 Glucose 117 H Calcium 8.4 Total Bilirubin 0.9 AST 49 ALT 44 Alkaline Phosphatase 66 Total Protein 6.0 L Albumin 3.1 L Discharge Plan Discharge Attending physician on discharge: Reshma Capellan Consulting providers: Boone Carroll; Vinicio Pearson; Emily Dias Discharging Clinician: Boone Carroll Anticipated Discharge Date/Time: 10/21/24 12:18 Patient Disposition: SNF Activity: may shower and no driving Diet: as tolerated Wound Care Instructions: follow printed instructions Discharge Instructions: Postoperative Hip Fracture Instructions Dr. Vinicio Pearson [phone] * Dressing to be changed daily with an island dressing beginning on post op day #2. May stop dressing changes at post op day #14. Toni to be removed on post op day #14 * Weight bearing: Weight bearing as tolerated. * You may shower with your dressing but do not submerge in a bath tub. * Do not drive or operate machinery until you are released by your surgeon. * Do not walk without a walker for any reason until you are released by your surgeon. * DVT prophylaxis x28 days post op. * Continue to apply ice to the hip intermittently for additional pain relief. Protect your skin with a towel or pillow case. * Continue to follow strict hip fracture precautions. * Please contact our office with any questions/concerns regarding your hip at [phone]. * Follow up appointment instructions indicated below. Patient Instructions: Rivaroxaban (By mouth) Patient Language: Sami Stand Alone Forms: General Discharge Information Follow-up/Referrals: Vinicio Pearson MD [Physician] - 5 Weeks Discharge Medications: New oxycodone-acetaminophen 10-325 mg Tablet 1 tablet PO Q6H PRN (Reason: pain) Qty: 30 0RF Xarelto 10 mg Tablet 10 mg PO DAILY@17 24 Days Qty: 28 0RF Continued cholecalciferol (vitamin D3) 125 mcg (5,000 unit) capsule 125 mcg PO DAILY multivitamin Capsule 1 cap PO DAILY Qty: 90 0RF Aspir-81 81 mg PO DAILY rosuvastatin 20 mg tablet See Rx Instructions .ROUTE .COMPLEX Qty: 90 2RF Dose Instruction: TAKE 1 TABLET BY MOUTH DAILY. Rx Instructions: TAKE 1 TABLET BY MOUTH DAILY. olmesartan 5 mg tablet See Rx Instructions .ROUTE .COMPLEX Qty: 60 2RF Dose Instruction: TAKE 2 TABLETS BY MOUTH DAILY Rx Instructions: TAKE 2 TABLETS BY MOUTH DAILY omega-3 fatty acids 1,000 mg capsule 3,000 mg PO DAILY cyanocobalamin (vitamin B-12) 1,000 mcg Tablet 1,000 mcg PO DAILY folic acid 1 mg Tablet 1 mg PO DAILY tamsulosin 0.4 mg Capsule 0.4 mg PO HS Qty: 30 0RF Date of admission: 10/17/24 04:56 Primary Care Provider: Geraldo Bearden Admitting Provider: Reshma Capellan Attending physician on admission: Reshma Capellan Condition: Stable Quality VTE Prophylaxis VTE prophylaxis: mechanical ordered
--- NOTE | 2024-10-21 13:15 | P.DS_ITS ---
DS: Admitting Diagnosis Discharge Date 10/21/2024 Admitting Diagnosis Closed Intertrochanteric fracture of left femur DS: Discharge Diagnosis Discharge Diagnosis (1) Sepsis: Code(s): A41.9 - Sepsis, unspecified organism Status: Acute Assessment and Plan: * Meets SIRS criteria: Tachycardia, leukocytosis * Likely post-surgical pathological response * lactic acid: 1.1 * suspected source: Unknown * blood cultures drawn on 10/18 -pending * UA: Unremarkable for infection * Urine culture not indicated * CXR: No acute findings * WBC decreased from 15.2 to 13.6 -> 11.5 (2) Closed intertrochanteric fracture of left femur: Qualifiers: Encounter type: subsequent encounter Fracture alignment: displaced Fracture healing: with routine healing Qualified Code(s): S72.142D - Displaced intertrochanteric fracture of left femur, subsequent encounter for closed fracture with routine healing Code(s): S72.142A - Displaced intertrochanteric fracture of left femur, initial encounter for closed fracture Status: Acute Assessment and Plan: * Mechanical fall at home after patient tripped and fell onto his left side, denies striking his head or losing consciousness * Hip and pelvis XR: Mildly displaced left femoral intertrochanteric fracture with slight varus angulation. * Ortho consulted surgical in non operative treatment options or offered * Patient desires operative treatment at this time * Plan for intramedullary nail fixation of the left intertrochanteric hip fracture * NPO until surgery * Consider treatment, pain control, mechanical DVT prophylaxis * Morphine 2mg IV q4hr, [place] 5-325 * On schedule for L Intertrochanteric Nail @ 1500 * POD 10/17.25: Left hip intramedullary hip screw. * Post op care per ortho * Pain medications: [place] 5-325mg PO Q4H KP and PRN, Morphine 2mg IV Q1H PRN . * IV cefazolin * Ice pack * PT/OT -recommending further skilled rehab * Working closely with care coordination regarding outpatient placement * No acute overnight changes (3) Ground-level fall: Code(s): W18.30XA - Fall on same level, unspecified, initial encounter Status: Acute Assessment and Plan: * See above (4) Hyperlipidemia: Qualifiers: Hyperlipidemia type: mixed hyperlipidemia Qualified Code(s): E78.2 - Mixed hyperlipidemia Code(s): E78.5 - Hyperlipidemia, unspecified Status: Acute Assessment and Plan: * Will restart at home medications after procedure (5) HTN (hypertension), benign: Code(s): I10 - Essential (primary) hypertension Status: Acute Assessment and Plan: * Stable, non-medicated * 108/49 DS: Summary Hospital Course Reason for hospitalization: Fall Hospital Course: Ruperto Clements is a 78-year-old male with a pmhx of aortic stenosis, HTN, and prediabetes who presents to the hospital after a mechanical fall that occurred at home. Patient states that he lost his balance the night before admission and fell onto his left side. Denies hitting his head or losing consciousness. Reports that he was unable to get up off of the ground. When he presented to the ER, he was found to have a hip fracture on imaging. Upon presentation, he does not appear to be in any acute distress and denies any other systemic symptoms. Reports intermittent left hip pain with movement, but is able to flex/extend knee and ankle without difficulties. Pain is localized to the lateral aspect of the left proximal femur, no overlying skin changes or external signs of trauma. Denies any chest pain, shortness of breath, nausea/vomiting or loss of bowel/bladder. Ortho consulted regarding close fracture of left femur. ED workup: 36.6 ? C, 81 heart rate, 18 RR, 125/69, 94% room air WBC 7.7, HGB 13.3, HCT 40.8, PLT 191, PT 13.1, INR 1.0, APTT 27.6, sodium 138, potassium 3.5, BUN 15, creatinine 0.73, glucose 113, LFT are WNL Chest XR:Bibasilar infiltrates may represent atelectasis or less likely pneumonia. No significant change compared with 04/13/2022. Hip and pelvis XR: Mildly displaced left femoral intertrochanteric fracture with slight varus angulation. Patient had left hip intramedullary hip screw performed on 10/17 per orthopedic. 10/18/2024 POD 1 Left hip intramedullary hip screw. Working with physical therapy at time of exam. Pt endorses paint at surgical site, without radiation, numbness or tingling. Surgical site looks clean and dry, no obvious signs of excessive bleeding. WBC up to 12.5, likely reactive to surgery, pt is afebrile, no other signs of systemic symptoms. Ortho to continue reassessing. Continue with PT/OT - likely will benefit from further rehab upon discharge. Pt otherwise has no complaints or concerns. 10/19/2024 POD 2 Left hip intramedullary hip screw. Accompanied by at time of exam. Sepsis workup was initiated last night as WBC was elevated in AM labs on 10/18 @ 12.5 and at 2100 the pt had a reported heart rate of 108. Blood cultures drawn (pending), chest XR negative for any acute findings, lactic acid wnl, and urinalysis unremarkable. Will continue to work with PT/OT, likely will need placement for continued rehab. He continues to endorse surgical site discomfort but improving, maintaining WBAT status with adequate pain control. Patient otherwise has no complaints or concerns at this time. 10/20/2024 POD (10/17/2024) Left hip intramedullary hip screw. Accompanied by at time of exam. Currently working with physical therapy. Still endorsing some hip discomfort postprocedure, but otherwise has no complaints. Vital signs remained stable and WBC down from 15.2 to 13.6. Blood culture still pending for sepsis rule out. Patient has no complaints or concerns. Pending placement for continued rehab in the outpatient setting. On 10/21, WBC continued to decrease, now 11.5. Patient continues to improve with physical therapy and overall pain management. Initial blood culture results have showed no growth to date. Per orthopedic note - good to discharge to SNF for rehab. Pt is hemodynamically stable for discharge at this point. Discharge to [facility]. Status at Discharge Functional status at discharge: uses cane/walker Overall status at discharge: patient is progressing back to baseline Time Spent with Patient Time attestation: Total time spent providing and/or coordinating discharge services: 35 Exam Narrative: Gen - well appearing male in no acute respiratory distress who is nontoxic- appearing lying semi recumbent in bed HEENT - normocephalic. Atraumatic. Pupils equal round and reactive. Extraocular motions intact. Nares patent. Oropharynx was clear. Moist mucous membranes. No facial asymmetry. Neck - neck was supple. No dominant adenopathy, thyromegaly or masses. Chest - lungs are clear to auscultation bilaterally. No wheezes or crackles. CV - heart was regular rate and rhythm. S1-S2. No murmurs gallops or rubs. Abd - abdomen was soft. Nontender. Nondistended. Positive bowel sounds. No organomegaly or masses. Ext - TTP over surgical site. Dressing looks clean, dry and intact. No clubbing, cyanosis or edema. 2+ DP pulses bilaterally. Neuro - patient is alert and oriented x4. Strength is 5/5 in both upper and lower extremities. Cranial nerves 2-12 are intact. Speech is clear. Psych - normal mood and affect. Patient is pleasant and cooperative. Skin - warm and dry. No rashes noted. DS: Data Data Completed and Pending Labs on day of discharge: Labs from last 24 hours 10/21/24 04:59 WBC 11.5 H RBC 2.79 L Hgb 9.1 L Hct 27.5 L MCV 98.6 MCH 32.6 MCHC 33.1 RDW 12.8 Plt Count 165 MPV 11.0 H Immature Gran % (Auto) 1.0 H Neut % (Auto) 62.9 Lymph % (Auto) 17.1 L [place] % (Auto) 14.5 H Eos % (Auto) 4.2 Baso % (Auto) 0.3 Lymph # (Auto) 1.96 [place] # (Auto) 1.7 H Eos # (Auto) 0.5 H Baso # (Auto) 0.0 Abs Immat Gran (auto) 0.12 H Absolute Neuts (auto) 7.2 H Absolute Nucleated RBC 0.000 Nucleated RBC % 0.0 Sodium 131 L Potassium 3.8 Chloride 101 Carbon Dioxide 24 Anion Gap 6 BUN 18 Creatinine 0.67 L Estim Creat Clear Calc 94 Estimated GFR > 60 Glucose 117 H Calcium 8.4 Total Bilirubin 0.9 AST 49 ALT 44 Alkaline Phosphatase 66 Total Protein 6.0 L Albumin 3.1 L Preliminary micro results at discharge 10/18/24 23:22 Blood Culture - Preliminary Blood 10/18/24 23:29 Blood Culture - Preliminary Blood Discharge Plan Discharge Attending physician on discharge: Reshma Capellan Consulting providers: Boone Carroll; Vinicio Pearson; Emily Dias Discharging Clinician: Boone Carroll Anticipated Discharge Date/Time: 10/21/24 13:14 Patient Disposition: SNF Activity: may shower and no driving Diet: as tolerated Wound Care Instructions: follow printed instructions Discharge Instructions: Postoperative Hip Fracture Instructions Dr. Vinicio Pearson [phone] * Dressing to be changed daily with an island dressing beginning on post op day #2. May stop dressing changes at post op day #14. Toni to be removed on post op day #14 * Weight bearing: Weight bearing as tolerated. * You may shower with your dressing but do not submerge in a bath tub. * Do not drive or operate machinery until you are released by your surgeon. * Do not walk without a walker for any reason until you are released by your surgeon. * DVT prophylaxis x28 days post op. * Continue to apply ice to the hip intermittently for additional pain relief. Protect your skin with a towel or pillow case. * Continue to follow strict hip fracture precautions. * Please contact our office with any questions/concerns regarding your hip at [phone]. * Follow up appointment instructions indicated below. Patient Instructions: Rivaroxaban (By mouth) Patient Language: Tajik Stand Alone Forms: General Discharge Information Follow-up/Referrals: Vinicio Pearson MD [Physician] - 11/26/24 9:00 am Discharge Medications: New Xarelto 10 mg Tablet 10 mg PO DAILY@17 24 Days Qty: 28 0RF oxycodone-acetaminophen 10-325 mg Tablet 1 tablet PO Q6H PRN (Reason: pain) Qty: 30 0RF Continued cholecalciferol (vitamin D3) 125 mcg (5,000 unit) capsule 125 mcg PO DAILY multivitamin Capsule 1 cap PO DAILY Qty: 90 0RF Aspir-81 81 mg PO DAILY rosuvastatin 20 mg tablet See Rx Instructions .ROUTE .COMPLEX Qty: 90 2RF Dose Instruction: TAKE 1 TABLET BY MOUTH DAILY. Rx Instructions: TAKE 1 TABLET BY MOUTH DAILY. olmesartan 5 mg tablet See Rx Instructions .ROUTE .COMPLEX Qty: 60 2RF Dose Instruction: TAKE 2 TABLETS BY MOUTH DAILY Rx Instructions: TAKE 2 TABLETS BY MOUTH DAILY omega-3 fatty acids 1,000 mg capsule 3,000 mg PO DAILY cyanocobalamin (vitamin B-12) 1,000 mcg Tablet 1,000 mcg PO DAILY folic acid 1 mg Tablet 1 mg PO DAILY tamsulosin 0.4 mg Capsule 0.4 mg PO HS Qty: 30 0RF Date of admission: 10/17/24 04:56 Primary Care Provider: Geraldo Bearden Admitting Provider: Reshma Capellan Attending physician on admission: Reshma Capellan Condition: Stable Quality VTE Prophylaxis VTE prophylaxis: mechanical ordered
[2024-10-21 14:00] VITALS: BP 99/48; PULSE 92; RESP 18; TEMP 36; O2SAT 93
== END 2024-10-21 14:30 | DRG 482 ==
LOC: ANHED 03:35 → ANH3MEDSUR 06:34
PROVIDERS: Nurse Practitioner Gerontology; Orthopaedic Surgery; Admitting Provider Family Medicine; Emergency Provider Student in an Organized Health Care Education/Training Program; PCP Internal Medicine; Visit Provider Physician Assistant
PROC: 0QS736Z Reposition Left Upper Femur with Intramedullary Internal Fixation Device, Percutaneous Approach (ICD-10-PCS; CPT 27245; principal; 2024-10-17 15:00)
DX: S72.142A Displaced intertrochanteric fracture of left femur, initial encounter for closed fracture (principal); W01.0XXA Fall on same level from slipping, tripping and stumbling without subsequent striking against object, initial encounter; I10 Essential (primary) hypertension; R73.03 Prediabetes; I35.0 Nonrheumatic aortic (valve) stenosis; G62.9 Polyneuropathy, unspecified; R91.8 Other nonspecific abnormal finding of lung field; E78.5 Hyperlipidemia, unspecified; G47.33 Obstructive sleep apnea (adult) (pediatric); Z86.73 Personal history of transient ischemic attack (TIA), and cerebral infarction without residual deficits; Z87.891 Personal history of nicotine dependence; E66.9 Obesity, unspecified; Z68.31 Body mass index [BMI] 31.0-31.9, adult
CPT/HCPCS: 36415; 71045; 73502; 80053; 81001; 83605; 85025; 85610; 85730; 86850; 86900; 86901; 87040; 93005; 96374; 96375; 96376; 97110; 97162; 97166; 97530; 97535; 99199; 99285; J0690; A9270; C1713; J1171; J1741; J2270; J2405; J2704; J3010; J7030; J7120

== ENCOUNTER 2024-12-25 09:45 | Outpatient (CLI) | payer MEDICARE, SELFPAY ==
[2024-12-25 10:55] LABS: Hematocrit 41.1 % (42.0-52.0); Hemoglobin 13.1 g/dL (14.0-18.0); Immature Granulocyte Percent A 0.4 % (0-0.5); Lymphocytes Absolute Auto 1.95 K/mm3 (0.9-3.2); Mean Corpuscular HGB Conc 31.9 g/dl (32-36); Mean Corpuscular Hemoglobin 29.8 pg (26-34); Mean Corpuscular Volume 93.4 fl (80-100); Nucleated Red Blood Cells Absolute Auto 0.000 K/mm3 (0.0-0.012); Nucleated Red Blood Cells Perc 0.0 % (0.0-0.2); Platelet Count Result 216 k/mm3 (150-375); Red Blood Count 4.40 M/mm3 (4.6-6.20); White Blood Count 7.6 K/mm3 (4.5-10.0)
[2024-12-25 11:05] LABS: Hemoglobin A1C 5.4 % (<5.7)
--- OUTSIDE RECORDS SUMMARY | 2024-12-25 11:15 | XMS_ITS | Clinical Summary ---
Author Organization [facility] [employer] Address [address] [place] [address] Care Team Providers Care Ornament Stapler Name Role Phone Geraldo Bearden MD Primary Care Provider Source Comments [facility] [employer],non-owned Affiliates and Associated Physician Practices is amultiple site organization consisting of ambulatory clinics and hospital sitesin [place], [place], [place] and [place]. This disclosure is being madepursuant to the Care Everywhere program and may not contain all information available regarding this patient. Last updated 17.[facility] [employer] Allergies No known active allergies Medications * Be aware that medications may not be up to date on this document. Alwaysverify current medications with the patient. aspirin (ASPIRIN) 81 MG tablet Take 1 (one) tablet by mouth once daily Active [place]-3 Fatty Acids (FISH OIL) 1200 MG Active [...] care, and heating? Not very hard 02/03/2023 [facility] [place] [facility] Occupat ional Health - Occupational Stress [...] place to sleep or slept in a skilled nursing (including now)? No 02/03/2023 Sex and Gender Information Value Date Recorded Sex Assigned at Not on file Legal Sex Male 6:56 PM UPPER AND BOTTOM LACER HAND Gender Identity Not on file Sexual Orientation Not on file Last Filed Vital Signs Vital Sign Reading Time Taken Comments Blood Pressure 144/67 02/08/2023 8:04 AM UPPER AND BOTTOM LACER HAND Pulse 71 02/08/2023 8:04 AM UPPER AND BOTTOM LACER HAND Temperature 36.6 C (97.9 F) 02/08/2023 8:04 AM UPPER AND BOTTOM LACER HAND Respiratory Rate 20 02/07/2023 12:20 PM UPPER AND BOTTOM LACER HAND Oxygen Saturation 94% 02/08/2023 8:04 AM UPPER AND BOTTOM LACER HAND Inhaled Oxygen Concentration - - Weight 104.3 kg (230 lb) 02/03/2023 6:11 AM UPPER AND BOTTOM LACER HAND Height 180.3 cm (5' 11) 02/03/2023 6:11 AM UPPER AND BOTTOM LACER HAND Body Mass Index 32.08 02/03/2023 6:11 AM UPPER AND BOTTOM LACER HAND Plan of Treatment Health Maintenance Due Date Last Done Comments MEDICARE AWV 12 MONTHS 1945 DTAP/TDAP/TD VACCINES (1 - Tdap) 1964 PNEUMOCOCCAL VACCINE 50+ (1 of 2 - PCV) 1964 ZOSTER VACCINE (1 of 2) 09/23/1995 Respiratory Syncytial Virus (RSV) Vaccine Pt: or over 60 yrs (1 - 1-dose 75+ series) 2020 DEPRESSION SCREENING 03/06/2024 COVID-19 VACCINE (3 - 2024-2 6 season) 2024 05/08/2020, 04/11/2020 INFLUENZA VACCINE (#1) 2024 , 12/22/2017 HEPATITIS [...] this topic Medical Devices Implanted Type Area Cutting Tool Sharpener Device Identifier Shelf Expiration Date Model / Serial / Lot Plug Ocl 7mm Mvp Gian Vasc [facility] V03 Strl Implanted:Qty: 1 on 02/03/2023 by Santiago Ruelas MD at [facility] Left: Arterial [employer] 06/03/2024 MVP-[id number] / / [id number] [place] [address] MEDICARE ANTHEM MEDICARE ANTHEM SELF PAY NO INSURANCE Member Subscriber Plan / Payer (Ef fective for All Dates) Name:Heriberto Jacobo Member ID:Not on file Relation to Subscriber:Not on file Name:DONNELLHERIBERTO Kameron Subscriber ID:Not on file (Home) Address: [address] [place] [address] Payer ID:Not on file Group ID:Not on file Type:Self Pay Address: [place], [place] MEDICARE Member Subscriber Plan / Payer (Ef fective for All Dates) Name:JacoboHeriberto perea Member ID:[id number] Relation to Subscriber:Self Name:JacoboHeriberto perea Subscriber ID:[id number] Payer ID:Not on file Group ID:Not on file Type:Medicare Address: [place] [phone] MEDICARE Member Subscriber Plan / Payer (Ef fective for All Dates) Name:Jacobo Heriberto Melo Member ID:[id number] Relation to Subscriber:Self Name:Heriberto Jacobo Subscriber ID:[id number] Payer ID:Not on file Group ID:Not on file Type:Medicare Address: [place] [phone] Advance Directives * Full Code (Latest Code Status on File) Date Activated Date Inactivated Comments 02/03/2023 7:07 AM 02/08/2023 1:53 PM Care Teams Ornament Stapler Relationship Specialty Start Date End Date Geraldo Bearden MD [address] [place] [address] PCP - General 01/05/10
--- OUTSIDE RECORDS SUMMARY | 2024-12-25 11:15 | XMS_ITS | Clinical Summary ---
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 05/21/2019 Encounters Date Type Department Care Team Description 11/06/2024 Orders Only [facility] Cardiology [address] [place] [address] Emily Dias NP from Last 3 Months Social History Tobacco Use Types Packs/Day Years Used Date Smoking Tobacco: Former Smokeless Tobacco: Never Tobacco Cessation:Counseling Given: Not Answered Sex and Gender Information Value Date Recorded Sex Assigned at Not on file Legal Sex Male 4:16 PM STERILISATION TECHNICIAN Gender Identity Not on file Sexual Orientation Not on file Obstetrics History Last Filed Vital Signs Vital Sign Reading Time Taken Comments Blood Pressure 130/70 02/05/2024 9:59 AM STERILISATION TECHNICIAN Pulse 89 02/05/2024 9:59 AM STERILISATION TECHNICIAN Temperature - - Respiratory Rate - - Oxygen Saturation 90% 02/05/2024 9:59 AM STERILISATION TECHNICIAN Inhaled Oxygen Concentration - - Weight 98.4 kg (217 lb) 02/05/2024 9:59 AM STERILISATION TECHNICIAN Height 180.3 cm (5' 11) 02/05/2024 9:59 AM STERILISATION TECHNICIAN Body Mass Index 30.27 02/05/2024 9:59 AM STERILISATION TECHNICIAN Plan of Treatment Health Maintenance Due Date [...] Aortic Aneurysm (AAA) Screen Completed , 02/03/2023 Procedures Procedure Name Priority Date/Time Associated Diagnosis Comments CARDIOLOGY DOCUMENT SCAN Routine 10/17/2024 2:57 PM CDT from Last 3 Months Results * Cardiology Document Scan (10/17/2024 2:57 PM CDT) Anatomical Region Laterality Modality Other Emily Dias NP CV CARDIAC SERVICES PROCEDUR ES Final Result from Last [address] [place] [address] MEDICARE [facility] MEDICARE SUPPLEMENT Care Teams Bone Cooking Operator Relationship Specialty Start Date End Date Geraldo Bearden MD PCP - General Internal Medicine 03/05/19
[2024-12-25 11:20] LABS: Alanine Aminotransferase 18 U/L (6-50); Albumin Level 3.9 g/dL (3.5-5.1); Alkaline Phosphatase 75 U/L (38-126); Anion Gap 7 mmol/L (4-12); Aspartate Amino Transferase 27 U/L (17-59); Bilirubin,Total 0.4 mg/dL (0.2-1.3); Blood Urea Nitrogen 9 mg/dL (9-20); Calcium 9.1 mg/dL (8.4-10.2); Carbon Dioxide 28 mmol/L (22-30); Chloride 105 mmol/L (98-107); Cholesterol 203 mg/dL (0-200); Estimated Glomerular Filt Rate > 60; Glucose 109 mg/dL (65-110); HDL Direct 41 mg/dL; Potassium 3.6 mmol/L (3.4-5.0); Sodium 140 mmol/L (137-145); Total Protein 7.3 g/dL (6.3-8.2); Triglycerides 173 mg/dL (<150)
[2024-12-25 11:35] LABS: Free T4 Free Thyroxine 1.04 ng/dL (0.78-2.19)
[2024-12-25 11:55] LABS: Thyroid Stimulating Hormone 2.780 uIU/mL (0.465-4.680)
== END 2024-12-25 09:46 | disposition home or self-care (01) ==
LOC: ANHLAB 09:46
PROVIDERS: PCP Internal Medicine; Visit Provider Internal Medicine
DX: E78.2 Mixed hyperlipidemia (principal); I10 Essential (primary) hypertension; R73.03 Prediabetes; Z79.899 Other long term (current) drug therapy; Z13.29 Encounter for screening for other suspected endocrine disorder
CPT/HCPCS: 36415; 80053; 80061; 83036; 84439; 84443; 85025